=== PATIENT | female | born 1990 | race Caucasian/White ===

== ENCOUNTER 2017-02-06 15:12 | Emergency (ER) | payer OTHER ==
[~2017-02-06] VITALS: Ht 170.2 cm; Wt 88.9 kg
[~2017-02-06 15:12] MED LIST: BENTYL10 MG PO; DOXYCYCLINE HY100 MG PO; NORCO 5-325 TA1 EACH PO; NUVARING VAGIN1 EACH VAGINAL; OMEPRAZOLE20 MG PO; ZENZEDI2.5 MG PO; ZOLOFT100 MG PO
== END 2017-02-06 15:48 | disposition home or self-care (01) ==
LOC: ED 15:12
DX: H92.03 Otalgia, bilateral (principal)

== ENCOUNTER 2017-08-29 15:25 | Emergency (ER) | payer OTHER ==
[~2017-08-29] VITALS: Ht 170.2 cm; Wt 88.9 kg
[2017-08-29] MEDS ORDERED: ZOLOFT100 MG PO (15:41)
[2017-08-29] MEDS ORDERED: TOPROL XL25 MG PO (15:41)
[2017-08-29] MEDS ORDERED: XULANE PATCH1 EACH TD (15:48)
[2017-08-29] MEDS ORDERED: ULTRAM50 MG PO (18:57)
== END 2017-08-29 19:02 | disposition home or self-care (01) ==
LOC: ED 15:25
DX: R10.2 Pelvic and perineal pain (principal); F32.9 Major depressive disorder, single episode, unspecified; F17.200 Nicotine dependence, unspecified, uncomplicated; Z88.1 Allergy status to other antibiotic agents; Z88.8 Allergy status to other drugs, medicaments and biological substances; Z79.899 Other long term (current) drug therapy
CPT/HCPCS: 76830; 76856; 81001; 84703; 85025; 99284

== ENCOUNTER 2019-01-23 19:05 | Emergency (ER) | payer SELFPAY ==
[~2019-01-23] VITALS: Ht 170.2 cm; Wt 79.4 kg
--- OUTSIDE RECORDS SUMMARY | ~2019-01-23 | XMS | Encounter Summary ---
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 Oral Daily sodium chloride (PF) 10 mL Intravenous Q8H Continuous Infusions lactated ringers 125 mL/hr (03/21/14 0705) PRN Medications acetaminophen, calcium carbonate, diphenhydrAMINE (BENADRYL) IVPB, diphenhydrAMINE, lactate d ringers, lactated ringers, magnesium hydroxide, ondansetron, zolpidem OBJECTIVE Vital Signs: BP 141/76 | Pulse 75 | Temp(Src) 98.5 F (36.9 C) (Oral) | Resp 16 | Ht 1.702 m (5' 7") | Wt 82.101 kg (181 lb) | BMI 28.34 kg/m2 Temp: [98.2 F (36.8 C)-98.5 F (36.9 C)] 98.5 F (36.9 C) (03/22 1111) BP: (130-141)/(76-83) 141/76 mmHg (03/22 1111) Heart Rate: [75-83] 75 (03/22 1111) Resp: [16-18] 16 (03/22 1111) Physical Exam Constitutional: She appears well-developed and well-nourished. No distress. Pulmonary/Chest: Effort normal. No respiratory distress. Abdominal: Soft. There is no tenderness. There is no rebound and no guarding. NST reactive with normal baseline, moderate variability and no decelerations. [place]: irregul ar few contractions Musculoskeletal: She exhibits no edema. DATA CBC: Lab Results Component Value Date WBC 12.0* 03/22/2014 RBC 3.57* 03/22/2014 HGB 11.2* 03/22/2014 HCT 32.8* 03/22/2014 MCV 92.0 03/22/2014 MCH 31.3 03/22/2014 MCHC 34.0 03/22/2014 RDW 43.8 03/22/2014 PLT 180 03/22/2014 MPV 9.3 03/22/2014 DIFFTYPE MANUAL 03/22/2014 PROBLEM LIST Principal Problem: premature rupture of membranes in third trimester, Mar 19 ASSESSMENT & PLAN PPROM Day 4. Reassuring status No signs or symptoms of chorioamnionitis, not in labor No indication to deliver at this time Disposition: Inpatient Code Status: Full Code Suha Miranda MD 03/22/2014 Becka Sharif MD - 03/21/2014 11:19 AM PSTFormatting of this note might be different from the origi nal. Progress Notes by Suha Miranda MD at 03/21/14 1119 Author: Suha Miranda MD Service: (none) Author Type: Physician Filed: 03/21/14 1126 Date of Service: 03/21/14 111 Status: Addendum Housekeeper: Suha Miranda MD (Physician) Related Notes: Original Note by Suha Miranda MD (Physician) filed at 03/21/14 1121 [facility] Service: Obstetrics & Gynecology Progress Note Hospital Day: LOS: 2 days SUBJECTIVE Reports good movement. Continues to leak fluid per vagina, but denies vaginal bleedin g. Denies labor contractions but says her left lower abdomen "feels tender". Scheduled Medications azithromycin 1,000 mg Oral Daily clindamycin 300 mg Oral Q6H docusate sodium 100 mg Oral Daily lidocaine buffered 1% 0.5 mL Intradermal Once multivitamin & minerals w iron/FA 1 tablet Oral Daily with breakfast sertraline 100 mg Oral Daily sodium chloride (PF) 10 mL Intravenous Q8H Continuous Infusions lactated ringers 125 mL/hr (03/21/14 0705) PRN Medications acetaminophen, calcium carbonate, diphenhydrAMINE (BENADRYL) IVPB, diphenhydrAMINE, lactate d ringers, lactated ringers, magnesium hydroxide, ondansetron, zolpidem OBJECTIVE Vital Signs: BP 132/78 | Pulse 88 | Temp(Src) 98.2 F (36.8 C) (Oral) | Resp 18 | Ht 1.702 m (5' 7") | Wt 82.101 kg (181 lb) | BMI 28.34 kg/m2 Temp: [98.2 F (36.8 C)-98.4 F (36.9 C)] 98.2 F (36.8 C) (03/21 0840) BP: (117-132)/(61-78) 132/78 mmHg (03/21 839) Heart Rate: [79-90] 88 (03/21 839) Resp: [18] 18 (03/21 839) Physical Exam Constitutional: She appears well-developed and well-nourished. No distress. Pulmonary/Chest: Effort normal. No respiratory distress. Abdominal: Soft. There is no tenderness. There is no rebound and no guarding. No fundal tenderness NST reactive with normal baseline, moderate variability and no decelerations. [place]: irritability Musculoskeletal: She exhibits no edema or tenderness. DATA CBC: Lab Results Component Value Date WBC 14.0* 03/21/2014 RBC 3.55* 03/21/2014 HGB 11.2* 03/21/2014 HCT 32.5* 03/21/2014 MCV 91.5 03/21/2014 MCH 31.5 03/21/2014 MCHC 34.4 03/21/2014 RDW 42.0 03/21/2014 PLT 178 03/21/2014 MPV 9.8 03/21/2014 DIFFTYPE MANUAL 03/21/2014 PROBLEM LIST Principal Problem: premature rupture of membranes in third trimester, Mar 19 ASSESSMENT & PLAN PPROM Day 3. Not in labor, no chorioamnionitis Discontinued Magnesium Clindamycin and Azithromycin to oral. Disposition: Inpatient Code Status: Full Code Suha Miranda MD 03/21/2014 Becka Sharif MD - 03/20/2014 6:55 AM PSTFormatting of this note might be different from the origi nal. Progress Notes by Suha Miranda MD at 03/20/14654 Author: Suha Miranda MD Service: (none) Author Type: Physician Filed: 03/20/14 0658 Date of Service: 03/20/14654 Status: Signed Housekeeper: Suha Miranda MD (Physician) [facility] Service: Obstetrics & Gynecology Progress Note Hospital Day: LOS: 1 day SUBJECTIVE Complains of back pain. Otherwise comfortable. Reports good movement. Denies vaginal bleeding or painful contractions Scheduled Medications azithromycin 500 mg Intravenous Q24H betamethasone acetate-betamethasone sodium phosphate 12 mg Intramuscular Once clindamycin 900 mg Intravenous Q8H docusate sodium 100 mg Oral Daily influenza vaccine quadrivalent-split 0.5 mL Intramuscular Once Immunization lidocaine buffered 1% 0.5 mL Intradermal Once phenazopyridine 100 mg Oral TID WC pneumococcal 23-valent vaccine 0.5 mL Intramuscular Once Immunization multivitamin & minerals w iron/FA 1 tablet Oral Daily with breakfast sertraline 100 mg Oral Daily sodium chloride (PF) 10 mL Intravenous Q8H sodium chloride 0.9 % 10 mL Intravenous Q8H Continuous Infusions lactated ringers 75 mL/hr (03/19/142236) lactated ringers magnesium sulfate in LR 40g/1000mL 2 g/hr (03/19/142110) PRN Medications acetaminophen, calcium carbonate, calcium gluconate, lactated ringers, lactated ringers, la ctated ringers, lactated ringers, magnesium hydroxide, ondansetron, zolpidem OBJECTIVE Vital Signs: BP 120/56 | Pulse 80 | Temp(Src) 97.9 F (36.6 C) (Oral) | Resp 18 | Ht 1.702 m (5' 7") | Wt 82.101 kg (181 lb) | BMI 28.34 kg/m2 Temp: [97.9 F (36.6 C)-98.8 F (37.1 C)] 97.9 F (36.6 C) (03/20 325) BP: (118-136)/(55-82) 120/56 mmHg (03/20 325) Heart Rate: [78-90] 80 (03/20 325) Resp: [18-20] 18 (03/20 325) Height: [170.2 cm (5' 7")] 170.2 cm (5' 7") (03/19 1850) Weight: [82.101 kg (181 lb)] 82.101 kg (181 lb) (03/19 1850) BMI (Calculated): [28.4] 28.4 (03/19 1850) Physical Exam Constitutional: She appears well-developed and well-nourished. No distress. Cardiovascular: Normal rate, regular rhythm and normal heart sounds. Pulmonary/Chest: Breath sounds normal. No respiratory distress. She has no wheezes. She has no rales. Abdominal: Soft. There is no tenderness. There is no rebound and no guarding. NST reactive with normal baseline, moderate variability and no decelerations. [place]: no contractions Musculoskeletal: She exhibits no edema or tenderness. DATA CBC: Lab Results Component Value Date WBC 13.0* 03/20/2014 RBC 3.83 03/20/2014 HGB 12.2 03/20/2014 HCT 34.8 03/20/2014 MCV 90.9 03/20/2014 MCH 31.9 03/20/2014 MCHC 35.0 03/20/2014 RDW 41.1 03/20/2014 PLT 206 03/20/2014 MPV 9.8 03/20/2014 DIFFTYPE MANUAL 03/20/2014 Ultrasound Ob Limited 03/19/2014 1. Single live intrauterine gestation in cephalic orientation. 2. Cervix inco mpletely visualized, appears closed, 3.6 cm in length. 3. Fundal grade 1 placenta. 4. CHARO 12.7 cm. 5. Composite ultrasound age 32 weeks 4 days plus/-2 weeks 2 days, with ultrasound CARL 05/10/14, compared with LMP CARL 05/13/14. Electronically signed by Fermin Harper MD on 8:31 PM PROBLEM LIST Principal Problem: premature rupture of membranes in third trimester, Mar 19 ASSESSMENT & PLAN PPROM at [id number]. Reassuring status No signs or symptoms of chorioamnionitis or labor Continue Magnesium sulfate Continue Clindamycin and Azithromycin Second dose of Betamethasone today. Disposition: Inpatient Code Status: Full Code SUHA MIRANDA MD 03/20/2014 documented in t his encounter Plan of Treatment Not on filedocumented as of this encounter Procedures + +--------+ + + + | Procedure Name | Priori | Date/Time | Associated Diagnosis | Comments | | | ty | | | | + +--------+ + + + | CBC NO DIFFERENTIAL | Routin | 04/02/2014 | | Results for this | | | e | 5:05 AM | | procedure are in the | | | | PST | | results section. | + +--------+ + + + | TISSUE REQUEST FOR | Routin | 04/02/2014 | | Results for this | | PATHOLOGY (NON-ORD) | e | 12:00 AM | | procedure are in the | | | | PST | | results section. | + +--------+ + + + | EXTERNAL LAB: CBC | Routin | 03/31/2014 | | Results for this | | | e | 4:25 AM | | procedure are in the | | | | PST | | results section. | + +--------+ + + + | EXTERNAL LAB: CBC | Routin | 03/30/2014 | | Results for this | | | e | 5:48 PM | | procedure are in the | | | | PST | | results section. | + +--------+ + + + | EXTERNAL LAB: CBC | Routin | 03/30/2014 | | Results for this | | | e | 5:19 AM | | procedure are in the | | | | PST | | results section. | + +--------+ + + + | US BIOPHYSICAL | Routin | 03/29/2014 | | Results for this | | PROFILE WO NON | e | 9:13 PM | | procedure are in the | | STRESS | | PST | | results section. | + +--------+ + + + | EXTERNAL LAB: CBC | Routin | 03/29/2014 | | Results for this | | | e | 8:46 AM | | procedure are in the | | | | PST | | results section. | + +--------+ + + + | EXTERNAL LAB: AIDE | Routin | 03/29/2014 | | Results for this | | | e | 12:49 AM | | procedure are in the | | | | PST | | results section. | + +--------+ + + + | US BIOPHYSICAL | Routin | 03/27/2014 | | Results for this | | PROFILE WO NON | e | 10:12 AM | | procedure are in the | | STRESS | | PST | | results section. | + +--------+ + + + | EXTERNAL LAB: AIDE | Routin | 03/27/2014 | | Results for this | | | e | 8:26 AM | | procedure are in the | | | | PST | | results section. | + +--------+ + + + | US BIOPHYSICAL | Routin | 03/26/2014 | | Results for this | | PROFILE WO NON | e | 7:56 PM | | procedure are in the | | STRESS | | PST | | results section. | + +--------+ + + + | US BIOPHYSICAL | Routin | 03/25/2014 | | Results for this | | PROFILE WO NON | e | 8:49 PM | | procedure are in the | | STRESS | | PST | | results section. | + +--------+ + + + | C-REACTIVE PROTEIN | Routin | 03/25/2014 | | Results for this | | | e | 7:04 PM | | procedure are in the | | | | PST | | results section. | + +--------+ + + + | EXTERNAL LAB: CBC | Routin | 03/25/2014 | | Results for this | | | e | 5:13 AM | | procedure are in the | | | | PST | | results section. | + +--------+ + + + | EXTERNAL LAB: AIDE | Routin | 03/24/2014 | | Results for this | | | e | 4:38 AM | | procedure are in the | | | | PST | | results section. | + +--------+ + + + | US BIOPHYSICAL | Routin | 03/23/2014 | | Results for this | | PROFILE WO NON | e | 9:27 AM | | procedure are in the | | STRESS | | PST | | results section. | + +--------+ + + + | EXTERNAL LAB: AIDE | Routin | 03/23/2014 | | Results for this | | | e | 4:36 AM | | procedure are in the | | | | PST | | results section. | + +--------+ + + + | EXTERNAL LAB: AIDE | Routin | 03/22/2014 | | Results for this | | | e | 4:51 AM | | procedure are in the | | | | PST | | results section. | + +--------+ + + + | EXTERNAL LAB: AIDE | Routin | 03/21/2014 | | Results for this | | | e | 5:17 AM | | procedure are in the | | | | PST | | results section. | + +--------+ + + + | US BIOPHYSICAL | Routin | 03/20/2014 | | Results for this | | PROFILE WO NON | e | 8:51 AM | | procedure are in the | | STRESS | | PST | | results section. | + +--------+ + + + | EXTERNAL LAB: AIDE | Routin | 03/20/2014 | | Results for this | | | e | 4:31 AM | | procedure are in the | | | | PST | | results section. | + +--------+ + + + | COMPREHENSIVE | Routin | 03/20/2014 | | Results for this | | METABOLIC PANEL | e | 4:31 AM | | procedure are in the | | | | PST | | results section. | + +--------+ + + + | STREP B SCREEN | Routin | 03/19/2014 | | Results for this | | | e | 8:41 PM | | procedure are in the | | | | PST | | results section. | + +--------+ + + + | STREP B DNA PROBE, | Routin | 03/19/2014 | | Results for this | | NAAT | e | 8:41 PM | | procedure are in the | | | | PST | | results section. | + +--------+ + + + | US OB LIMITED 1 OR | Routin | 03/19/2014 | | Results for this | | MORE FETUS | e | 7:55 PM | | procedure are in the | | | | PST | | results section. | + +--------+ + + + | HIV 1 AND 2 ANTIBODY | Routin | 09/26/2013 | | Results for this | | DIFFERENTIATION | e | 12:00 AM | | procedure are in the | | | | PDT | | results section. | + +--------+ + + + | OBSTETRICS PANEL | Routin | 09/26/2013 | | Results for this | | | e | 12:00 AM | | procedure are in the | | | | PDT | | results section. | + +--------+ + + + documented in this encounter Results CBC no Differential (04/02/2014 5:05 AM PST) + + + + + + | Component | Value | Ref Range | Performed | Pathologist | | | | | At | Signature | + + + + + + | WBC | 11.8 (H)Comment: Testing | 3.8 - 11.0 K/uL | EXTERNAL | | | | performed at [facility], [address] | | LAB | | | | [address], | | | | | | [place] [address] | | | | + + + + + + | RED CELL | 3.40 (L)Comment: Testing | 3.70 - 5.10 | EXTERNAL | | | COUNT | performed at [facility], [address] | M/uL | LAB | | | | [address], | | | | | | [place] [address] | | | | + + + + + + | Hgb | 10.8 (L)Comment: Testing | 11.3 - 15.5 | EXTERNAL | | | | performed at [facility], [address] | g/dL | LAB | | | | [address], | | | | | | [place] [address] | | | | + + + + + + | Hematocrit, | 31.0 (L)Comment: Testing | 34.0 - 46.0 % | EXTERNAL | | | POC | performed at [facility], [address] | | LAB | | | | [address], | | | | | | [place] [address] | | | | + + + + + + | MCV | 91.3Comment: Testing | 80.0 - 100.0 fl | EXTERNAL | | | | performed at [facility], [address] | | LAB | | | | [address], | | | | | | [place] [address] | | | | + + + + + + | MCH | 31.9Comment: Testing | 27.0 - 34.0 pg | EXTERNAL | | | | performed at [facility], [address] | | LAB | | | | [address], | | | | | | [place] [address] | | | | + + + + + + | MCHC | 34.9Comment: Testing | 32.0 - 35.5 | EXTERNAL | | | | performed at [facility], [address] | g/dL | LAB | | | | [address], | | | | | | [place] [address] | | | | + + + + + + | RDW-CV | 41.6Comment: Testing | 37 - 53 fl | EXTERNAL | | | | performed at [facility], [address] | | LAB | | | | [address], | | | | | | [place] [address] | | | | + + + + + + | Platelet | 165Comment: Testing | 150 - 400 K/uL | EXTERNAL | | | Count | performed at [facility], [address] | | LAB | | | Plasma | [address], | | | | | | [place] [address] | | | | + + + + + + | MPV | 9.4Comment: Testing | fl | EXTERNAL | | | | performed at [facility], [address] | | LAB | | | | [address], | | | | | | [place] [address] | | | | + + + + + + + + | Specimen | + + | | + + + +---------+ + + | Performing | Address | City/State/Zipcode | Phone Number | | Organization | | | | + +---------+ + + | EXTERNAL LAB | | | | + +---------+ + + Tissue Request For Pathology (04/02/2014 12:00 AM PST) + + | Specimen | + + | Soft tissue sample | | (specimen) | + + + + + | Narrative | Performed At | + + + | SPECIMEN(S): A PLACENTA - MICRO 3T SPECIMEN SOURCE: A. PLACENTA | EXTERNAL LAB | | - MICRO 3T CLINICAL HISTORY: 04/01/2014 at 0811 H. Mother's age: | | | 23, OB history: P: 1 A: __ (spont/elect). Gestation age: 34, | | | 's weight: 2037 grams, score: 3/8, Rh: AB+ (Rhogam | | | yes/no), Rubella: imm, RPR: n/r. Specific issues of concern: 34 wk, | | | prolonged premature rupture of membranes | | | | | | 2 1/2 wk ? induced at 34 wks without clinical sign of infection. | | | FINAL PATHOLOGIC DIAGNOSIS: Placenta (349 grams), umbilical cord and | | | membranes. - Placental weight: approximately 36th percentile | | | for gestational age. - Chorionic villi with -Appropriate | | | maturation for gestational age. -No microcalcifications. | | | -No evidence of trophoblastic disease. - Three vessel umbilical | | | cord with no pathologic abnormality. - membranes with | | | -No pathologic abnormality. - No evidence of an infectious or | | | inflammatory process. GROSS DESCRIPTION: One specimen is received in | | | one container, labeled with the patient's name: A. Received | | | designated "Placenta and cord" consists of an 18.5 x 16.0 x 2.4 cm | | | discoid placenta. The 29.5 x 1.3 cm umbilical cord inserts 6.0 cm from | | | the nearest placental margin. Cut sections through the cord reveal | | | three vessels. The cord shows areas of knuckling. In accordance to | | | protocol, approximately 18.0 cm of umbilical cord is retained for | | | possible future studies. The placental membranes are translucent and | | | wrinkled with adherent blood clot. The surfaces are blue-purple | | | and shiny with the usual radiating vasculature. The maternal surface | | | is kaiser-brown and spongy with well-defined cotyledons appearing | | | intact. The trimmed placenta weighs 349 grams. Cut sections reveal a | | | deep maroon placenta parenchyma. Basal plate fibrin is of normal | | | thickness. No areas of infarction are grossly identified. Cassette | | | summary: (A1) umbilical cord and membranes; (A2) placenta parenchyma; | | | (A3) placenta parenchyma. FM MICROSCOPIC EXAMINATION: Histologic | | | sections of all submitted blocks are examined by light microscopy. | | | These findings, together with the gross examination, support the | | | pathologic diagnosis. PERFORMING LABORATORY: Professional | | | interpretation and technical preparation was performed by [facility] | | | [facility], [address], | | | [place] [address] (Charcoal Unloader: Noel Kan M.D.; [facility]#: | | | [id number]). Diagnostician: Jose Guadalupe Thomson MD Pathologist | | | Electronically Signed 04/04/2014 | | + + + + +---------+ + + | Performing | Address | City/State/[facility] | Phone Number | | Organization | | | | + +---------+ + + | EXTERNAL LAB | | | | + +---------+ + + External Lab: CBC (03/31/2014 4:25 AM PST) + + + + + + | Component | Value | Ref Range | Performed | Pathologist | | | | | At | Signature | + + + + + + | WBC | 15.5 (H)Comment: Testing | 3.8 - 11.0 K/uL | EXTERNAL | | | | performed at [facility], [address] | | LAB | | | | [address], | | | | | | [place] [address] | | | | + + + + + + | RED CELL | 3.77Comment: Testing | 3.70 - 5.10 | EXTERNAL | | | COUNT | performed at [facility], [address] | M/uL | LAB | | | | [address], | | | | | | [place] [address] | | | | + + + + + + | Hgb | 11.9Comment: Testing | 11.3 - 15.5 | EXTERNAL | | | | performed at [facility], [address] | g/dL | LAB | | | | [address], | | | | | | [place] [address] | | | | + + + + + + | Hematocrit, | 34.5Comment: Testing | 34.0 - 46.0 % | EXTERNAL | | | POC | performed at [facility], [address] | | LAB | | | | [address], | | | | | | [place] [address] | | | | + + + + + + | MCV | 91.6Comment: Testing | 80.0 - 100.0 fl | EXTERNAL | | | | performed at [facility], [address] | | LAB | | | | [address], | | | | | | [place] [address] | | | | + + + + + + | MCH | 31.7Comment: Testing | 27.0 - 34.0 pg | EXTERNAL | | | | performed at [facility], [address] | | LAB | | | | [address], | | | | | | [place] [address] | | | | + + + + + + | MCHC | 34.6Comment: Testing | 32.0 - 35.5 | EXTERNAL | | | | performed at [facility], [address] | g/dL | LAB | | | | [address], | | | | | | [place] [address] | | | | + + + + + + | RDW-CV | 42.4Comment: Testing | 37 - 53 fl | EXTERNAL | | | | performed at [facility], [address] | | LAB | | | | [address], | | | | | | [place] [address] | | | | + + + + + + | Platelet | 200Comment: Testing | 150 - 400 K/uL | EXTERNAL | | | Count | performed at [facility], [address] | | LAB | | | Plasma | [address], | | | | | | [place] [address] | | | | + + + + + + | MPV | 9.7Comment: Testing | fl | EXTERNAL | | | | performed at [facility], [address] | | LAB | | | | [address], | | | | | | [place] [address] | | | | + + + + + + | Differentia | AUTOMATEDComment: | | EXTERNAL | | | l Type | Testing performed at | | LAB | | | | [facility], [address] | | | | | | [place] | | | | | | [address] | | | | + + + + + + | % Segmented | 72.3Comment: Testing | % | EXTERNAL | | | | performed at [facility], [address] | | LAB | | | Neutrophils | [address], | | | | | | [place] [address] | | | | + + + + + + | % | 19.1Comment: Testing | % | EXTERNAL | | | Lymphocytes | performed at [facility], [address] | | LAB | | | | [address], | | | | | | [place] [address] | | | | + + + + + + | % Monocytes | 7.2Comment: Testing | % | EXTERNAL | | | | performed at [facility], [address] | | LAB | | | | [address], | | | | | | [place] [address] | | | | + + + + + + | % | 1.0Comment: Testing | % | EXTERNAL | | | Eosinophils | performed at [facility], [address] | | LAB | | | | [address], | | | | | | [place] [address] | | | | + + + + + + | % Basophils | 0.4Comment: Testing | % | EXTERNAL | | | | performed at [facility], [address] | | LAB | | | | [address], | | | | | | [place] [address] | | | | + + + + + + | Absolute | 11.2 (H)Comment: Testing | 1.9 - 7.4 K/uL | EXTERNAL | | | Segmented | performed at [facility], [address] | | LAB | | | Neutrophils | [address], | | | | | | [place] [address] | | | | + + + + + + | Absolute | 3.0Comment: Testing | 1.0 - 3.9 K/uL | EXTERNAL | | | Lymphocytes | performed at [facility], [address] | | LAB | | | | [address], | | | | | | [place] [address] | | | | + + + + + + | Absolute | 1.1 (H)Comment: Testing | 0 - 0.8 K/uL | EXTERNAL | | | Monocytes | performed at [facility], [address] | | LAB | | | | [address], | | | | | | [place] [address] | | | | + + + + + + | Absolute | 0.2Comment: Testing | 0 - 0.5 K/uL | EXTERNAL | | | Eosinophils | performed at [facility], [address] | | LAB | | | | [address], | | | | | | [place] [address] | | | | + + + + + + | Absolute | 0.1Comment: Testing | 0 - 0.1 K/uL | EXTERNAL | | | Basophils | performed at [facility], [address] | | LAB | | | | [address], | | | | | | [place] [address] | | | | + + + + + + + + | Specimen | + + | Blood specimen | | (specimen) | + + + +---------+ + + | Performing | Address | City/State/Zipcode | Phone Number | | Organization | | | | + +---------+ + + | EXTERNAL LAB | | | | + +---------+ + + External Lab: CBC (03/30/2014 5:48 PM PST) + + + + + + | Component | Value | Ref Range | Performed | Pathologist | | | | | At | Signature | + + + + + + | WBC | 14.8 (H)Comment: Testing | 3.8 - 11.0 K/uL | EXTERNAL | | | | performed at [facility], [address] | | LAB | | | | [address], | | | | | | [place] [address] | | | | + + + + + + | RED CELL | 3.98Comment: Testing | 3.70 - 5.10 | EXTERNAL | | | COUNT | performed at [facility], [address] | M/uL | LAB | | | | [address], | | | | | | [place] [address] | | | | + + + + + + | Hgb | 12.6Comment: Testing | 11.3 - 15.5 | EXTERNAL | | | | performed at [facility], [address] | g/dL | LAB | | | | [address], | | | | | | [place] [address] | | | | + + + + + + | Hematocrit, | 36.6Comment: Testing | 34.0 - 46.0 % | EXTERNAL | | | POC | performed at [facility], [address] | | LAB | | | | [address], | | | | | | [place] [address] | | | | + + + + + + | MCV | 92.0Comment: Testing | 80.0 - 100.0 fl | EXTERNAL | | | | performed at [facility], [address] | | LAB | | | | [address], | | | | | | [place] [address] | | | | + + + + + + | MCH | 31.6Comment: Testing | 27.0 - 34.0 pg | EXTERNAL | | | | performed at [facility], [address] | | LAB | | | | [address], | | | | | | [place] [address] | | | | + + + + + + | MCHC | 34.4Comment: Testing | 32.0 - 35.5 | EXTERNAL | | | | performed at [facility], [address] | g/dL | LAB | | | | [address], | | | | | | [place] [address] | | | | + + + + + + | RDW-CV | 42.9Comment: Testing | 37 - 53 fl | EXTERNAL | | | | performed at [facility], [address] | | LAB | | | | [address], | | | | | | [place] [address] | | | | + + + + + + | Platelet | 210Comment: Testing | 150 - 400 K/uL | EXTERNAL | | | Count | performed at [facility], [address] | | LAB | | | Plasma | [address], | | | | | | [place] [address] | | | | + + + + + + | MPV | 9.7Comment: Testing | fl | EXTERNAL | | | | performed at [facility], [address] | | LAB | | | | [address], | | | | | | [place] [address] | | | | + + + + + + | Differentia | AUTOMATEDComment: | | EXTERNAL | | | l Type | Testing performed at | | LAB | | | | [facility], [address] | | | | | | [place] | | | | | | [address] | | | | + + + + + + | % Segmented | 78.3Comment: Testing | % | EXTERNAL | | | | performed at [facility], [address] | | LAB | | | Neutrophils | [address] [place], | | | | | | [place] [address] | | | | + + + + + + | % | 14.7Comment: Testing | % | EXTERNAL | | | Lymphocytes | performed at [facility], [address] | | LAB | | | | [address], | | | | | | [place] [address] | | | | + + + + + + | % Monocytes | 6.0Comment: Testing | % | EXTERNAL | | | | performed at [facility], [address] | | LAB | | | | [address], | | | | | | [place] [address] | | | | + + + + + + | % | 0.7Comment: Testing | % | EXTERNAL | | | Eosinophils | performed at [facility], [address] | | LAB | | | | [address], | | | | | | [place] [address] | | | | + + + + + + | % Basophils | 0.3Comment: Testing | % | EXTERNAL | | | | performed at [facility], [address] | | LAB | | | | [address], | | | | | | [place] [address] | | | | + + + + + + | Absolute | 11.6 (H)Comment: Testing | 1.9 - 7.4 K/uL | EXTERNAL | | | Segmented | performed at [facility], [address] | | LAB | | | Neutrophils | [address], | | | | | | [place] [address] | | | | + + + + + + | Absolute | 2.2Comment: Testing | 1.0 - 3.9 K/uL | EXTERNAL | | | Lymphocytes | performed at [facility], [address] | | LAB | | | | [address], | | | | | | [place] [address] | | | | + + + + + + | Absolute | 0.9 (H)Comment: Testing | 0 - 0.8 K/uL | EXTERNAL | | | Monocytes | performed at [facility], [address] | | LAB | | | | [address], | | | | | | [place] [address] | | | | + + + + + + | Absolute | 0.1Comment: Testing | 0 - 0.5 K/uL | EXTERNAL | | | Eosinophils | performed at [facility], [address] | | LAB | | | | [address], | | | | | | [place] [address] | | | | + + + + + + | Absolute | 0.1Comment: Testing | 0 - 0.1 K/uL | EXTERNAL | | | Basophils | performed at [facility], [address] | | LAB | | | | [address], | | | | | | [place] [address] | | | | + + + + + + + + | Specimen | + + | Blood specimen | | (specimen) | + + + +---------+ + + | Performing | Address | City/State/Zipcode | Phone Number | | Organization | | | | + +---------+ + + | EXTERNAL LAB | | | | + +---------+ + + External Lab: AIDE (03/30/2014 5:19 AM PST) + + + + + + | Component | Value | Ref Range | Performed | Pathologist | | | | | At | Signature | + + + + + + | WBC | 15.1 (H)Comment: Testing | 3.8 - 11.0 K/uL | EXTERNAL | | | | performed at [facility], [address] | | LAB | | | | [address], | | | | | | [place] [address] | | | | + + + + + + | RED CELL | 3.74Comment: Testing | 3.70 - 5.10 | EXTERNAL | | | COUNT | performed at [facility], [address] | M/uL | LAB | | | | [address], | | | | | | [place] [address] | | | | + + + + + + | Hgb | 11.8Comment: Testing | 11.3 - 15.5 | EXTERNAL | | | | performed at [facility], [address] | g/dL | LAB | | | | [address], | | | | | | [place] [address] | | | | + + + + + + | Hematocrit, | 34.2Comment: Testing | 34.0 - 46.0 % | EXTERNAL | | | POC | performed at [facility], [address] | | LAB | | | | [address], | | | | | | [place] [address] | | | | + + + + + + | MCV | 91.4Comment: Testing | 80.0 - 100.0 fl | EXTERNAL | | | | performed at [facility], [address] | | LAB | | | | [address], | | | | | | [place] [address] | | | | + + + + + + | MCH | 31.5Comment: Testing | 27.0 - 34.0 pg | EXTERNAL | | | | performed at [facility], [address] | | LAB | | | | [address], | | | | | | [place] [address] | | | | + + + + + + | MCHC | 34.4Comment: Testing | 32.0 - 35.5 | EXTERNAL | | | | performed at [facility], [address] | g/dL | LAB | | | | [address], | | | | | | [place] [address] | | | | + + + + + + | RDW-CV | 41.6Comment: Testing | 37 - 53 fl | EXTERNAL | | | | performed at [facility], [address] | | LAB | | | | [address], | | | | | | [place] [address] | | | | + + + + + + | Platelet | 193Comment: Testing | 150 - 400 K/uL | EXTERNAL | | | Count | performed at [facility], [address] | | LAB | | | Plasma | [address] [place], | | | | | | [place] [address] | | | | + + + + + + | MPV | 9.6Comment: Testing | fl | EXTERNAL | | | | performed at [facility], [address] | | LAB | | | | [address], | | | | | | [place] [address] | | | | + + + + + + | Differentia | AUTOMATEDComment: | | EXTERNAL | | | l Type | Testing performed at | | LAB | | | | [facility], [address] | | | | | | [place] | | | | | | [address] | | | | + + + + + + | % Segmented | 70.4Comment: Testing | % | EXTERNAL | | | | performed at [facility], [address] | | LAB | | | Neutrophils | [address], | | | | | | [place] [address] | | | | + + + + + + | % | 20.6Comment: Testing | % | EXTERNAL | | | Lymphocytes | performed at [facility], [address] | | LAB | | | | [address], | | | | | | [place] [address] | | | | + + + + + + | % Monocytes | 7.9Comment: Testing | % | EXTERNAL | | | | performed at [facility], [address] | | LAB | | | | [address], | | | | | | [place] [address] | | | | + + + + + + | % | 0.8Comment: Testing | % | EXTERNAL | | | Eosinophils | performed at [facility], [address] | | LAB | | | | [address], | | | | | | [place] [address] | | | | + + + + + + | % Basophils | 0.3Comment: Testing | % | EXTERNAL | | | | performed at [facility], [address] | | LAB | | | | [address], | | | | | | [place] [address] | | | | + + + + + + | Absolute | 10.6 (H)Comment: Testing | 1.9 - 7.4 K/uL | EXTERNAL | | | Segmented | performed at [facility], [address] | | LAB | | | Neutrophils | [address], | | | | | | [place] [address] | | | | + + + + + + | Absolute | 3.1Comment: Testing | 1.0 - 3.9 K/uL | EXTERNAL | | | Lymphocytes | performed at [facility], [address] | | LAB | | | | [address], | | | | | | [place] [address] | | | | + + + + + + | Absolute | 1.2 (H)Comment: Testing | 0 - 0.8 K/uL | EXTERNAL | | | Monocytes | performed at [facility], [address] | | LAB | | | [address], | | | | | | [place] [address] | | | | + + + + + + | Absolute | 0.1Comment: Testing | 0 - 0.5 K/uL | EXTERNAL | | | Eosinophils | performed at [facility], [address] | | LAB | | | | [address], | | | | | | [place] [address] | | | | + + + + + + | Absolute | 0.0Comment: Testing | 0 - 0.1 K/uL | EXTERNAL | | | Basophils | performed at [facility], [address] | | LAB | | | | [address], | | | | | | [place] [address] | | | | + + + + + + + + | Specimen | + + | Blood specimen | | (specimen) | + + + +---------+ + + | Performing | Address | City/State/Zipcode | Phone Number | | Organization | | | | + +---------+ + + | EXTERNAL LAB | | | | + +---------+ + + US BPP wo Non Stress (03/29/2014 9:13 PM PST) + + | Specimen | + + | | + + + + + | Impressions | Performed At | + + + | 1. Biophysical Profile Score = 8/8 2. heart rate = 142 | | | beats/min 3. Amniotic fluid index: 13.3 cm. Electronically | | | signed by Oliver Suarez MD on 03/29/2014 9:18 PM | | + + + + + + | Narrative | Performed At | + + + | HISTORY: Premature rupture of membranes TECHNIQUE: Imaging was | | | performed using a curved array transabdominal transducer. | | | Grayscale, color flow and M-mode techniques were utilized. | | | COMPARISON: 03/27/2014 FINDINGS: The position is vertex. | | | Placental position: Left lateral. Placenta previa: No. | | | Amniotic fluid index: 13.3 cm. Previous amniotic fluid index measured | | | 11.1 cm on 03/27/2014. The largest single pocket of amniotic fluid | | | measures 4.5 cm. BIOPHYSICAL PROFILE: Movement = 2 Tone = 2 | | | Breathing = 2 AFV = 2 Biophysical Profile Score = 8/8 | | | heart rate = 142 beats/min | | + + + + + | Procedure Note | + + | Scout Sheets Conversion - 10/07/2018 6:57 AM PDT HISTORY:Premature rupture of membranes | | TECHNIQUE:Imaging was performed using a curved array transabdominal transducer. | | Grayscale, color flow and M-mode techniques were utilized. COMPARISON:03/27/2014 | | FINDINGS:The position is vertex. Placental position: Left lateral.Placenta | | previa: No. Amniotic fluid index: 13.3 cm.Previous amniotic fluid index measured 11.1 cm | | on 03/27/2014.The largest single pocket of amniotic fluid measures 4.5 cm. BIOPHYSICAL | | PROFILE:Movement = 2Tone = 2Breathing = 2AFV = 2Biophysical Profile Score = 8/8 | | heart rate = 142 beats/min IMPRESSION: 1. Biophysical Profile Score = 8/82. | | heart rate = 142 beats/min3. Amniotic fluid index: 13.3 cm. | |The position is vertex. | | | |Placental position: Left lateral. | |Placenta previa: No. | | | |Amniotic fluid index: 13.3 cm. | |Previous amniotic fluid index measured 11.1 cm on 03/27/2014. | |The largest single pocket of amniotic fluid measures 4.5 cm. | | | | | |BIOPHYSICAL PROFILE: | |Movement = 2 | |Tone = 2 | |Breathing = 2 | |AFV = 2 | |Biophysical Profile Score = 8/8 | | | | heart rate = 142 beats/min | | | |IMPRESSION: | |1. Biophysical Profile Score = 8/8 | |2. heart rate = 142 beats/min | |3. Amniotic fluid index: 13.3 cm. | | | | | + + External Lab: CBC (03/29/2014 8:46 AM PST) + + + + + + | Component | Value | Ref Range | Performed | Pathologist | | | | | At | Signature | + + + + + + | WBC | 13.2 (H)Comment: Testing | 3.8 - 11.0 K/uL | EXTERNAL | | | | performed at [facility] | | LAB | | | | [address];[place] | | | | | | [address] | | | | + + + + + + | RED CELL | 3.93Comment: Testing | 3.70 - 5.10 | EXTERNAL | | | COUNT | performed at [facility];[address] | M/uL | LAB | | | | [address];[place] | | | | | | [address] | | | | + + + + + + | Hgb | 12.2Comment: Testing | 11.3 - 15.5 | EXTERNAL | | | | performed at [facility];[address] | g/dL | LAB | | | | [address];[place] | | | | | | [address] | | | | + + + + + + | Hematocrit, | 35.4Comment: Testing | 34.0 - 46.0 % | EXTERNAL | | | POC | performed at [facility];[address] | | LAB | | | | [address];[place] | | | | | | [address] | | | | + + + + + + | MCV | 90.0Comment: Testing | 80.0 - 100.0 fl | EXTERNAL | | | | performed at [facility];[address] | | LAB | | | | [address];[place] | | | | | | [address] | | | | + + + + + + | MCH | 31.0Comment: Testing | 27.0 - 34.0 pg | EXTERNAL | | | | performed at [facility];[address] | | LAB | | | | [address];[place] | | | | | | [address] | | | | + + + + + + | MCHC | 34.5Comment: Testing | 32.0 - 35.5 | EXTERNAL | | | | performed at [facility];[address] | g/dL | LAB | | | | [address];[place] | | | | | | [address] | | | | + + + + + + | RDW-CV | 42.9Comment: Testing | 37 - 53 fl | EXTERNAL | | | | performed at [facility];[address] | | LAB | | | | [address];[place] | | | | | | [address] | | | | + + + + + + | Platelet | 213Comment: Testing | 150 - 400 K/uL | EXTERNAL | | | Count | performed at [facility];[address] | | LAB | | | Plasma | [address];[place] | | | | | | [address] | | | | + + + + + + | MPV | 8.9Comment: Testing | fl | EXTERNAL | | | | performed at [facility];[address] | | LAB | | | | [address];[place] | | | | | | [address] | | | | + + + + + + | Differentia | AUTOMATEDComment: | | EXTERNAL | | | l Type | Testing performed at | | LAB | | | | [facility];[address] | [address];[place] [address] | | | | + + + + + + | % Segmented | 70.7Comment: Testing | % | EXTERNAL | | | | performed at [facility];[address] | | LAB | | | Neutrophils | [address];[place] | | | | | | [address] | | | | + + + + + + | % | 21.5Comment: Testing | % | EXTERNAL | | | Lymphocytes | performed at [facility];[address] | | LAB | | | | [address];[place] | | | | | | [address] | | | | + + + + + + | % Monocytes | 6.2Comment: Testing | % | EXTERNAL | | | | performed at [facility];[address] | | LAB | | | | [address];[place] | | | | | | [address] | | | | + + + + + + | % | 1.3Comment: Testing | % | EXTERNAL | | | Eosinophils | performed at [facility];[address] | | LAB | | | | [address];[place] | | | | | | [address] | | | | + + + + + + | % Basophils | 0.3Comment: Testing | % | EXTERNAL | | | | performed at [facility];[address] | | LAB | | | | [address];[place] | | | | | | [address] | | | | + + + + + + | Absolute | 9.3 (H)Comment: Testing | 1.9 - 7.4 K/uL | EXTERNAL | | | Segmented | performed at [facility];[address] | | LAB | | | Neutrophils | [address];[place] | | | | | | [address] | | | | + + + + + + | Absolute | 2.8Comment: Testing | 1.0 - 3.9 K/uL | EXTERNAL | | | Lymphocytes | performed at [facility];[address] | | LAB | | | | [address];[place] | | | | | | [address] | | | | + + + + + + | Absolute | 0.8Comment: Testing | 0 - 0.8 K/uL | EXTERNAL | | | Monocytes | performed at [facility];[address] | | LAB | | | | [address];[place] | | | | | | [address] | | | | + + + + + + | Absolute | 0.2Comment: Testing | 0 - 0.5 K/uL | EXTERNAL | | | Eosinophils | performed at [facility];[address] | | LAB | | | | [address];[place] | | | | | | [address] | | | | + + + + + + | Absolute | 0.0Comment: Testing | 0 - 0.1 K/uL | EXTERNAL | | | Basophils | performed at [facility];[address] | | LAB | | | | [address];[place] | | | | | | [address] | | | | + + + + + + + + | Specimen | + + | Blood specimen | | (specimen) | + + + +---------+ + + | Performing | Address | City/State/Zipcode | Phone Number | | Organization | | | | + +---------+ + + | EXTERNAL LAB | | | | + +---------+ + + External Lab: CBC (03/29/2014 12:49 AM PST) + + + + + + | Component | Value | Ref Range | Performed | Pathologist | | | | | At | Signature | + + + + + + | WBC | 15.2 (H)Comment: Testing | 3.8 - 11.0 K/uL | EXTERNAL | | | | performed at [facility];[address] | | LAB | | | | [address];[place] | | | | | | [address] | | | | + + + + + + | RED CELL | 4.01Comment: Testing | 3.70 - 5.10 | EXTERNAL | | | COUNT | performed at [facility];[address] | M/uL | LAB | | | | [address];[place] | | | | | | [address] | | | | + + + + + + | Hgb | 12.4Comment: Testing | 11.3 - 15.5 | EXTERNAL | | | | performed at [facility];[address] | g/dL | LAB | | | | [address];[place] | | | | | | [address] | | | | + + + + + + | Hematocrit, | 36.1Comment: Testing | 34.0 - 46.0 % | EXTERNAL | | | POC | performed at [facility];[address] | | LAB | | | | [address];[place] | | | | | | [address] | | | | + + + + + + | MCV | 89.9Comment: Testing | 80.0 - 100.0 fl | EXTERNAL | | | | performed at [facility];[address] | | LAB | | | | [address];[place] | | | | | | [address] | | | | + + + + + + | MCH | 31.0Comment: Testing | 27.0 - 34.0 pg | EXTERNAL | | | | performed at [facility];[address] | | LAB | | | | [address];[place] | | | | | | [address] | | | | + + + + + + | MCHC | 34.5Comment: Testing | 32.0 - 35.5 | EXTERNAL | | | | performed at [facility];[address] | g/dL | LAB | | | | [address];[place] | | | | | | [address] | | | | + + + + + + | RDW-CV | 42.0Comment: Testing | 37 - 53 fl | EXTERNAL | | | | performed at [facility];[address] | | LAB | | | | [address];[place] | | | | | | [address] | | | | + + + + + + | Platelet | 235Comment: Testing | 150 - 400 K/uL | EXTERNAL | | | Count | performed at [facility];[address] | | LAB | | | Plasma | [address];[place] | | | | | | [address] | | | | + + + + + + | MPV | 9.0Comment: Testing | fl | EXTERNAL | | | | performed at [facility];[address] | | LAB | | | | [address];[place] | | | | | | [address] | | | | + + + + + + | Differentia | AUTOMATEDComment: | | EXTERNAL | | | l Type | Testing performed at | | LAB | | | | [facility];[address];[place] [address] | | | | + + + + + + | % Segmented | 74.5Comment: Testing | % | EXTERNAL | | | | performed at [facility];[address] | | LAB | | | Neutrophils | [address];[place] | | | | | | [address] | | | | + + + + + + | % | 16.8Comment: Testing | % | EXTERNAL | | | Lymphocytes | performed at [facility];[address] | | LAB | | | | [address];[place] | | | | | | [address] | | | | + + + + + + | % Monocytes | 7.5Comment: Testing | % | EXTERNAL | | | | performed at [facility];[address] | | LAB | | | | [address];[place] | | | | | | [address] | | | | + + + + + + | % | 1.1Comment: Testing | % | EXTERNAL | | | Eosinophils | performed at [facility];[address] | | LAB | | | | [address];[place] | | | | | | [address] | | | | + + + + + + | % Basophils | 0.1Comment: Testing | % | EXTERNAL | | | | performed at [facility];[address] | | LAB | | | | [address];[place] | | | | | | [address] | | | | + + + + + + | Absolute | 11.3 (H)Comment: Testing | 1.9 - 7.4 K/uL | EXTERNAL | | | Segmented | performed at [facility];[address] | | LAB | | | Neutrophils | [address];[place] | | | | | | [address] | | | | + + + + + + | Absolute | 2.6Comment: Testing | 1.0 - 3.9 K/uL | EXTERNAL | | | Lymphocytes | performed at [facility];[address] | | LAB | | | | [address];[place] | | | | | | [address] | | | | + + + + + + | Absolute | 1.1 (H)Comment: Testing | 0 - 0.8 K/uL | EXTERNAL | | | Monocytes | performed at [facility];[address] | | LAB | | | | [address];[place] | | | | | | [address] | | | | + + + + + + | Absolute | 0.2Comment: Testing | 0 - 0.5 K/uL | EXTERNAL | | | Eosinophils | performed at [facility];[address] | | LAB | | | | [address];[place] | | | | | | [address] | | | | + + + + + + | Absolute | 0.0Comment: Testing | 0 - 0.1 K/uL | EXTERNAL | | | Basophils | performed at [facility];[address] | | LAB | | | | [address];[place], [place] | | | | | | [address] | | | | + + + + + + + + | Specimen | + + | Blood specimen | | (specimen) | + + + +---------+ + + | Performing | Address | City/State/Zipcode | Phone Number | | Organization | | | | + +---------+ + + | EXTERNAL LAB | | | | + +---------+ + + US BPP wo Non Stress (03/27/2014 10:12 AM PST) + + | Specimen | + + | | + + + + + | Impressions | Performed At | + + + | 1. Biophysical profile score 09/29. 2. CHARO 11.1 cm, compared with | | | 13.1 cm previous day. 3. Cephalic orientation with left lateral | | | grade 1 placenta, not low. | | + + + + + + | Narrative | Performed At | + + + | HISTORY: Premature rupture membranes. . COMPARISON: | | | 03/26/14. TECHNIQUE: 4 MHz curvilinear sonographic grayscale, | | | color-flow, M-mode evaluation of the pelvis. FINDINGS: | | | Single live intrauterine gestation in cephalic orientation, spine to | | | the maternal right. Placenta left lateral, grade 1, not low. | | | heart rate 149 beats per minute. Biophysical profile: Normal | | | body movements. Normal tone. Normal breathing | | | movements. CHARO 11.1 cm, compared with 13.1 cm previous day. | | + + + + + | Procedure Note | + + | Sudeep, Rad Conversion - 10/07/2018 6:57 AM PDT HISTORY:Premature rupture membranes. | | . COMPARISON:03/26/14. TECHNIQUE:4 MHz curvilinear sonographic grayscale, | | color-flow, M-mode evaluation of the pelvis. FINDINGS:Single live intrauterine | | gestation in cephalic orientation, spine to the maternal right. Placenta left lateral, | | grade 1, not low. heart rate 149 beats per minute. Biophysical profile:Normal | | body movements.Normal tone.Normal breathing movements.CHARO 11.1 cm, | | compared with 13.1 cm previous day. IMPRESSION: 1. Biophysical profile score 09/29.2. | | CHARO 11.1 cm, compared with 13.1 cm previous day.3. Cephalic orientation with left | | lateral grade 1 placenta, not low. Electronically signed by Fermin Harper MD on | | 03/27/2014 10:16 AM | |Single live intrauterine gestation in cephalic orientation, spine to the maternal right. Pl acenta left lateral, grade 1, not low. heart rate 149 beats per minute. | | | |Biophysical profile: | |Normal body movements. | |Normal tone. | |Normal breathing movements. | |CHARO 11.1 cm, compared with 13.1 cm previous day. | | | |IMPRESSION: | |1. Biophysical profile score 8. | |2. CHARO 11.1 cm, compared with 13.1 cm previous day. | |3. Cephalic orientation with left lateral grade 1 placenta, not low. | | | | | + + External Lab: AIDE (03/27/2014 8:26 AM PST) + + + + + + | Component | Value | Ref Range | Performed | Pathologist | | | | | At | Signature | + + + + + + | WBC | 13.4 (H)Comment: Testing | 3.8 - 11.0 K/uL | EXTERNAL | | | | performed at [facility];[address] | | LAB | | | | [address];[place] | | | | | | [address] | | | | + + + + + + | RED CELL | 4.00Comment: Testing | 3.70 - 5.10 | EXTERNAL | | | COUNT | performed at [facility];[address] | M/uL | LAB | | | | [address];[place] | | | | | | [address] | | | | + + + + + + | Hgb | 12.3Comment: Testing | 11.3 - 15.5 | EXTERNAL | | | | performed at [facility];[address] | g/dL | LAB | | | | [address];[place] | | | | | | [address] | | | | + + + + + + | Hematocrit, | 35.8Comment: Testing | 34.0 - 46.0 % | EXTERNAL | | | POC | performed at [facility];888 | | LAB | | | | [address];[place] | | | | | | [address] | | | | + + + + + + | MCV | 89.7Comment: Testing | 80.0 - 100.0 fl | EXTERNAL | | | | performed at [facility];888 | | LAB | | | | [address];[place] | | | | | | [address] | | | | + + + + + + | MCH | 30.9Comment: Testing | 27.0 - 34.0 pg | EXTERNAL | | | | performed at [facility];888 | | LAB | | | | [address];[place] | | | | | | [address] | | | | + + + + + + | MCHC | 34.4Comment: Testing | 32.0 - 35.5 | EXTERNAL | | | | performed at [facility];888 | g/dL | LAB | | | | [address];[place] | | | | | | [address] | | | | + + + + + + | RDW-CV | 42.4Comment: Testing | 37 - 53 fl | EXTERNAL | | | | performed at [facility];888 | | LAB | | | | [address];[place] | | | | | | [address] | | | | + + + + + + | Platelet | 212Comment: Testing | 150 - 400 K/uL | EXTERNAL | | | Count | performed at [facility];888 | | LAB | | | Plasma | [address];[place] | | | | | | [address] | | | | + + + + + + | MPV | 8.7Comment: Testing | fl | EXTERNAL | | | | performed at [facility];[address] | | LAB | | | | [address];[place] | | | | | | [address] | | | | + + + + + + | Differentia | AUTOMATEDComment: | | EXTERNAL | | | l Type | Testing performed at | | LAB | | | | [facility];[address];[place] [address] | | | | + + + + + + | % Segmented | 68.0Comment: Testing | % | EXTERNAL | | | | performed at [facility];888 | | LAB | | | Neutrophils | [address];[place] | | | | | | [address] | | | | + + + + + + | % | 23.0Comment: Testing | % | EXTERNAL | | | Lymphocytes | performed at [facility];[address] | | LAB | | | | [address];[place] | | | | | | [address] | | | | + + + + + + | % Monocytes | 6.9Comment: Testing | % | EXTERNAL | | | | performed at [facility];[address] | | LAB | | | | [address];[place] | | | | | | [address] | | | | + + + + + + | % | 1.7Comment: Testing | % | EXTERNAL | | | Eosinophils | performed at [facility];[address] | | LAB | | | | [address];[place] | | | | | | [address] | | | | + + + + + + | % Basophils | 0.4Comment: Testing | % | EXTERNAL | | | | performed at [facility];[address] | | LAB | | | | [address];[place] | | | | | | [address] | | | | + + + + + + | Absolute | 9.1 (H)Comment: Testing | 1.9 - 7.4 K/uL | EXTERNAL | | | Segmented | performed at [facility];[address] | | LAB | | | Neutrophils | [address];[place] | | | | | | [address] | | | | + + + + + + | Absolute | 3.1Comment: Testing | 1.0 - 3.9 K/uL | EXTERNAL | | | Lymphocytes | performed at [facility];[address] | | LAB | | | | [address];[place] | | | | | | [address] | | | | + + + + + + | Absolute | 0.9 (H)Comment: Testing | 0 - 0.8 K/uL | EXTERNAL | | | Monocytes | performed at [facility];[address] | | LAB | | | | [address];[place] | | | | | | [address] | | | | + + + + + + | Absolute | 0.2Comment: Testing | 0 - 0.5 K/uL | EXTERNAL | | | Eosinophils | performed at [facility];[address] | | LAB | | | | [address];[place] | | | | | | [address] | | | | + + + + + + | Absolute | 0.1Comment: Testing | 0 - 0.1 K/uL | EXTERNAL | | | Basophils | performed at [facility];[address] | | LAB | | | | [address];[place] | | | | | | [address] | | | | + + + + + + + + | Specimen | + + | Blood specimen | | (specimen) | + + + +---------+ + + | Performing | Address | City/State/Zipcode | Phone Number | | Organization | | | | + +---------+ + + | EXTERNAL LAB | | | | + +---------+ + + US BPP wo Non Stress (03/26/2014 7:56 PM PST) + + | Specimen | + + | | + + + + + | Impressions | Performed At | + + + | 1. Biophysical Profile Score = 8/8 2. heart rate = 146 | | | beats/min 3. Amniotic fluid index: 13.1 cm. Electronically | | | signed by Oliver Suarez MD on 03/26/2014 7:51 PM | | + + + + + + | Narrative | Performed At | + + + | HISTORY: Premature rupture of membranes TECHNIQUE: Imaging was | | | performed using a curved array transabdominal transducer. | | | Grayscale, color flow and M-mode techniques were utilized. | | | COMPARISON: 03/25/2014 FINDINGS: The position is vertex. | | | Placental position: Anterior . Placenta previa: No. Amniotic | | | fluid index: 13.1 cm. Previous amniotic fluid index measured 16.4 cm | | | on 03/25/2014. The largest single pocket of amniotic fluid measures 6.6 | | | cm. BIOPHYSICAL PROFILE: Movement = 2 Tone = 2 Breathing = | | | 2 AFV = 2 Biophysical Profile Score = 8/8 heart rate = 146 | | | beats/min | | + + + + + | Procedure Note | + + | Sudeep Rad Conversion - 10/07/2018 6:57 AM PDT HISTORY:Premature rupture of membranes | | TECHNIQUE:Imaging was performed using a curved array transabdominal transducer. | | Grayscale, color flow and M-mode techniques were utilized. COMPARISON:03/25/2014 | | FINDINGS:The position is vertex. Placental position: Anterior .Placenta previa: | | No. Amniotic fluid index: 13.1 cm.Previous amniotic fluid index measured 16.4 cm on | | 03/25/2014.The largest single pocket of amniotic fluid measures 6.6 cm. BIOPHYSICAL | | PROFILE:Movement = 2Tone = 2Breathing = 2AFV = 2Biophysical Profile Score = 8/8 | | heart rate = 146 beats/min IMPRESSION: 1. Biophysical Profile Score = 8. | | heart rate = 146 beats/min3. Amniotic fluid index: 13.1 cm. | |The position is vertex. | | | |Placental position: Anterior . | |Placenta previa: No. | | | |Amniotic fluid index: 13.1 cm. | |Previous amniotic fluid index measured 16.4 cm on 03/25/2014. | |The largest single pocket of amniotic fluid measures 6.6 cm. | | | | | |BIOPHYSICAL PROFILE: | |Movement = 2 | |Tone = 2 | |Breathing = 2 | |AFV = 2 | |Biophysical Profile Score = 8/8 | | | | heart rate = 146 beats/min | | | |IMPRESSION: | |1. Biophysical Profile Score = 8/8 | |2. heart rate = 146 beats/min | |3. Amniotic fluid index: 13.1 cm. | | | | | + + US BPP wo Non Stress (03/25/2014 8:49 PM PST) + + | Specimen | + + | | + + + + + | Impressions | Performed At | + + + | 1. Biophysical Profile Score = 8/8 | | + + + + + + | Narrative | Performed At | + + + | NICOLE MCCRACKEN 1990 BIOPHYSICAL PROFILE WO NON STRESS | | | TESTING 03/25/2014 8:49 PM HISTORY: Premature rupture of membranes | | | COMPARISON: 03/23/14 TECHNIQUE: Imaging was performed using a | | | curved array transabdominal transducer. Grayscale, color flow and | | | M-mode techniques were utilized. FINDINGS: The position: | | | Cephalic. Placental position: Fundal. Amniotic fluid index: 16.4 | | | cm. The largest single pocket of amniotic fluid measures 7.0 cm. | | | BIOPHYSICAL PROFILE: Movement = 2 Tone = 2 Breathing = 2 AFV = 2 | | | Biophysical Profile Score = 8/8 heart rate = 139 beats/min | | | | | + + + + + | Procedure Note | + + | Scout Sheets Conversion - 10/07/2018 6:57 AM ANA LILIA MCCRACKEN1992US | | BIOPHYSICAL PROFILE WO NON STRESS TESTING03/25/2014 8:49 PM HISTORY: Premature rupture of | | membranes COMPARISON: 03/23/14 TECHNIQUE: Imaging was performed using a curved array | | transabdominal transducer. Grayscale, color flow and M-mode techniques were utilized. | | FINDINGS:The position: Cephalic.Placental position: Fundal. Amniotic fluid index: | | 16.4 cm.The largest single pocket of amniotic fluid measures 7.0 cm. BIOPHYSICAL | | PROFILE:Movement = 2Tone = 2Breathing = 2AFV = 2Biophysical Profile Score = 8/8 | | heart rate = 139 beats/min IMPRESSION: 1. Biophysical Profile Score = 8/8 | | | |TECHNIQUE: Imaging was performed using a curved array transabdominal transducer. Grayscale , color flow and M-mode techniques were utilized. | | | |FINDINGS: | |The position: Cephalic. | |Placental position: Fundal. | | | |Amniotic fluid index: 16.4 cm. | |The largest single pocket of amniotic fluid measures 7.0 cm. | | | |BIOPHYSICAL PROFILE: | |Movement = 2 | |Tone = 2 | |Breathing = 2 | |AFV = 2 | |Biophysical Profile Score = 8/8 | | | | heart rate = 139 beats/min | | | |IMPRESSION: | |1. Biophysical Profile Score = 8/8 | | | | | + + C-Reactive Protein (03/25/2014 7:04 PM PST) + + + + + + | Component | Value | Ref Range | Performed | Pathologist | | | | | At | Signature | + + + + + + | CRP | 0.9 (H)Comment: Testing | mg/dL | EXTERNAL | | | | performed at [facility];[address] | | LAB | | | | [address];[place] | | | | | | [address] | | | | + + + + + + + + | Specimen | + + | Blood specimen | | (specimen) | + + + +---------+ + + | Performing | Address | City/State/Zipcode | Phone Number | | Organization | | | | + +---------+ + + | EXTERNAL LAB | | | | + +---------+ + + External Lab: AIDE (03/25/2014 5:13 AM PST) + + + + + + | Component | Value | Ref Range | Performed | Pathologist | | | | | At | Signature | + + + + + + | WBC | 14.2 (H)Comment: Testing | 3.8 - 11.0 K/uL | EXTERNAL | | | | performed at [facility], [address] | | LAB | | | | [address], | | | | | | [place] [address] | | | | + + + + + + | RED CELL | 4.04Comment: Testing | 3.70 - 5.10 | EXTERNAL | | | COUNT | performed at [facility], [address] | M/uL | LAB | | | | [address], | | | | | | [place] [address] | | | | + + + + + + | Hgb | 12.8Comment: Testing | 11.3 - 15.5 | EXTERNAL | | | | performed at [facility], [address] | g/dL | LAB | | | | [address], | | | | | | [place] [address] | | | | + + + + + + | Hematocrit, | 37.0Comment: Testing | 34.0 - 46.0 % | EXTERNAL | | | POC | performed at [facility], [address] | | LAB | | | | [address], | | | | | | [place] [address] | | | | + + + + + + | MCV | 91.7Comment: Testing | 80.0 - 100.0 fl | EXTERNAL | | | | performed at [facility], [address] | | LAB | | | | [address], | | | | | | [place] [address] | | | | + + + + + + | MCH | 31.8Comment: Testing | 27.0 - 34.0 pg | EXTERNAL | | | | performed at [facility], [address] | | LAB | | | | [address], | | | | | | [place] [address] | | | | + + + + + + | MCHC | 34.6Comment: Testing | 32.0 - 35.5 | EXTERNAL | | | | performed at [facility], [address] | g/dL | LAB | | | | [address], | | | | | | [place] [address] | | | | + + + + + + | RDW-CV | 42.4Comment: Testing | 37 - 53 fl | EXTERNAL | | | | performed at [facility], [address] | | LAB | | | | [address], | | | | | | [place] [address] | | | | + + + + + + | Platelet | 243Comment: Testing | 150 - 400 K/uL | EXTERNAL | | | Count | performed at [facility], [address] | | LAB | | | Plasma | [address], | | | | | | [place] [address] | | | | + + + + + + | MPV | 9.2Comment: Testing | fl | EXTERNAL | | | | performed at [facility], [address] | | LAB | | | | [address], | | | | | | [place] [address] | | | | + + + + + + | Differentia | AUTOMATEDComment: | | EXTERNAL | | | l Type | Testing performed at | | LAB | | | | [facility], [address] | | | | | | [place] | | | | | | [address] | | | | + + + + + + | % Segmented | 69.4Comment: Testing | % | EXTERNAL | | | | performed at [facility], [address] | | LAB | | | Neutrophils | [address], | | | | | | [place] [address] | | | | + + + + + + | % | 22.2Comment: Testing | % | EXTERNAL | | | Lymphocytes | performed at [facility], [address] | | LAB | | | | [address], | | | | | | [place] [address] | | | | + + + + + + | % Monocytes | 6.7Comment: Testing | % | EXTERNAL | | | | performed at [facility], [address] | | LAB | | | | [address], | | | | | | [place] [address] | | | | + + + + + + | % | 1.4Comment: Testing | % | EXTERNAL | | | Eosinophils | performed at [facility], [address] | | LAB | | | | [address], | | | | | | [place] [address] | | | | + + + + + + | % Basophils | 0.3Comment: Testing | % | EXTERNAL | | | | performed at [facility], [address] | | LAB | | | | [address], | | | | | | [place] [address] | | | | + + + + + + | Absolute | 9.9 (H)Comment: Testing | 1.9 - 7.4 K/uL | EXTERNAL | | | Segmented | performed at [facility], [address] | | LAB | | | Neutrophils | [address], | | | | | | [place] [address] | | | | + + + + + + | Absolute | 3.2Comment: Testing | 1.0 - 3.9 K/uL | EXTERNAL | | | Lymphocytes | performed at [facility], [address] | | LAB | | | | [address], | | | | | | [place] [address] | | | | + + + + + + | Absolute | 0.9 (H)Comment: Testing | 0 - 0.8 K/uL | EXTERNAL | | | Monocytes | performed at [facility], [address] | | LAB | | | | [address], | | | | | | [place] [address] | | | | + + + + + + | Absolute | 0.2Comment: Testing | 0 - 0.5 K/uL | EXTERNAL | | | Eosinophils | performed at [facility], [address] | | LAB | | | | [address], | | | | | | [place] [address] | | | | + + + + + + | Absolute | 0.0Comment: Testing | 0 - 0.1 K/uL | EXTERNAL | | | Basophils | performed at [facility], [address] | | LAB | | | | [address], | | | | | | [place] [address] | | | | + + + + + + + + | Specimen | + + | Blood specimen | | (specimen) | + + + +---------+ + + | Performing | Address | City/State/Zipcode | Phone Number | | Organization | | | | + +---------+ + + | EXTERNAL LAB | | | | + +---------+ + + External Lab: CBC (03/24/2014 4:38 AM PST) + + + + + + | Component | Value | Ref Range | Performed | Pathologist | | | | | At | Signature | + + + + + + | WBC | 15.1 (H)Comment: Testing | 3.8 - 11.0 K/uL | EXTERNAL | | | | performed at [facility], [facility] | | LAB | | | | [address], | | | | | | [place] [address] | | | | + + + + + + | RED CELL | 3.99Comment: Testing | 3.70 - 5.10 | EXTERNAL | | | COUNT | performed at [facility], [address] | M/uL | LAB | | | | [address], | | | | | | [place] [address] | | | | + + + + + + | Hgb | 12.6Comment: Testing | 11.3 - 15.5 | EXTERNAL | | | | performed at [facility], [address] | g/dL | LAB | | | | [address], | | | | | | [place] [address] | | | | + + + + + + | Hematocrit, | 36.8Comment: Testing | 34.0 - 46.0 % | EXTERNAL | | | POC | performed at [facility], [address] | | LAB | | | | [address], | | | | | | [place] [address] | | | | + + + + + + | MCV | 92.3Comment: Testing | 80.0 - 100.0 fl | EXTERNAL | | | | performed at [facility], [address] | | LAB | | | | [address], | | | | | | [place] [address] | | | | + + + + + + | MCH | 31.6Comment: Testing | 27.0 - 34.0 pg | EXTERNAL | | | | performed at [facility], [address] | | LAB | | | | [address], | | | | | | [place] [address] | | | | + + + + + + | MCHC | 34.2Comment: Testing | 32.0 - 35.5 | EXTERNAL | | | | performed at [facility], [address] | g/dL | LAB | | | | [address], | | | | | | [place] [address] | | | | + + + + + + | RDW-CV | 42.4Comment: Testing | 37 - 53 fl | EXTERNAL | | | | performed at [facility], [address] | | LAB | | | | [address], | | | | | | [place] [address] | | | | + + + + + + | Platelet | 243Comment: Testing | 150 - 400 K/uL | EXTERNAL | | | Count | performed at [facility], [address] | | LAB | | | Plasma | [address], | | | | | | [place] [address] | | | | + + + + + + | MPV | 9.4Comment: Testing | fl | EXTERNAL | | | | performed at [facility], [address] | | LAB | | | | [address], | | | | | | [place] [address] | | | | + + + + + + | Differentia | AUTOMATEDComment: | | EXTERNAL | | | l Type | Testing performed at | | LAB | | | | [facility], [address] | | | | | | [place] | | | | | | [address] | | | | + + + + + + | % Segmented | 71.3Comment: Testing | % | EXTERNAL | | | | performed at [facility], [address] | | LAB | | | Neutrophils | [address], | | | | | | [place] [address] | | | | + + + + + + | % | 21.0Comment: Testing | % | EXTERNAL | | | Lymphocytes | performed at [facility], [address] | | LAB | | | | [address], | | | | | | [place] [address] | | | | + + + + + + | % Monocytes | 6.2Comment: Testing | % | EXTERNAL | | | | performed at [facility], [address] | | LAB | | | | [address], | | | | | | [place] [address] | | | | + + + + + + | % | 1.4Comment: Testing | % | EXTERNAL | | | Eosinophils | performed at [facility], [address] | | LAB | | | | [address], | | | | | | [place] [address] | | | | + + + + + + | % Basophils | 0.1Comment: Testing | % | EXTERNAL | | | | performed at [facility], [address] | | LAB | | | | [address], | | | | | | [place] [address] | | | | + + + + + + | Absolute | 10.7 (H)Comment: Testing | 1.9 - 7.4 K/uL | EXTERNAL | | | Segmented | performed at [facility], [address] | | LAB | | | Neutrophils | [address], | | | | | | [place] [address] | | | | + + + + + + | Absolute | 3.2Comment: Testing | 1.0 - 3.9 K/uL | EXTERNAL | | | Lymphocytes | performed at [facility], [address] | | LAB | | | | [address], | | | | | | [place] [address] | | | | + + + + + + | Absolute | 0.9 (H)Comment: Testing | 0 - 0.8 K/uL | EXTERNAL | | | Monocytes | performed at [facility], [address] | | LAB | | | | [address], | | | | | | [place] [address] | | | | + + + + + + | Absolute | 0.2Comment: Testing | 0 - 0.5 K/uL | EXTERNAL | | | Eosinophils | performed at [facility], [address] | | LAB | | | | [address], | | | | | | [place] [address] | | | | + + + + + + | Absolute | 0.0Comment: Testing | 0 - 0.1 K/uL | EXTERNAL | | | Basophils | performed at [facility], [address] | | LAB | | | | [address], | | | | | | [place] [address] | | | | + + + + + + + + | Specimen | + + | Blood specimen | | (specimen) | + + + +---------+ + + | Performing | Address | City/State/Zipcode | Phone Number | | Organization | | | | + +---------+ + + | EXTERNAL LAB | | | | + +---------+ + + US BPP wo Non Stress (03/23/2014 9:27 AM PST) + + | Specimen | + + | | + + + + + | Impressions | Performed At | + + + | The biophysical profile score is 8/8. Electronically | | | signed by Paras Villela MD on 03/23/2014 9:36 AM | | + + + + + + | Narrative | Performed At | + + + | NICOLE CONNER BIOPHYSICAL PROFILE WO NON STRESS TESTING | | | 03/23/2014 9:27 AM History: 23 years. Female. Premature | | | rupture of membranes. Third trimester . Technique: A | | | pulse Doppler duplex transducer with color mapping was utilized, with | | | kaiser scale and doppler each recording in multiple anatomic planes. | | | Transabdominal ultrasound only was performed. Comparison | | | examination: 03/20/14: Score of 8/8. Findings: A single live | | | fetus is visualized in cephalic position with a heart rate of | | | 141 bpm. The placenta is fundal, without low-lying parts. Gross | | | body movement is visualized. The extremities show flexion, | | | indicating muscular tone. diaphragmatic motion is visualized, | | | consistent with breathing. The amniotic fluid index is 10.6 cm, within | | | normal limits, previously measuring 8.2 cm on 03/20/14. The | | | biophysical profile score is 8/8. | | + + + + + | Procedure Note | + + | Sudeep, Rad Conversion - 10/07/2018 6:57 AM PDT NICOLE SANTILLAN BIOPHYSICAL | | PROFILE WO NON STRESS TESTING03/23/2014 9:27 AM History: 23 years. Female. Premature | | rupture of membranes. Third trimester . Technique: A pulse Doppler duplex | | transducer with color mapping was utilized, with kaiser scale and doppler each recording | | in multiple anatomic planes. Transabdominal ultrasound only was performed. Comparison | | examination: 03/20/14: Score of 8/8. Findings: A single live fetus is visualized in | | cephalic position with a heart rate of 141 bpm. The placenta is fundal, without | | low-lying parts. Gross body movement is visualized. The extremities show | | flexion, indicating muscular tone. diaphragmatic motion is visualized, consistent | | with breathing. The amniotic fluid index is 10.6 cm, within normal limits, previously | | measuring 8.2 cm on 03/20/14. The biophysical profile score is 8/8. IMPRESSION: | | The biophysical profile score is 8/8. | |8.2 cm on 03/20/14. The biophysical profile score is 8/8. | | | |IMPRESSION: | |The biophysical profile score is 8/8. | | | | | + + External Lab: CBC (03/23/2014 4:36 AM PST) + + + + + + | Component | Value | Ref Range | Performed | Pathologist | | | | | At | Signature | + + + + + + | WBC | 12.4 (H)Comment: Testing | 3.8 - 11.0 K/uL | EXTERNAL | | | | performed at [facility];[address] | | LAB | | | | [address];[place] | | | | | | [address] | | | | + + + + + + | RED CELL | 3.82Comment: Testing | 3.70 - 5.10 | EXTERNAL | | | COUNT | performed at [facility];[address] | M/uL | LAB | | | | [address];[place] | | | | | | [address] | | | | + + + + + + | Hgb | 12.0Comment: Testing | 11.3 - 15.5 | EXTERNAL | | | | performed at [facility];[address] | g/dL | LAB | | | | [address];[place] | | | | | | [address] | | | | + + + + + + | Hematocrit, | 34.3Comment: Testing | 34.0 - 46.0 % | EXTERNAL | | | POC | performed at [facility];[address] | | LAB | | | | [address];[place] | | | | | | [address] | | | | + + + + + + | MCV | 89.8Comment: Testing | 80.0 - 100.0 fl | EXTERNAL | | | | performed at [facility];[address] | | LAB | | | | [address];[place] | | | | | | [address] | | | | + + + + + + | MCH | 31.5Comment: Testing | 27.0 - 34.0 pg | EXTERNAL | | | | performed at [facility];[address] | | LAB | | | | [address];[place] | | | | | | [address] | | | | + + + + + + | MCHC | 35.1Comment: Testing | 32.0 - 35.5 | EXTERNAL | | | | performed at [facility];[address] | g/dL | LAB | | | | [address];[place] | | | | | | [address] | | | | + + + + + + | RDW-CV | 42.0Comment: Testing | 37 - 53 fl | EXTERNAL | | | | performed at [facility];[address] | | LAB | | | | [address];[place] | | | | | | [address] | | | | + + + + + + | Platelet | 190Comment: Testing | 150 - 400 K/uL | EXTERNAL | | | Count | performed at [facility];[address] | | LAB | | | Plasma | [address];[place] | | | | | | [address] | | | | + + + + + + | MPV | 8.7Comment: Testing | fl | EXTERNAL | | | | performed at [facility];[address] | | LAB | | | | [address];[place] | | | | | | [address] | | | | + + + + + + | Differentia | AUTOMATEDComment: | | EXTERNAL | | | l Type | Testing performed at | | LAB | | | | [facility];[address];[place] [address] | | | | + + + + + + | % Segmented | 67.2Comment: Testing | % | EXTERNAL | | | | performed at [facility];[address] | | LAB | | | Neutrophils | [address];[place] | | | | | | [address] | | | | + + + + + + | % | 23.6Comment: Testing | % | EXTERNAL | | | Lymphocytes | performed at [facility];[address] | | LAB | | | | [address];[place] | | | | | | [address] | | | | + + + + + + | % Monocytes | 7.8Comment: Testing | % | EXTERNAL | | | | performed at [facility];[address] | | LAB | | | | [address];[place] | | | | | | [address] | | | | + + + + + + | % | 1.1Comment: Testing | % | EXTERNAL | | | Eosinophils | performed at [facility];[address] | | LAB | | | | [address];[place] | | | | | | [address] | | | | + + + + + + | % Basophils | 0.3Comment: Testing | % | EXTERNAL | | | | performed at [facility];[address] | | LAB | | | | [address];[place] | | | | | | [address] | | | | + + + + + + | Absolute | 8.3 (H)Comment: Testing | 1.9 - 7.4 K/uL | EXTERNAL | | | Segmented | performed at [facility];[address] | | LAB | | | Neutrophils | [address];[place] | | | | | | [address] | | | | + + + + + + | Absolute | 2.9Comment: Testing | 1.0 - 3.9 K/uL | EXTERNAL | | | Lymphocytes | performed at [facility];[address] | | LAB | | | | [address];[place] | | | | | | [address] | | | | + + + + + + | Absolute | 1.0 (H)Comment: Testing | 0 - 0.8 K/uL | EXTERNAL | | | Monocytes | performed at [facility];[address] | | LAB | | | | [address];[place] | | | | | | [address] | | | | + + + + + + | Absolute | 0.1Comment: Testing | 0 - 0.5 K/uL | EXTERNAL | | | Eosinophils | performed at [facility];[address] | | LAB | | | | [address];[place] | | | | | | [address] | | | | + + + + + + | Absolute | 0.0Comment: Testing | 0 - 0.1 K/uL | EXTERNAL | | | Basophils | performed at [facility];[address] | | LAB | | | [address];[place], [place] | | | | | | [address] | | | | + + + + + + + + | Specimen | + + | Blood specimen | | (specimen) | + + + +---------+ + + | Performing | Address | City/State/Zipcode | Phone Number | | Organization | | | | + +---------+ + + | EXTERNAL LAB | | | | + +---------+ + + External Lab: AIDE (03/22/2014 4:51 AM PST) + + + + + + | Component | Value | Ref Range | Performed | Pathologist | | | | | At | Signature | + + + + + + | WBC | 12.0 (H)Comment: Testing | 3.8 - 11.0 K/uL | EXTERNAL | | | | performed at [facility], [address] | | LAB | | | | [address], | | | | | | [place] [address] | | | | + + + + + + | RED CELL | 3.57 (L)Comment: Testing | 3.70 - 5.10 | EXTERNAL | | | COUNT | performed at [facility], [address] | M/uL | LAB | | | | [address], | | | | | | [place] [address] | | | | + + + + + + | Hgb | 11.2 (L)Comment: Testing | 11.3 - 15.5 | EXTERNAL | | | | performed at [facility], [address] | g/dL | LAB | | | | [address], | | | | | | [place] [address] | | | | + + + + + + | Hematocrit, | 32.8 (L)Comment: Testing | 34.0 - 46.0 % | EXTERNAL | | | POC | performed at [facility], [address] | | LAB | | | | [address], | | | | | | [place] [address] | | | | + + + + + + | MCV | 92.0Comment: Testing | 80.0 - 100.0 fl | EXTERNAL | | | | performed at [facility], [address] | | LAB | | | | [address], | | | | | | [place] [address] | | | | + + + + + + | MCH | 31.3Comment: Testing | 27.0 - 34.0 pg | EXTERNAL | | | | performed at [facility], [address] | | LAB | | | | [address], | | | | | | [place] [address] | | | | + + + + + + | MCHC | 34.0Comment: Testing | 32.0 - 35.5 | EXTERNAL | | | | performed at [facility], [address] | g/dL | LAB | | | | [address], | | | | | | [place] [address] | | | | + + + + + + | RDW-CV | 43.8Comment: Testing | 37 - 53 fl | EXTERNAL | | | | performed at [facility], [address] | | LAB | | | | [address], | | | | | | [place] [address] | | | | + + + + + + | Platelet | 180Comment: Testing | 150 - 400 K/uL | EXTERNAL | | | Count | performed at [facility], [address] | | LAB | | | Plasma | [address], | | | | | | [place], [place] [address] | | | | + + + + + + | MPV | 9.3Comment: Testing | fl | EXTERNAL | | | | performed at [facility], [address] | | LAB | | | | [address], | | | | | | [place] [address] | | | | + + + + + + | Differentia | MANUALComment: Testing | | EXTERNAL | | | l Type | performed at [facility], [address] | | LAB | | | | [address], | | | | | | [place] [address] | | | | + + + + + + | Segmented | 63Comment: Testing | % | EXTERNAL | | | Neutrophils | performed at [facility], [address] | | LAB | | | Manual | [address], | | | | | | [place] [address] | | | | + + + + + + | % Bands | 8Comment: Testing | % | EXTERNAL | | | | performed at [facility], [address] | | LAB | | | | [address], | | | | | | [place] [address] | | | | + + + + + + | Lymphocytes | 21Comment: Testing | % | EXTERNAL | | | Manual | performed at [facility], [address] | | LAB | | | | [address], | | | | | | [place] [address] | | | | + + + + + + | Monocytes | 8Comment: Testing | % | EXTERNAL | | | Manual | performed at [facility], [address] | | LAB | | | | [address], | | | | | | [place] [address] | | | | + + + + + + | Absolute | 7.5 (H)Comment: Testing | 1.9 - 7.4 K/uL | EXTERNAL | | | Neutrophils | performed at [facility], [address] | | LAB | | | | [address], | | | | | | [place] [address] | | | | + + + + + + | Bands | 1.0 (H)Comment: Testing | 0 - 0.2 K/uL | EXTERNAL | | | Manual | performed at [facility], [address] | | LAB | | | | [address], | | | | | | [place] [address] | | | | + + + + + + | Absolute | 2.5Comment: Testing | 1.0 - 3.9 K/uL | EXTERNAL | | | Lymphocytes | performed at [facility], [address] | | LAB | | | | [address], | | | | | | [place] [address] | | | | + + + + + + | Absolute | 1.0 (H)Comment: Testing | 0 - 0.8 K/uL | EXTERNAL | | | Monocytes | performed at [facility], [address] | | LAB | | | | [facility], | | | | | | [place] [address] | | | | + + + + + + | RBC | NORMAL PLT MORPHComment: | | EXTERNAL | | | Morphology | NORMAL RBC MORPHTesting | | LAB | | | | performed at [facility], [address] | | | | | [address] [facility], | | | | | | [place] [address] | | | | + + + + + + + + | Specimen | + + | Blood specimen | | (specimen) | + + + +---------+ + + | Performing | Address | City/State/Zipcode | Phone Number | | Organization | | | | + +---------+ + + | EXTERNAL LAB | | | | + +---------+ + + External Lab: CBC (03/21/2014 5:17 AM PST) + + + + + + | Component | Value | Ref Range | Performed | Pathologist | | | | | At | Signature | + + + + + + | WBC | 14.0 (H)Comment: Testing | 3.8 - 11.0 K/uL | EXTERNAL | | | | performed at [facility], [address] | | LAB | | | | [address], | | | | | | [place] [address] | | | | + + + + + + | RED CELL | 3.55 (L)Comment: Testing | 3.70 - 5.10 | EXTERNAL | | | COUNT | performed at [facility], [address] | M/uL | LAB | | | | [address], | | | | | | [place] [address] | | | | + + + + + + | Hgb | 11.2 (L)Comment: Testing | 11.3 - 15.5 | EXTERNAL | | | | performed at [facility], [address] | g/dL | LAB | | | | [address], | | | | | | [place] [address] | | | | + + + + + + | Hematocrit, | 32.5 (L)Comment: Testing | 34.0 - 46.0 % | EXTERNAL | | | POC | performed at [facility], [address] | | LAB | | | | [address], | | | | | | [place] [address] | | | | + + + + + + | MCV | 91.5Comment: Testing | 80.0 - 100.0 fl | EXTERNAL | | | | performed at [facility], [address] | | LAB | | | | [address], | | | | | | [place] [address] | | | | + + + + + + | MCH | 31.5Comment: Testing | 27.0 - 34.0 pg | EXTERNAL | | | | performed at [facility], [address] | | LAB | | | | [address], | | | | | | [place] [address] | | | | + + + + + + | MCHC | 34.4Comment: Testing | 32.0 - 35.5 | EXTERNAL | | | | performed at [facility], [address] | g/dL | LAB | | | | [address], | | | | | | [place] [address] | | | | + + + + + + | RDW-CV | 42.0Comment: Testing | 37 - 53 fl | EXTERNAL | | | | performed at [facility], [address] | | LAB | | | | [address], | | | | | | [place] [address] | | | | + + + + + + | Platelet | 178Comment: Testing | 150 - 400 K/uL | EXTERNAL | | | Count | performed at [facility], [address] | | LAB | | | Plasma | [address], | | | | | | [place] [address] | | | | + + + + + + | MPV | 9.8Comment: Testing | fl | EXTERNAL | | | | performed at [facility], [address] | | LAB | | | | [address], | | | | | | [place] [address] | | | | + + + + + + | Differentia | MANUALComment: Testing | | EXTERNAL | | | l Type | performed at [facility], [address] | | LAB | | | | [address], | | | | | | [place] [address] | | | | + + + + + + | Segmented | 88Comment: Testing | % | EXTERNAL | | | Neutrophils | performed at [facility], [address] | | LAB | | | Manual | [address], | | | | | | [place] [address] | | | | + + + + + + | % Bands | 2Comment: Testing | % | EXTERNAL | | | | performed at [facility], [address] | | LAB | | | | [address], | | | | | | [place] [address] | | | | + + + + + + | Lymphocytes | 6Comment: Testing | % | EXTERNAL | | | Manual | performed at [facility], [address] | | LAB | | | | [address], | | | | | | [place] [address] | | | | + + + + + + | Monocytes | 4Comment: Testing | % | EXTERNAL | | | Manual | performed at [facility], [address] | | LAB | | | | [address], | | | | | | [place] [address] | | | | + + + + + + | Absolute | 12.3 (H)Comment: Testing | 1.9 - 7.4 K/uL | EXTERNAL | | | Neutrophils | performed at [facility], [address] | | LAB | | | | [address], | | | | | | [place] [address] | | | | + + + + + + | Bands | 0.3 (H)Comment: Testing | 0 - 0.2 K/uL | EXTERNAL | | | Manual | performed at [facility], [address] | | LAB | | | | [address], | | | | | | [place] [address] | | | | + + + + + + | Absolute | 0.8 (L)Comment: Testing | 1.0 - 3.9 K/uL | EXTERNAL | | | Lymphocytes | performed at [facility], [address] | | LAB | | | | [address], | | | | | | [place] [address] | | | | + + + + + + | Absolute | 0.6Comment: Testing | 0 - 0.8 K/uL | EXTERNAL | | | Monocytes | performed at [facility], [address] | | LAB | | | | [address], | | | | | | [place] [address] | | | | + + + + + + | RBC | NORMAL RBC MORPHComment: | | EXTERNAL | | | Morphology | NORMAL PLT MORPHTesting | | LAB | | | | performed at [facility], [address] | | | | | [address], | | | | | | [place] [address] | | | | + + + + + + + + | Specimen | + + | Blood specimen | | (specimen) | + + + +---------+ + + | Performing | Address | City/State/Zipcode | Phone Number | | Organization | | | | + +---------+ + + | EXTERNAL LAB | | | | + +---------+ + + US BPP wo Non Stress (03/20/2014 8:51 AM PST) + + | Specimen | + + | | + + + + + | Impressions | Performed At | + + + | The biophysical profile score is 8/8. Decreasing amniotic | | | fluid volume as compared with 03/19/13. | | + + + + + + | Narrative | Performed At | + + + | NICOLE MCCRACKEN US BIOPHYSICAL PROFILE WO NON STRESS TESTING | | | 03/20/2014 7:56 AM History: 23 years. Female. Premature | | | rupture of membranes. Technique: A pulse Doppler duplex transducer | | | with color mapping was utilized, with kaiser scale and doppler each | | | recording in multiple anatomic planes. Transabdominal ultrasound only | | | was performed. Findings: A single live fetus is visualized in | | | cephalic position. The heart rate is 127 bpm. The placenta is | | | fundal. The cervix is not clearly identified. Gross body | | | movement is visualized. The extremities show flexion, indicating | | | muscular tone. diaphragmatic motion is visualized, consistent | | | with breathing. The amniotic fluid index is 8.2 cm, within normal | | | limits. The biophysical profile score is 8/8. Amniotic | | | fluid index on 03/19/14 was 12.7 cm. | | + + + + + | Procedure Note | + + | Sudeep, Rad Conversion - 10/07/2018 6:57 AM PDT NICOLE SANTILLAN BIOPHYSICAL | | PROFILE WO NON STRESS TESTING03/20/2014 7:56 AM History: 23 years. Female. Premature | | rupture of membranes. Technique: A pulse Doppler duplex transducer with color mapping | | was utilized, with kaiser scale and doppler each recording in multiple anatomic planes. | | Transabdominal ultrasound only was performed. Findings: A single live fetus is | | visualized in cephalic position. The heart rate is 127 bpm. The placenta is | | fundal. The cervix is not clearly identified. Gross body movement is visualized. | | The extremities show flexion, indicating muscular tone. diaphragmatic motion | | is visualized, consistent with breathing. The amniotic fluid index is 8.2 cm, within | | normal limits. The biophysical profile score is 8/8. Amniotic fluid index on | | 03/19/14 was 12.7 cm. IMPRESSION: The biophysical profile score is 8/8.Decreasing | | amniotic fluid volume as compared with 03/19/13. | |Amniotic fluid index on 03/19/14 was 12.7 cm. | | | |IMPRESSION: | |The biophysical profile score is 8/8. | |Decreasing amniotic fluid volume as compared with 03/19/13. | | | | | + + External Lab: AIDE (03/20/2014 4:31 AM PST) + + + + + + | Component | Value | Ref Range | Performed | Pathologist | | | | | At | Signature | + + + + + + | WBC | 13.0 (H)Comment: Testing | 3.8 - 11.0 K/uL | EXTERNAL | | | | performed at [facility], [facility] | | LAB | | | | [address], | | | | | | [place] [address] | | | | + + + + + + | RED CELL | 3.83Comment: Testing | 3.70 - 5.10 | EXTERNAL | | | COUNT | performed at [facility], [address] | M/uL | LAB | | | | [address], | | | | | | [place], [place] [address] | | | | + + + + + + | Hgb | 12.2Comment: Testing | 11.3 - 15.5 | EXTERNAL | | | | performed at [facility], [address] | g/dL | LAB | | | | [address], | | | | | | [place] [address] | | | | + + + + + + | Hematocrit, | 34.8Comment: Testing | 34.0 - 46.0 % | EXTERNAL | | | POC | performed at [facility], [address] | | LAB | | | | [address], | | | | | | [place] [address] | | | | + + + + + + | MCV | 90.9Comment: Testing | 80.0 - 100.0 fl | EXTERNAL | | | | performed at [facility], [address] | | LAB | | | | [address], | | | | | | [place] [address] | | | | + + + + + + | MCH | 31.9Comment: Testing | 27.0 - 34.0 pg | EXTERNAL | | | | performed at [facility], [address] | | LAB | | | | [address], | | | | | | [place] [address] | | | | + + + + + + | MCHC | 35.0Comment: Testing | 32.0 - 35.5 | EXTERNAL | | | | performed at [facility], [address] | g/dL | LAB | | | | [address], | | | | | | [place] [address] | | | | + + + + + + | RDW-CV | 41.1Comment: Testing | 37 - 53 fl | EXTERNAL | | | | performed at [facility], [address] | | LAB | | | | [address], | | | | | | [place] [address] | | | | + + + + + + | Platelet | 206Comment: Testing | 150 - 400 K/uL | EXTERNAL | | | Count | performed at [facility], [address] | | LAB | | | Plasma | [address], | | | | | | [place] [address] | | | | + + + + + + | MPV | 9.8Comment: Testing | fl | EXTERNAL | | | | performed at [facility], [address] | | LAB | | | | [address], | | | | | | [place] [address] | | | | + + + + + + | Differentia | MANUALComment: Testing | | EXTERNAL | | | l Type | performed at [facility], [address] | | LAB | | | | [address], | | | | | | [place] [address] | | | | + + + + + + | Segmented | 85Comment: Testing | % | EXTERNAL | | | Neutrophils | performed at [facility], [address] | | LAB | | | Manual | [address], | | | | | | [place], [place] [address] | | | | + + + + + + | % Bands | 4Comment: Testing | % | EXTERNAL | | | | performed at [facility], [address] | | LAB | | | | [address], | | | | | | [place] [address] | | | | + + + + + + | Lymphocytes | 7Comment: Testing | % | EXTERNAL | | | Manual | performed at [facility], [address] | | LAB | | | | [address], | | | | | | [place] [address] | | | | + + + + + + | Monocytes | 4Comment: Testing | % | EXTERNAL | | | Manual | performed at [facility], [address] | | LAB | | | | [address], | | | | | | [place] [address] | | | | + + + + + + | Absolute | 11.1 (H)Comment: Testing | 1.9 - 7.4 K/uL | EXTERNAL | | | Neutrophils | performed at [facility], [address] | | LAB | | | | [address], | | | | | | [place] [address] | | | | + + + + + + | Bands | 0.5 (H)Comment: Testing | 0 - 0.2 K/uL | EXTERNAL | | | Manual | performed at [facility], [address] | | LAB | | | | [address], | | | | | | [place] [address] | | | | + + + + + + | Absolute | 0.9 (L)Comment: Testing | 1.0 - 3.9 K/uL | EXTERNAL | | | Lymphocytes | performed at [facility], [address] | | LAB | | | [address], | | | | | | [place] [address] | | | | + + + + + + | Absolute | 0.5Comment: Testing | 0 - 0.8 K/uL | EXTERNAL | | | Monocytes | performed at [facility], [address] | | LAB | | | | [address], | | | | | | [place] [address] | | | | + + + + + + | RBC | RBC AND PLT MORPHOLOGY | | EXTERNAL | | | Morphology | APPEAR NORMALComment: | | LAB | | | | Testing performed at | | | | | | [facility], [address] | | | | | | [address], [place] | | | | | | [address] | | | | + + + + + + + + | Specimen | + + | Blood specimen | | (specimen) | + + + +---------+ + + | Performing | Address | City/State/Zipcode | Phone Number | | Organization | | | | + +---------+ + + | EXTERNAL LAB | | | | + +---------+ + + Comprehensive Metabolic Panel (03/20/2014 4:31 AM PST) + + + + + + | Component | Value | Ref Range | Performed | Pathologist | | | | | At | Signature | + + + + + + | Na | 131 (L)Comment: Testing | 135 - 143 | EXTERNAL | | | | performed at [facility], [address] | mmol/L | LAB | | | | [address], | | | | | | [place] [address] | | | | + + + + + + | K | 3.9Comment: Testing | 3.5 - 4.9 | EXTERNAL | | | | performed at [facility], [address] | mmol/L | LAB | | | | [address], | | | | | | [place] [address] | | | | + + + + + + | Cl | 105Comment: Testing | 99 - 109 mmol/L | EXTERNAL | | | | performed at [facility], [address] | | LAB | | | | [address], | | | | | | [place] [address] | | | | + + + + + + | CO2 | 22 (L)Comment: Testing | 23 - 32 mmol/L | EXTERNAL | | | | performed at [facility], [address] | | LAB | | | | [address], | | | | | | [place] [address] | | | | + + + + + + | Anion Gap | 8Comment: Testing | 5 - 20 mmol/L | EXTERNAL | | | | performed at [facility], [address] | | LAB | | | | [address], | | | | | | [place] [address] | | | | + + + + + + | Glucose, | 151 (H)Comment: Testing | 65 - 99 mg/dL | EXTERNAL | | | Fasting | performed at [facility], [address] | | LAB | | | | [address], | | | | | | [place] [address] | | | | + + + + + + | BUN | 7 (L)Comment: Testing | 8 - 25 mg/dL | EXTERNAL | | | | performed at [facility], [address] | | LAB | | | | [address], | | | | | | [place] [address] | | | | + + + + + + | Creatinine | 0.43 (L)Comment: Testing | 0.50 - 1.00 | EXTERNAL | | | | performed at [facility], [address] | mg/dL | LAB | | | | [address], | | | | | | [place] [address] | | | | + + + + + + | BUN/Creatin | 16Comment: Testing | | EXTERNAL | | | ine Ratio | performed at [facility], [address] | | LAB | | | | [address], | | | | | | [place] [address] | | | | + + + + + + | Calcium | 7.5 (L)Comment: NOTE NEW | 8.5 - 10.5 | EXTERNAL | | | | REFERENCE RANGETesting | mg/dL | LAB | | | | performed at [facility], [address] | | | | | | [address], | | | | | | [place] [address] | | | | + + + + + + | Protein, | 5.8 (L)Comment: Testing | 6.3 - 8.2 g/dL | EXTERNAL | | | Total | performed at [facility], [address] | | LAB | | | | [address], | | | | | | [place] [address] | | | | + + + + + + | Albumin | 2.9 (L)Comment: Testing | 3.6 - 5.0 g/dL | EXTERNAL | | | | performed at [facility], [address] | | LAB | | | | [address], | | | | | | [place] [address] | | | | + + + + + + | Globulin | 2.9Comment: Testing | 1.3 - 4.9 g/dL | EXTERNAL | | | | performed at [facility], [address] | | LAB | | | | [address], | | | | | | [place] [address] | | | | + + + + + + | A/G Ratio | 1.0Comment: Testing | 1.0 - 2.4 | EXTERNAL | | | | performed at [facility], [address] | | LAB | | | | [address], | | | | | | [place] [address] | | | | + + + + + + | Bilirubin | 0.3Comment: Testing | 0.1 - 1.5 mg/dL | EXTERNAL | | | Total | performed at [facility], [address] | | LAB | | | | [address], | | | | | | [place] [address] | | | | + + + + + + | ALP, | 93Comment: Testing | 35 - 115 U/L | EXTERNAL | | | External | performed at [facility], [address] | | LAB | | | | [address], | | | | | | [place] [address] | | | | + + + + + + | AST | 18Comment: Testing | 10 - 45 U/L | EXTERNAL | | | | performed at [facility], [address] | | LAB | | | | [address], | | | | | | [place] [address] | | | | + + + + + + | ALT | 10Comment: Testing | 10 - 65 U/L | EXTERNAL | | | | performed at [facility], [address] | | LAB | | | | [address], | | | | | | [place] [address] | | | | + + + + + + | Estimated | >60Comment: GFR <60: | mL/min/1.73m2 | EXTERNAL | | | GFR | CHRONIC KIDNEY DISEASE, | | LAB | | | | IF FOUND OVER A 3 MONTH | | | | | | PERIOD.GFR <15: KIDNEY | | | | | | FAILURE.FOR | | | | | | AMERICANS, MULTIPLY THE | | | | | | CALCULATED GFR BY | | | | | | 1.210.Testing performed | | | | | | at [facility], [address] | | | | | | [address] [facility], | | | | | | [place] [address] | | | | + + + + + + + + | Specimen | + + | Blood specimen | | (specimen) | + + + +---------+ + + | Performing | Address | City/State/Zipcode | Phone Number | | Organization | | | | + +---------+ + + | EXTERNAL LAB | | | | + +---------+ + + Strep B DNA probe, NAAT (03/19/2014 8:41 PM PST) + + + + + + | Component | Value | Ref Range | Performed | Pathologist | | | | | At | Signature | + + + + + + | Group B | NEGATIVE for GBS | | EXTERNAL | | | Strep | colonization by | | LAB | | | | PCRComment: Testing | | | | | | performed at [facility];[id number] | | | | | | [address];[place] | | | | | | [address] | | | | + + + + + + + + | Specimen | + + | Soft tissue sample | | (specimen) | + + + +---------+ + + | Performing | Address | City/State/Zipcode | Phone Number | | Organization | | | | + +---------+ + + | EXTERNAL LAB | | | | + +---------+ + + Strep B screen (03/19/2014 8:41 PM PST) + + | Specimen | + + | | + + + + + | Narrative | Performed At | + + + | Specimen Description VAGINAL/RECTAL SWAB | EXTERNAL LAB | | CULTURE NO GROUP B STREP | | | ISOLATED Testing | | | performed at [facility], [address] [facility] [place] [address] | | + + + + +---------+ + + | Performing | Address | City/State/Zipcode | Phone Number | | Organization | | | | + +---------+ + + | EXTERNAL LAB | | | | + +---------+ + + US OB Limited 1 or More Fetus (03/19/2014 7:55 PM PST) + + | Specimen | + + | | + + + + + | Impressions | Performed At | + + + | 1. Single live intrauterine gestation in cephalic orientation. 2. | | | Cervix incompletely visualized, appears closed, 3.6 cm in length. | | | 3. Fundal grade 1 placenta. 4. CHARO 12.7 cm. 5. Composite | | | ultrasound age 32 weeks 4 days plus/-2 weeks 2 days, with ultrasound | | | CARL 05/10/14, compared with LMP CARL 05/13/14. | | + + + + + + | Narrative | Performed At | + + + | HISTORY: Premature rupture membranes. COMPARISON: None. | | | TECHNIQUE: 4 MHz curvilinear sonographic grayscale, M-mode, color | | | flow evaluation of the pelvis. FINDINGS: Single live intrauterine | | | gestation in cephalic orientation. Cervix incompletely visualized, | | | approximately 3.6 cm. Placenta is fundal, grade 1. Unable to obtain | | | tip to os image. Tip of the placenta is not low. CHARO 12.7 cm. | | | biometry: BPD 8.59 cm, 34 weeks 4 days. HC 29.47 cm, 32 weeks | | | 4 days. AC 27.08 cm, 31 weeks 1 day. FL 6.12 cm, 31 weeks 5 days. | | | EFW 1832 g plus/-274.9 g (4 lbs. 1 oz. Plus/-10 ounces). EFW 40.4%. | | | CI 85.7 (70.00-86.00). FL/BPD 71.21 (71.0-87.0). HC/AC 1.09 | | | (0.96-1.12). FL/AC 22.58 (20.00-24.00). FL/HC 20.75 (19.56-21.41 | | + + + + + | Procedure Note | + + | Scout Sheets Conversion - 10/07/2018 6:57 AM PDT HISTORY:Premature rupture membranes. | | COMPARISON:None. TECHNIQUE:4 MHz curvilinear sonographic grayscale, M-mode, color flow | | evaluation of the pelvis. FINDINGS:Single live intrauterine gestation in cephalic | | orientation. Cervix incompletely visualized, approximately 3.6 cm. Placenta is fundal, | | grade 1. Unable to obtain tip to os image. Tip of the placenta is not low. CHARO 12.7 cm. | | biometry:BPD 8.59 cm, 34 weeks 4 days.HC 29.47 cm, 32 weeks 4 days.AC 27.08 cm, 31 | | weeks 1 day.FL 6.12 cm, 31 weeks 5 days. EFW 1832 g plus/-274.9 g (4 lbs. 1 oz. | | Plus/-10 ounces).EFW 40.4%. CI 85.7 (70.00-86.00).FL/BPD 71.21 (71.0-87.0).HC/AC 1.09 | | (0.96-1.12).FL/AC 22.58 (20.00-24.00).FL/HC 20.75 (19.56-21.41 IMPRESSION: 1. Single | | live intrauterine gestation in cephalic orientation.2. Cervix incompletely visualized, | | appears closed, 3.6 cm in length.3. Fundal grade 1 placenta.4. CHARO 12.7 cm.5. | | Composite ultrasound age 32 weeks 4 days plus/-2 weeks 2 days, with ultrasound CARL | | 05/10/14, compared with LMP CARL 05/13/14. Electronically signed by Fermin Harper MD on | | 03/19/2014 8:31 PM | |HC 29.47 cm, 32 weeks 4 days. | |AC 27.08 cm, 31 weeks 1 day. | |FL 6.12 cm, 31 weeks 5 days. | | | |EFW 1832 g plus/-274.9 g (4 lbs. 1 oz. Plus/-10 ounces). | |EFW 40.4%. | | | |CI 85.7 (70.00-86.00). | |FL/BPD 71.21 (71.0-87.0). | |HC/AC 1.09 (0.96-1.12). | |FL/AC 22.58 (20.00-24.00). | |FL/HC 20.75 (19.56-21.41 | | | |IMPRESSION: | |1. Single live intrauterine gestation in cephalic orientation. | |2. Cervix incompletely visualized, appears closed, 3.6 cm in length. | |3. Fundal grade 1 placenta. | |4. CHARO 12.7 cm. | |5. Composite ultrasound age 32 weeks 4 days plus/-2 weeks 2 days, with ultrasound CARL 05/10, compared with LMP CARL 05/13/14. | | | | | + + Obstetrics Panel (09/26/2013 12:00 AM PDT) + + + + + + | Component | Value | Ref Range | Performed | Pathologist | | | | | At | Signature | + + + + + + | HEP B | Negative | | EXTERNAL | | | SURFACE | | | LAB | | | ANTIBODY | | | | | + + + + + + | RUBEOLA IGG | Immune | | EXTERNAL | | | (REF) | | | LAB | | + + + + + + | Treponema | Non-Reactive | | EXTERNAL | | | Pallidum Ab | | | LAB | | | Total | | | | | + + + + + + + + | Specimen | + + | Blood specimen | | (specimen) | + + + +---------+ + + | Performing | Address | City/State/Zipcode | Phone Number | | Organization | | | | + +---------+ + + | EXTERNAL LAB | | | | + +---------+ + + HIV 1 and 2 Antibody Differentiation (09/26/2013 12:00 AM PDT) + + + + + + | Component | Value | Ref Range | Performed | Pathologist | | | | | At | Signature | + + + + + + | HIV 1 and 2 | Non-Reactive | | EXTERNAL | | | Ab | | | LAB | | + + + + + + + + | Specimen | + + | Blood specimen | | (specimen) | + + + +---------+ + + | Performing | Address | City/State/Zipcode | Phone Number | | Organization | | | | + +---------+ + + | EXTERNAL LAB | | | | + +---------+ + + documented in this encounter Visit Diagnoses + + | Diagnosis | + + | premature rupture of membranes in third trimester Premature rupture of | | membranes in , antepartum | + + documented in this encounter
--- OUTSIDE RECORDS SUMMARY | ~2019-01-23 | XMS | Encounter Summary ---
Demographics + + + | Address | [address] | | | [place] [address] | + + + | Home Phone | | + + + | Preferred Language | Unknown | + + + | Marital Status | Single | + + + | Mormon Affiliation | Unknown | + + + | Race | Unknown | + + + | Ethnic Group | Not or | + + + Author + + + | Author | [facility] | + + + | Organization | [facility] | + + + | Address | Unknown | + + + | Phone | Unavailable | + + + Support + + +---------+ + | Name | Relationship | Address | Phone | + + +---------+ + | Carlita Nawaf | ECON | Unknown | | + + +---------+ + Care Team Providers + +------+ + | Care Exercise Physiologist Name | Role | Phone | + +------+ + | Sally Morales DO | PCP | | + +------+ + Reason for Visit + + + | Reason | Comments | + + + | Hearing loss | | + + + Audiology Services (Routine) +--------+--------+ + + + + | Status | Reason | Specialty | Diagnoses / | Referred By | Referred To | | | | | Procedures | Contact | Contact | +--------+--------+ + + + + | Closed | | Residential Care Officer | | Junie | Kiko | | | | | | Marina Pastrana | Audiology [facility] | | | | | | MD [address] | [address] | | | | | | [address] | [address] | | | | | | [address] | [address] | | | | | | Rd | Mailcode: | | | | | | [place], [place] | [address] | | | | | | [address] | Physician's | | | | | | Phone: | [facility] | | | | | | [phone] | [place], [place] | | | | | | Fax: | [address] | | | | | | [phone] | Phone: | | | | | | | [phone] | | | | | | | Fax: | | | | | | | [phone] | +--------+--------+ + + + + Encounter Details +--------+---------+ + + + | Date | Type | Department | Care Team | Description | +--------+---------+ + + + | 07/10/ | Office | Otolaryngology | Wesley Phelps, | Conductive Hearing | | 2007 | Visit | Audiology Services | [address] | Loss, Unilateral | | | | at [facility] [address] | [address] | (Primary Dx) | | | | [address] | Rd [place], [place] | | | | | Mailcode: [address] | [address] | | | | | Physician's [place] | | | | | | [place], [place] | | | | | | [address] | | | | | | [phone] | | | +--------+---------+ + + + Social History + +-------+ [...] + + documented as of this encounter Progress Notes Rosalba Sampson CCC-A - 07/11/2007 2:41 PM Simon Mccracken is a 16 y.o. female who w as seen today for an audiologic evaluation in conjunction with otology clinic, please see Dr Fortino Gray's note and attached audiogram for complete patient results. docuarlen in t his encounter Plan of Treatment + + +--------+ + + | Name | Type | Priori | Associated Diagnoses | Order Schedule | | | | ty | | | + + +--------+ + + | AR COMPREHENSIVE | Procedures | Routin | Conductive Hearing | Ordered: 07/11/2007 | | HEARING TEST | | e | Loss, Unilateral | | + + +--------+ + + | AR TYMPANOMETRY | Procedures | Routin | Conductive Hearing | Ordered: 07/11/2007 | | | | e | Loss, Unilateral | | + + +--------+ + + documented as of this encounter Visit Diagnoses + + | Diagnosis | + + | Conductive hearing loss, unilateral - Primary | + + documented in this encounter"
--- OUTSIDE RECORDS SUMMARY | ~2019-01-23 | XMS | Encounter Summary ---
Demographics + + + | Address | [address] | | | [place] [address] | + + + | Home Phone | | + + + | Preferred Language | Unknown | + + + | Marital Status | Single | + + + | Anglican Affiliation | Unknown | + + + | Race | Unknown | + + + | Ethnic Group | Not or | + + + Author + + + | Author | [facility] | + + + | Organization | [facility] | + + + | Address | Unknown | + + + | Phone | Unavailable | + + + Support + + +---------+ + | Name | Relationship | Address | Phone | + + +---------+ + | Carlita Nawaf | ECON | Unknown | | + + +---------+ + Care Team Providers + +------+ + | Care Fuel House Attendant Name | Role | Phone | + +------+ + | Sally Morales DO | PCP | | + +------+ + Reason for Visit + + + | Reason | Comments | + + + | Lab findings, | | | teaching, guidance, | | | and counseling | | + + + Encounter Details +--------+ + + + + | Date | Type | Department | Care Team | Description | +--------+ + + + + | 06/09/ | Documentati | Pediatric | Carey Lucia, | Lab findings, | | 2008 | on | Endocrinology at | MD [address] [facility] | teaching, guidance, | | | | [address] | [address] | and counseling | | | | [facility] | [place], [place] | | | | | [address] | [address] | | | | | [address] Mailcode: | [phone] | | | | | [facility] | | | | | | [place], [place] | | | | | | [address] | | | | | | [phone] | | | +--------+ + + + [...] + + documented as of this encounter Plan of Treatment Not on filedocumented as of this encounter Visit Diagnoses Not on filedocumented in this encounter"
--- OUTSIDE RECORDS SUMMARY | ~2019-01-23 | XMS | Clinical Summary ---
Demographics + + + | Address | [address] | | | [place] [address] | + + + | Home Phone | | + + + | Preferred Language | Unknown | + + + | Marital Status | Single | + + + | Protestant Affiliation | 1077 | + + + | Race | Unknown | + + + | Ethnic Group | Unknown | + + + Author + + + | Author | [facility] | | | and [place] | + + + | Organization | [facility] | | | and [...] Team Providers + +------+ + | Care Senior User Experience Architect Name | Role | Phone | + +------+ + | Pascale Alan | PCP | | + +------+ + Allergies Not on File Medications Not on file Active Problems Not on file Immunizations + + + + | Name | Administration Dates | Next Due | + + + + | TDAP, (ADOL/ADULT) | 03/22/2014 | | + + + + Social History + +-------+ +--------+------+ | Tobacco Use | Types | Packs/Day | Years | Date | | | | | Used | | + +-------+ +--------+------+ | Former Smoker | | | | | + +-------+ [...] recent travel history available. | + + Last Filed Vital Signs Not on file Plan of Treatment + + + + + | Health Maintenance | Due Date | Last Done | Comments | + + + + + | Vaccine: HPV (1 - | | | | | Female 3-dose | 8 | | | | series) | | | | + + + + + | Cervical Cancer | | 05/18/2014 | | | Screening (Pap) | 8 | | | + + + + + | Vaccine: Influenza | | | | | (#1) | 9 | | | + + + + + | Vaccine: | | 03/22/2014 | | | Dtap/Tdap/Td (2 - | 5 | | | | Td) | | | | + + + + + Results Not on filefrom Last 3 Months"
--- OUTSIDE RECORDS SUMMARY | ~2019-01-23 | XMS | Encounter Summary ---
Demographics + + + | Address | [address] | | | [place] [address] | + + + | Home Phone | | + + + | Preferred Language | Unknown | + + + | Marital Status | Single | + + + | Quaker Affiliation | Unknown | + + + | Race | Unknown | + + + | Ethnic Group | Not or | + + + Author + + + | Author | [facility] | + + + | Organization | [facility] | + + + | Address | Unknown | + + + | Phone | Unavailable | + + + Support + + +---------+ + | Name | Relationship | Address | Phone | + + +---------+ + | Carlita Nawaf | ECON | Unknown | | + + +---------+ + Care Team Providers + +------+ + | Care Automatic Lathe Setter Name | Role | Phone | + +------+ + | Sally Morales DO | PCP | | + +------+ + Reason for Referral Consultation (Routine) +--------+--------+ + + + + | Status | Reason | Specialty | Diagnoses / | Referred By | Referred To | | | | | Procedures | Contact | Contact | +--------+--------+ + + + + | Closed | | Otolaryngolog | Diagnoses | Farnstrom, | Zaman | | | | y | Vertigo | Annel L, | Marina Pastrana T, | | | | | Procedures | PNP | MD [address] | | | | | CONSULT TO | Children[facility] | [address] | | | | | ENT OTOLOGY | Clinic | [address] | | | | | | [address] | [place], [place] | | | | | | [address] | [address] | | | | | | [address] | Phone: | | | | | | [place], [place] | [phone] | | | | | | [address] | Fax: | | | | | | Phone: | [phone] | | | | | | [phone] | | | | | | | Fax: | | | | | | | [phone] | | +--------+--------+ + + + + Reason for Visit + + + | Reason | Comments | + + + | New patient | | | consultation | | + + + Consultation (Routine) +--------+--------+ + + + + | Status | Reason | Specialty | Diagnoses / | Referred By | Referred To | | | | | Procedures | Contact | Contact | +--------+--------+ + + + + | Closed | | Otolaryngolog | Diagnoses | [facility] | Ent | | | | y | Ear | Epic Dept | Pediatrics | | | | | concerns | | [facility] [address] | | | | | | | [address] | | | | | | | [address] | | | | | | | Mailcode: | | | | | | | [address] | | | | | | | [place] | | | | | | | [place], [place] | | | | | | | [address] | | | | | | | Phone: | | | | | | | [phone] | | | | | | | Fax: | | | | | | | [phone] | +--------+--------+ + + + + Encounter Details +--------+---------+ + + + | Date | Type | Department | Care Team | Description | +--------+---------+ + + + | 06/02/ | Office | Otolaryngology | Annel Bernabe | Headache (Primary | | 2007 | Visit | General Services | L, PNP Childrens | Dx); Vertigo | | | | [address] [facility] | [facility] [address] | | | | | [address] Mailcode: | [address] | | | | | [address] | [address] [place], [place] | | | | | [place], [place] | [id number] | | | | | [address] | | | | | | [phone] | | | +--------+---------+ + + + [...] + + documented as of this encounter Last Filed Vital Signs + + + + + | Vital Sign | Reading | Time Taken | Comments | + + + + + | Blood Pressure | - | - | | + + + + + | Pulse | - | - | | + + + + + | Temperature | - | - | | + + + + + | Respiratory Rate | - | - | | + + + + + | Oxygen Saturation | - | - | | + + + + + | Inhaled Oxygen | - | - | | | Concentration | | | | + + + + + | Weight | 84.1 kg (185 lb 6.5 | 06/03/2007 11:39 AM | | | | oz) | PDT | | + + + + + | Height | - | - | | + + + + + | Body Mass Index | 28.93 | 06/03/2007 9:06 AM | | | | | PDT | | + + + + + documented in this encounter Progress Notes Srinivasa Luo, Annel Walters - 06/03/2007 2:23 PM PDTFormatting of this note might be different f rom the original. Clinic Date: 06/03/2007 Clinic: Pediatric Otolaryngology Clinic Primary Care Provider: Sally Banks DO History of Present Illness: Nadira is a 16 y[address] Lucia today for concerns of headaches, dizziness, and inner ear problems. She was initially evaluated in Endocrinolog y today for abnormal thyroid tests. Nadira reports daily headaches for the past 3 months t hat start within 1-2 hours upon waking in the morning and generally last all day with worsen ing pain, nausea, vomiting at times, and dizziness (with and without headaches). No vision c hanges. Lights and sound make the headaches worse. The pain starts at the top of her head an d moves toward the back. She complains of pressure in her head with extension to behind her eyes at times. Pain on average is a 7-8 out of 10 that drops to a 2 with Tylenol with Codein e. She usually takes medication when pain reaches a 4 but states she tries to take it when s he feels pain coming. She has taken 800mg of Ibuprofen three times in one day without relief . Imitrex has not been helpful. She has not tried other medications. No recent medication ch anges other than stopping Minocycline for acne. She denies hearing difficulty. She does state a few episodes of balance problems with heada ches, but does not lose control or fall. She complains of occasional ringing in her ears wit h and without headaches. No popping usually. She has had 1-2 sinus infections in the past fe w years that improved with antibiotics. No history of chronic nasal congestion. No history o f chronic otitis but had an ear infection 1 year ago that required antibiotics to clear. No otorrhea. No allergy history. She does have mild asthma. She reports feeling stress at schoo l and not sleeping well, which makes her headaches worse. There is a strong family history of migraine and headaches, both her mother and brother. Ryan baltazar also has a history of brain tumors: astrocytoma. Nadira started her menses last year and is still irregular. Unsure of LMP. No medications . Headaches are not effected by menses. Medications: Current outpatient medications Medication acetaminophen-codeine 300-30 mg Oral Tablet Allergies Allergen Reactions Amoxicillin Rash No past medical history on file. No past surgical history on file. Additional past medical history, family history, social history, and review of systems are documented in pediatric otolaryngology intake form and were reviewed. Other documented findings do not contribute to the history of present illness. Physical Examination: General: Nadira is a well-developed, well-nourished, cooperative 16 y.o. in no acute distress. Vital Signs: Wt 84.1 kg (185 lbs 6.5 oz) HEENT: Head: Normocephalic and atraumatic. Ears: External ears are normal. The external auditory canals are clear. The tympanic membra rosanna are clear and intact. Eyes: Sclerae and conjunctivae are clear. Nose: No external deformity, septum is midline. Mucosa is pink, moist. No discharge is see n. Oral cavity/Oropharynx: Teeth are in good health. No labial, gingival, or other mucosal lesions. The palate appears intact without evidence of clefting. Tonsils are 1+. Neck: No masses or cervical lymphadenopathy. Neurologic: Cranial Nerves: She moves her face and tongue symmetrically. Lungs: Clear to auscultation. Heart: Regular rate and rhythm. Diagnostic Data: Brain MRI completed recently. Images not available. Report indicates deyanira walters evaluation. Assessment: Frequent headaches - suggestive of migraine. Vertigo. Plan: I have recommended that Nadira be evaluated by a neurologist (Dr. Silvino Porter) for migraines. I am happy to help facilitate this if she would like to return to [facility]. I have al so recommended vestibular testing with Dr. Gonzalez in Otology and have placed a consult should s he wish to proceed. I would like Nadira to talk with Dr. Banks about stress management exercises and keep a journal of her headaches. [facility] Pediatric Otolaryngology documented in this encounter Plan of Treatment Not on filedocumented as of this encounter Visit Diagnoses + + | Diagnosis | + + | Headache(784.0) - Primary Headache | + + | Vertigo Dizziness and giddiness | + + documented in this encounter"
--- OUTSIDE RECORDS SUMMARY | ~2019-01-23 | XMS | Encounter Summary ---
Demographics + + + | Address | [address] | | | [place] [address] | + + + | Home Phone | | + + + | Preferred Language | Unknown | + + + | Marital Status | Single | + + + | Rastafarian Affiliation | Unknown | + + + | Race | Unknown | + + + | Ethnic Group | Not or | + + + Author + + + | Author | [facility] | + + + | Organization | [facility] | + + + | Address | Unknown | + + + | Phone | Unavailable | + + + Support + + +---------+ + | Name | Relationship | Address | Phone | + + +---------+ + | Carlita Nawaf | ECON | Unknown | | + + +---------+ + Care Team Providers + +------+ + | Care Precision Optics Technician Name | Role | Phone | + +------+ + | Sally Morales DO | PCP | | + +------+ + Encounter Details +--------+ + + + + | Date | Type | Department | Care Team | Description | +--------+ + + + + | 06/19/ | Abstract | Pediatric | Carey Lucia, | | | 2007 | | Endocrinology at | [address] | | | | | [address] | [address] | | | | | [facility] | [place], [place] | | | | | [address] | [address] | | | | | [address] Mailcode: | [phone] | | | | | [address] | | | | | | [place], [place] | | | | | | [address] | | | | | | [phone] | | | +--------+ + + + [...] | + +--------+ + + + | FREE T4 | Routin | 06/14/2007 | | Results for this | | | e | 7:55 AM | | procedure are in the | | | | PDT | | results section. | + +--------+ + + + documented in this encounter Results FREE T4, SERUM (06/14/2007 7:55 AM PDT) + + + + + + | Component | Value | Ref Range | Performed | Pathologist | | | | | At | Signature | + + + + + + | FREE T4, | 1.8Comment: Free T4 by | ng/dL | NON [facility] | | | SERUM | [facility] | | LAB | | + + + + + + + + | Specimen | + + | | + + + +---------+ + + | Performing | Address | City/State/Zipcode | Phone Number | | Organization | | | | + +---------+ + + | [facility] | | | | + +---------+ + + documented in this encounter Visit Diagnoses Not on filedocumented in this encounter"
--- OUTSIDE RECORDS SUMMARY | ~2019-01-23 | XMS | Encounter Summary ---
Demographics + + + | Address | [address] | | | [place] [address] | + + + | Home Phone | | + + + | Preferred Language | Unknown | + + + | Marital Status | Single | + + + | Yarsani Affiliation | Unknown | + + + | Race | Unknown | + + + | Ethnic Group | Not or | + + + Author + + + | Author | [facility] | + + + | Organization | [facility] | + + + | Address | Unknown | + + + | Phone | Unavailable | + + + Support + + +---------+ + | Name | Relationship | Address | Phone | + + +---------+ + | Carlita Nawaf | ECON | Unknown | | + + +---------+ + Care Team Providers + +------+ + | Care Manifest Clerk Name | Role | Phone | + [...] + + + | Closed | | Business Objects Report Developer | | Junie | Kiko | | [...] Mailcode: | | | | | | [place], [place] | [address] | | | | | | [address] | Physician's | | | | | | Phone: | [facility] | | | | | | [phone] | [place], [place] | | | | | | Fax: | [address] | | | | | | [phone] | Phone: | | | | | | | [phone] | | | | | | | Fax: | | | | | | | [phone] | +--------+--------+ + + + + Encounter [...] | | [address] | Rd [place], [place] | | | | | Mailcode: [address] | [address] | | | | | Physician's [address] | | | | | | [place], [place] | | | | | | [address] | | | | | | [phone] | | | +--------+---------+ + + + [...] | + + +--------+ + + | ND COMPREHENSIVE | Procedures | Routin | Conductive Hearing | Ordered: 07/11/2007 | | HEARING TEST | | e | Loss, Unilateral | | + + +--------+ + + | ND TYMPANOMETRY | Procedures | Routin | Conductive Hearing | Ordered: 07/11/2007 | | | | e | Loss, Unilateral | | + + +--------+ + + documented as of this encounter Visit Diagnoses + + | Diagnosis | + + | Conductive hearing loss, unilateral - Primary | + + documented in this encounter"
--- OUTSIDE RECORDS SUMMARY | ~2019-01-23 | XMS | Clinical Summary ---
Demographics + + + | Address | [address] | | | [place] [address] | + + + | Home Phone | | + + + | Preferred Language | Unknown | + + + | Marital Status | Single | + + + | Sabianist Affiliation | Unknown | + + + | Race | Unknown | + + + | Ethnic Group | Not or | + + + Author + + + | Author | [facility] | + + + | Organization | [facility] | + + + | Address | Unknown | + + + | Phone | Unavailable | + + + Support + + +---------+ + | Name | Relationship | Address | Phone | + + +---------+ + | Carlita Mccracken | ECON | Unknown | | + + +---------+ + Care Team Providers + +------+ + | Care Drone Software Development Engineer Name | Role | Phone | + +------+ + | Sally Morales DO | PCP | | + +------+ + Source Comments [facility] is fully live on both [facility] and [facility] Allergies + + + + + + | Active Allergy | Reactions | Severity | Noted | Comments | | | | | Date | | + + + + + + | Amoxicillin | Rash | Medium | 06/03/19 | | | | | | 08 | | + + + + + + Medications + + + +---------+------+------+-------+ | Medication | Sig | Dispensed | Refills | Star | End | Statu | | | | | | t | Date | s | | | | | | Date | | | + + + +---------+------+------+-------+ | | 1 to 2 tablets PO | 18 | 0 | 04/ | | Activ | | acetaminophen-codein | q4-6 hours PRN | | | 03/13 | | e | | e 300-30 mg Oral | headaches | | | 08 | | | | Tablet | | | | | | | + + + +---------+------+------+-------+ | TOPAMAX OR | None Entered | | 0 | | | Activ | | | | | | | | e | + + + +---------+------+------+-------+ Active Problems + + + | Problem | Noted Date | + + + | Dizziness and giddiness | 07/11/2007 | + + + | Headache | 06/03/2007 | + + + + + | Overview: ICD10 | + + + + + | Abnormal laboratory test | 06/03/2007 | + + + Social History + +-------+ [...] | + + Last Filed Vital Signs + + + + + | Vital Sign | Reading | Time Taken | Comments | + + + + + | Blood Pressure | 140/80 | 07/11/2007 10:32 AM | | | | | PDT | | + + + + + | Pulse | 85 | 06/03/2007 9:06 AM | | | [...] + + + + | Height | 170.5 cm (5' 7.13") | 06/03/2007 9:06 AM | | | | | PDT | | + + + + + | Body Mass Index | 28.93 | 06/03/2007 9:06 AM | | | | | PDT | | + + + + + Plan of Treatment + + + + + | Health Maintenance | Due Date | Last Done | Comments | + + + + + | Influenza (Flu) | | | | | vaccination (#1) | 9 | | | + + + + + | Pneumococcal | Aged Out | | No longer eligible | | vaccination | | | based on patient's | | | | | age to complete this | | | | | topic | + + + + + Results Not on filefrom Last 3 Months Insurance + +--------+ +--------+ + +------+ | Payer | Benefi | Subscriber | Effect | Phone | Address | Type | | | t Plan | ID | babar | | | | | | / | | Dates | | | | | | Group | | | | | | + +--------+ +--------+ + +------+ | BLUE CROSS BLUE | BCBS | [phone] | Effect | [phone] | [address] | PPO | | SHIELD | OUT OF | x | babar | 8 | [address] | | | | [place] | | for | | [place], | | | | | | all | | [place] | | | | | | dates | | [address] | | + +--------+ +--------+ + +------+ | BLUE CROSS BLUE | REGENC | [phone] | 05/27/19 | [phone] | [address] | PPO | | SHIELD | E BCBS | xxx | 18-Pre | 8 | [address] | | | | | | sent | | [place], | | | | | | | | [place] | | | | | | | | [address] | | + +--------+ +--------+ + +------+ + +--------+ +--------+ + + | Guarantor Name | Accoun | Relation to | Date | Phone | Billing Address | | | t Type | Patient | of | | | | | | | | | | + +--------+ +--------+ + + | CARLITA MCCRACKEN | Person | Parent | [birth year] | [address] | | | al/Fam | | 1955 | [phone] | [place] [address] | | | matias | | | 4 (Home) | | + +--------+ +--------+ + + Advance Directives + + + + + | Type | Date Recorded | Patient | Explanation | | | | Traffic Supervisor | | + + + + + | Advance | | | | | Directives and | | | | | Living Will | | | | + + + + + | Power of | | | | | [place] | | | | + + + + +
--- OUTSIDE RECORDS SUMMARY | ~2019-01-23 | XMS | Encounter Summary ---
Demographics + + + | Address | [address] | | | [place] [address] | + + + | Home Phone | | + + + | Preferred Language | Unknown | + + + | Marital Status | Single | + + + | Christianity Affiliation | Unknown | + + + | Race | Unknown | + + + | Ethnic Group | Not or | + + + Author + + + | Author | [facility] | + + + | Organization | [facility] | + + + | Address | Unknown | + + + | Phone | Unavailable | + + + Support + + +---------+ + | Name | Relationship | Address | Phone | + + +---------+ + | Carlita Nawaf | ECON | Unknown | | + + +---------+ + Care Team Providers + +------+ + | Care Welt Stitcher Name | Role | Phone | + +------+ + | Sally Morales DO | PCP | | + +------+ + Encounter Details +--------+ + + + + | Date | Type | Department | Care Team | Description | +--------+ + + + + | 06/02/ | Orders Only | Pediatric | Carey Lucia, | Abnormal Laboratory | | 2007 | | Endocrinology at | MD [address] | Test (Primary Dx) | | | | Rick | [address] | | | | | [facility] | [place], [place] | | | | | [address] | [address] | | | | | Lesa Castillo Mailcode: | [phone] | | | | | [address] | | | | | | [place], [place] | | | | | | [address] | | | | | | [phone] | | | +--------+ + + + [...] as of this encounter Plan of Treatment + + +--------+ + + | Name | Type | Priori | Associated Diagnoses | Order Schedule | | | | ty | | | + + +--------+ + + | [facility] | Procedures | Routin | Abnormal | Ordered: 06/03/2007 | | VENIPUNCTURE, | | e | Laboratory Test | | | ROUTINE | | | | | + + +--------+ + + documented as of this encounter Procedures + +--------+ + + + | Procedure Name | Priori | Date/Time | Associated Diagnosis | Comments | | | ty | | | | + +--------+ + + + | THYROXINE BINDING | Routin | 06/03/2007 | Abnormal | Results for this | | GLOBULIN, SERUM | e | 10:27 AM | Laboratory Test | procedure are in the | | | | PDT | | results section. | + +--------+ + + + | FREE T4 | Routin | 06/03/2007 | Abnormal | Results for this | | | e | 10:27 AM | Laboratory Test | procedure are in the | | | | PDT | | results section. | + +--------+ + + + | TSH | Routin | 06/03/2007 | Abnormal | Results for this | | | e | 10:27 AM | Laboratory Test | procedure are in the | | | | PDT | | results section. | + +--------+ + + + documented in this encounter Results THYROXINE BINDING GLOBULIN, SERUM (06/03/2007 10:27 AM PDT) + + + + + + | Component | Value | Ref Range | Performed | Pathologist | | | | | At | Signature | + + + + + + | THYROXINE | 20.1 (H)Comment: | 1.8 - 4.2 mg/dL | | | | BIND GLOB | Test performed by | | | | | | [facility]. | | | | + + + + + + + + | Specimen | + + | | + + + + + + + | Performing | Address | City/State/Zipcode | Phone Number | | Organization | | | | + + + + + | [facility] | [address] [facility] [facility] | [place], [place] | | | | | [address] | | + + + + + THYROID STIM HORMONE, SERUM (06/03/2007 10:27 AM PDT) + +-------+ + + + | Component | Value | Ref Range | Performed | Pathologist | | | | | At | Signature | + +-------+ + + + | TSH | 1.50 | 0.34 - 5.60 | | | | | | uIU/ml | | | + +-------+ + + + + + | Specimen | + + | | + + + + + | Narrative | Performed At | + + + | Reference range change effective 12/13/06 | | | [facility] | | | [place] [address] | | | [place] [address] | | + + + + + + + + | Performing | Address | City/State/Zipcode | Phone Number | | Organization | | | | + + + + + | [facility] | [address] | [place] [address] | | | LABORATORY | | | | + + + + + FREE T4, SERUM (06/03/2007 10:27 AM PDT) + +-------+ + + + | Component | Value | Ref Range | Performed | Pathologist | | | | | At | Signature | + +-------+ + + + | FREE T4, | 0.6 | 0.6 - 1.6 ng/dL | | | | SERUM | | | | | + +-------+ + + + + + | Specimen | + + | | + + + + + | Narrative | Performed At | + + + | Reference Range change effective | | | 12/13/06 [facility] | | | [facility] [address] | | | [place] [address] | | + + + + + + + + | Performing | Address | City/State/Zipcode | Phone Number | | Organization | | | | + + + + + | [facility] | [address] | [place] [address] | | | LABORATORY | | | | + + + + + documented in this encounter Visit Diagnoses + + | Diagnosis | + + | Abnormal laboratory test - Primary Other abnormal clinical finding | + + documented in this encounter"
--- OUTSIDE RECORDS SUMMARY | ~2019-01-23 | XMS | Encounter Summary ---
Demographics + + + | Address | [address] | | | [place] [address] | + + + | Home Phone | | + + + | Preferred Language | Unknown | + + + | Marital Status | Single | + + + | Taoist Affiliation | Unknown | + + + | Race | Unknown | + + + | Ethnic Group | Not or | + + + Author + + + | Author | [facility] | + + + | Organization | [facility] | + + + | Address | Unknown | + + + | Phone | Unavailable | + + + Support + + +---------+ + | Name | Relationship | Address | Phone | + + +---------+ + | Carlita Nawaf | ECON | Unknown | | + + +---------+ + Care Team Providers + +------+ + | Care Lime Mixer Tender Name | Role | Phone | + +------+ + | aSlly Morales DO | PCP | | + [...] on | Endocrinology at | MD [address] [facility] | teaching, guidance, | | | | [place] | [address] | and counseling | | | | [facility] | [place], [place] | | | | | [address] | [address] | | | | | Lesa Castillo Mailcode: | [phone] | | | | | [address] [facility] [facility] | | | | | | [place], [place] | | | | | | [address] | | | | | | [phone] | | | +--------+ + + + [...]
--- OUTSIDE RECORDS SUMMARY | ~2019-01-23 | XMS | Encounter Summary ---
Demographics + + + | Address | [address] | | | [place] [address] | + + + | Home Phone | | + + + | Preferred Language | Unknown | + + + | Marital Status | Single | + + + | Hinduism Affiliation | Unknown | + + + | Race | Unknown | + + + | Ethnic Group | Not or | + + + Author + + + | Author | [facility] | + + + | Organization | [facility] | + + + | Address | Unknown | + + + | Phone | Unavailable | + + + Support + + +---------+ + | Name | Relationship | Address | Phone | + + +---------+ + | Carlita Nawaf | ECON | Unknown | | + + +---------+ + Care Team Providers + +------+ + | Care Derrick Engineer Name | Role | Phone | + +------+ + | Sally Mroales DO | PCP | | + +------+ [...] | | | | [address] | [place], [place] | | | | | | [address] | [address] | | | | | | [address] | Phone: | | | | | | [place], [place] | [phone] | | | | | | [address] | Fax: | | | | | | Phone: | [phone] | | | | | | [phone] | | | | | | | Fax: | | | | | | | [phone] | | +--------+--------+ + + + + [...] | | | | concerns | | [facility] [address] | | | | | | | [address] | | | | | | | [address] | | | | | | | Mailcode: | | | | | | | [address] | | | | | | | [address] | | | | | | | [place], [place] | | | | | | | [address] | | | | | | | Phone: | | | | | | | [phone] | | | | | | | Fax: | | | | | | | [phone] | +--------+--------+ + + + + Encounter Details +--------+---------+ + + + | Date | Type | Department | Care Team | Description | +--------+---------+ + + + | 06/02/ | Office | Otolaryngology | Annel Bernabe | Headache (Primary | | 2007 | Visit | General Services | L, PNP Childrens | Dx); Vertigo | | | | [address] [facility] | [facility] [address] | | | | | [address] Mailcode: | [address] | | | | | [address] | [address] [place], [place] | | | | | [place], [place] | [id number] | | | | | [address] | | | | | | [phone] | | | +--------+---------+ + + + [...] if she would like to return to [facility]. I have al so recommended vestibular testing [...]
--- OUTSIDE RECORDS SUMMARY | ~2019-01-23 | XMS | Encounter Summary ---
Demographics + + + | Address | [address] | | | [place] [address] | + + + | Home Phone | | + + + | Preferred Language | Unknown | + + + | Marital Status | Single | + + + | Adventist Affiliation | Unknown | + + + | Race | Unknown | + + + | Ethnic Group | Not or | + + + Author + + + | Author | [facility] | + + + | Organization | [facility] | + + + | Address | Unknown | + + + | Phone | Unavailable | + + + Support + + +---------+ + | Name | Relationship | Address | Phone | + + +---------+ + | Carlita Nawaf | ECON | Unknown | | + + +---------+ + Care Team Providers + +------+ + | Care Programmer Engineering And Scientific Name | Role | Phone | + +------+ + | Sally Morales DO | PCP | | + +------+ + Reason for Visit + + + | Reason | Comments | + + + | Hypothyroidism | | + + + Office Visit - E/M Services (Routine) +--------+ + + + + + | Status | Reason | Specialty | Diagnoses / | Referred By | Referred To | | | | | Procedures | Contact | Contact | +--------+ + + + + + | Closed | Specialty | Pediatric | Diagnoses | Sally Morales | Ped | | | Services | Endocrinology | | E, DO GOOD | Endocrinology | | | Required | | hypothyroidi | [place] [facility] | [facility] | | | | | sm | GROUP | [address] | | | | | | PEDIATRICS | [address] | | | | | | [address] | Mailcode: | | | | | | [facility] | [address] | | | | | | [address] | | | | | | [place], | [place], [place] | | | | | | [place] [address] | [address] | | | | | | Phone: | Phone: | | | | | | [phone] | [phone] | | | | | | Fax: | Fax: | | | | | | [phone] | [phone] | +--------+ + + + + + Encounter Details +--------+---------+ + + + | Date | Type | Department | Care Team | Description | +--------+---------+ + + + | 06/02/ | Office | Pediatric | Carey Lucia, | Abnormal Laboratory | | 2007 | Visit | Endocrinology at | MD [address] | Test (Primary Dx) | | | | [address] | [address] | | | | | [facility] | [place], [place] | | | | | [address] | [address] | | | | | [address] Mailcode: | [phone] | | | | | [address] | | | | | | [place], [place] | | | | | | [address] | | | | | | [phone] | | | +--------+---------+ + + + [...] + + + | Blood Pressure | 139/72 | 06/03/2007 9:06 AM | | | [...] + + + + | Weight | 84.3 kg (185 lb 13.6 | 06/03/2007 9:06 AM | | | | oz) | PDT | | + + + + + | Height | 170.5 cm (5' 7.13") | 06/03/2007 9:06 AM | | | | | PDT | | + + + + + | Body Mass Index | 29 | 06/03/2007 9:06 AM | | | | | PDT | | + + + + + documented in this encounter Patient Instructions Patient Instructions Carey Lucia - 06/03/2007 10:27 AM PDT1. We will check a free T4, TSH, and thyroid binding globulin today to check Ruthanna's thyroid hormone levels. 2. I will call you with results and recommendations at that time. documented in this encounter Progress Notes KhariCarey Jairo - 06/07/2007 4:37 PM PDTHPI: Nadira Mccracken is a 16 year-old female who comes to our clinic referred from her PCP in [place] for abnormal thyroid studies. These were taken by her PCP in March as part of a work up for headaches. She complains of MARTIN, nausea, dizziness, dry skin, ringing in left ear, insomnia, lethargy, mildly depressed mood, and weight loss. Thyroid symptoms: Lethargy, depression, dry skin, weight loss as below. States eating wel l. Denies c/d. Cold hands and feet. MARTIN: Since February and worsening with time. Equal bilaterally starting in the superior fro ntal part of her head and spreading to ~bregma, down to ears, and behind eyes. Spares the b ack of her head. Starts 1-2 hours after waking up in the morning and lasts until she goes t o sleep. No visual/auditory preceding symptoms. Loud noises make slightly worse once she i s already having headache but do not elicit headache. Refractory to ibuprofen, acetaminophe n, and imitrex. Patient takes 2-3 Tylenol #3 QDay which alleviates her pain (from a 7 to a 2). Nausea: Often associated with headaches. Since February and worsening with time. Misses 2 -3 days of school per week. Remote history of vomiting but pt reports mostly dry heaves. Feels like her stomach is churning. Often wakes up in the middle of the night wi th this symptom. Dizzyness: Often associated with headaches/nausea. States that she feels like the room is spinning mostly when she stands but also when she is stable. Reports that when she stops i n a car or stops in an elevator she occasionally has the sensation that she is still moving. Dry skin: Pt lives in dry climate ([place]) and has had dry skin X 2-3 years. Worst in winter and spring. Worse now than previously. Particularly on hands. Ringing in left ear: Often associated with headaches. Approximately 2 X/ week for 1 hour. Lethargy: Patient states that she often takes 3-4 hour naps and does not feel rested follo wing nights of sleeping 7-8 hours. She denies snoring except occasionally and denies interr upted breathing at night. Depression: Patient admits to mildly depressed mood with symptoms of waking up early in th e morning and ruminating so that she cannot fall back asleep once per week. Denies anhedoni a. Weight loss: States 13 pound weight loss in last 2-3 weeks. On exercise program at school for last 2 months. She is eating three meals per day. Medications: Tylenol # 3 of unknown dose. 2-3 tabs QD PRN headaches. PMH: Asthma. Menarche 1 year ago. Fam Hx: Mother dx ed at age 21 with first brain tumor. Has had astrocytoma X 2 and meningioma. Mother also had cluster headaches. Father took thyroid medicine to induce weight gain. PGM took thyroid medicine First cousin once removed with pineal tumor. Brother with schizoid personality disorder, aspergers. Soc Hx: Lives in [place] with Mother and older brother with psych issues. Mother appears anxious about diagnosis and denies the possibility of migraines. States that she enjoys th e 9th grade. ROS: Denies blood in the stool/urine. No headaches first thing in the morning. No change in vision. No numbness/loss of function of extremities. Otherwise, a full ROS is negative . O: BP 139/72, Pulse 85, Ht 170.5 cm (5' 7") (92 %ile), Wt 84.300 kg (185 lbs 13.6 oz)( > 9 7 %ile), Weight for age(%) 97.92%, BMI for age(%) 96.29%, Length for age(%) 91.86%. Gen: Pleasant female in NAD accompanied by mother. Cooperative. Tall but obese. BP 139/72, Pulse 85, Ht 170.5 cm (5' 7") (92 %ile), Wt 84.300 kg (185 lbs 13.6 oz)( > 97 %i le), Weight for age(%) 97.92%, BMI for age(%) 96.23%, Length for age(%) 91.86%. HEENT: MMM. PERRL. 14 teeth top and bottom. TM s intact with bony landmarks visualized and non-displaced light reflex. Nasal mucosa pink without blood or congestion. Neck: No thyroid masses palpable. No lymphadenopathy. Card: RRR w/o MRG Pulm: CTABL w/o WRRR Abd: Obese. Mild tenderness which resolved when patient distracted. ND. No organomegally /rebound/guarding. +BS Ext/Skin: Dry skin over dorsal surfaces of hands with fine scale. No tenting. Hands warm with cap refill = 2 seconds. Feet cold to touch with cap refill = 4 seconds. Neuro: CN 2-12 intact BL. No tremor with hands outstretched. Biceps, triceps, bracheoradi kyle, patellar, and achilles reflexes 2+ BL. Labs: Total T4= 5.4(L), TSH= 0.32(L) (from outside lab). Normal ranges not included. Imaging: MRI (from outside clinic) did not demonstrate any masses/increased intracranial p ressure. The sinuses were not visualized. A/P: Thyroid: A total, but not free T4 was measured, and TSH is low-normal. The patien t is having some symptoms of hypothyroidism (lethargy, dry skin, obesity, depression) but sh e has also experienced recent weight loss which is inconsistent with a dx of hypothyroidism. The differential diagnosis is TSH deficiency or normal thyroid with possible TBG deficienc y leading to a spuriously low free T4. My suspicion is that thyroid function is likely norm al, and low thyroid is unlikely to explain the primary symptom of chronic headache. We will measure free T4, TBG and repeat TSH in clinic today and call Mom with the results o f the tests when they become available to recommend further endocrine management if necessar y. Mom has a high degree of concern about the headaches and was disappointed that I felt the t hyroid was not likely to explain them. She was very interested in getting an ENT opinion in view of the associated tinnitus and vertigo and was concerned about the possibility of an i nner ear process. I was able to get her seen by ENT the same day (see separate note of that visit). documented in th is encounter Plan of Treatment Not on filedocumented as of this encounter Results THYROXINE BINDING GLOBULIN, SERUM [...] + + + | [facility] | [address] [facility] | [place], [place] | | | | | [address] | | + + + + + [...] | | | [facility] [place] | | | [place] [address] | | | [place] [address] | | + + + + + + + + | Performing | Address | City/State/Zipcode | Phone Number | | Organization | | | | + + + + + | [facility] | [address] | [place] [address] | | | LABORATORY | | | [...] Range change effective | | | 12/13/06 [facility] ([facility]) | | | [facility] [place] [address] [facility] | | | [place] [address] | | + + + + + + + + | Performing | Address | City/State/Zipcode | Phone Number | | Organization | | | | + + + + + | [facility] | [address] [facility] [address] | [place] [address] | | | LABORATORY | | | | + + + + + documented in this encounter Visit Diagnoses + + | Diagnosis | + + | Abnormal laboratory test - Primary Other abnormal clinical finding | + + documented in this encounter
--- OUTSIDE RECORDS SUMMARY | ~2019-01-23 | XMS | Encounter Summary ---
Demographics + + + | Address | [address] | | | [place] [address] | + + + | Home Phone | | + + + | Preferred Language | Unknown | + + + | Marital Status | Single | + + + | Mandaen Affiliation | Unknown | + + + | Race | Unknown | + + + | Ethnic Group | Not or | + + + Author + + + | Author | [facility] | + + + | Organization | [facility] | + + + | Address | Unknown | + + + | Phone | Unavailable | + + + Support + + +---------+ + | Name | Relationship | Address | Phone | + + +---------+ + | Carlita Nawaf | ECON | Unknown | | + + +---------+ + Care Team Providers + +------+ + | Care Vice President Industrial Relations Name | Role | Phone | + [...] + + + | Closed | | Pediatric | Diagnoses | Zaman | [place] | | | | Neurology | | Marina Pastrana | MD Silvino | | | | | Headache(784 | [address] | | | | | .0) | [address] | [address] | | | | | Dizziness | [address] | [address] [place], | | | | | and | Rd | [place] | | | | | giddiness | [place], [place] | [address] | | | | | Procedures | [address] | | | | | | CONSULT TO | Phone: | | | | | | NEUROLOGY | [phone] | | | | | | | Fax: | | | | | | | [phone] | | +--------+--------+ + + + + Reason for Visit +---------+ + | Reason | Comments | +---------+ + | Vertigo | new pt here for vertigo and tinnitus eval, audio done today | +---------+ + Encounter Details +--------+---------+ + + + | Date | Type | Department | Care Team | Description | +--------+---------+ + + + | 07/10/ | Office | Otolaryngology | Marina Schulte | Headache; Dizziness | | 2007 | Visit | Otology Services at | MD Ata [address] | and [place]idd[place] | | | | [facility] [address] | [address] | | | | | [address] | [place], [place] | | | | | Mailcode: PV01 | [address] | | | | | [facility] | [phone] | | | | | [place], [place] | | | | | | [address] | | | | | | [phone] | | | +--------+---------+ + + + [...] this encounter Last Filed Vital Signs + +---------+ + + | Vital Sign | Reading | Time Taken | Comments | + +---------+ + + | Blood Pressure | 140/80 | 07/11/2007 10:32 AM | | | | | PDT | | + +---------+ + + | Pulse | - | - | | + +---------+ + + | Temperature | - | - | | + +---------+ + + | Respiratory Rate | - | - | | + +---------+ + + | Oxygen Saturation | - | - | | + +---------+ + + | Inhaled Oxygen | - | - | | | Concentration | | | | + +---------+ + + | Weight | - | - | | + +---------+ + + | Height | - | - | | + +---------+ + + | Body Mass Index | - | - | | + +---------+ + + documented in this encounter Progress Notes Marina Schulte T - 07/11/2007 11:19 AM PDTFormatting of this note might be different fro m the original. Referred by: Annel Bernabe Nadira Mccracken is a 16 y.o. female who complains of dizziness. She describes her symptom as cloudy thinking, lightheadedness, nausea, occasional spinning, occasional vomiting, and alw ays with a headache. She describes her headache as "someone squeezing my head and sometimes stabbing my head" from vertex to midfrontal area. Bright lights bother her, but regular ligh ts do not. Onset: 5 months ago at a youth conference in [place], not otherwise ill. She has headache before but not this bad and not with dizziness. Frequency: headache is daily, for most of the day, slightly better with topamax. Other meds such as ibuprofen, tylenol #3, and immitrex did not help. Triggers: None. Associated symptoms: cloudy thinking, decreased charmaine ry in school. She has some high-pitched tinnitus for the last two months. She denies hear ing loss, vision change (she wears contacts), diplopia, dysphasia, or unilateral disturbance of motor or sensory function. She has an older sister and and a grandfather with migraine. Mother has history of astrocytoma and meningioma. She has a brother with Asberger's syndrome . No past medical history on file. No past surgical history on file. No family history on file. Social history:History Substance Use Topics Tobacco Use: Not on file Alcohol Use: Not on file Allergies Allergen Reactions Amoxicillin Rash Current outpatient medications Medication Sig Dispense Refill acetaminophen-codeine 300-30 mg Oral Tablet 1 to 2 tablets PO q4-6 hours PRN headaches 18 0 TOPAMAX OR None Entered ROS: A comprehensive review of systems is performed, and the salient points are summarized in the above HPI. VS: Blood pressure 140/80. GENERAL: Well developed, well nourished, no apparent distress. Normal ability to communicat e. HEAD/FACE: Atraumatic, nonsyndromatic. No lesion, mass or tenderness. No facial weakness. EYES: Equal, round, reactive to light. Extraocular motions intact. No nystagmus. EARS: External ears and auditory canals without lesion. AD: star-like scar on posterior inf erior quadrant, otherwise normal. : Tympanic membranes intact with normal landmarks and mo bility. Martino midline. Air conduction greater than bone conduction bilaterally at 512 Hz but bone conduction greater than air conduction bilaterally at 256 Hz. NOSE: Normal external appearance, mucosa, septum and turbinates. THROAT: Normal lips, teeth and gum. No mucosal or mass lesion. NECK: Trachea midline. No adenopathy or thyromegaly. RESPIRATORY: Breathing comfortably. Chest symmetrical with bilateral expansion. CARDIOVASCULAR: Regular rate and rhythm. No pedal edema. NEUROLOGICAL: Alert and oriented times 3. Normal mood and affect. Cranial nerves III-XII no rmal. No spontaneous or post head shake nystagmus with Frenzel lenses. Normal head thrust. N ormal pnqokf-ti-hjin, outj-jm-ubfh, and rapid alternating motion. Negative Hallpike. Negativ e Romberg. Normal gait and tandem walk. She is able to hop on one foot with eyes closed. Audiogram: 10 to 20dB CHL AD @ 500, 1000, and 2000Hz: SRT 20 WRS 100. Normal pure tone thr esholds : SRT 15 WRS 100. Tympanograms normal, type A, AU. VNG: Not ordered. CT: Not ordered. MRI: Hand carried by patient and reviewed today. No evidence of pathology in the CPA or bra in. ASSESSMENT & PLAN: Dizziness. Migraine. Nadira Mccracken is a 16yo F with dizziness and migraine headache. She does not demonstrate s ymptoms or physical examination findings consistent with a peripheral vestibular pathology. There is no evidence of CPA tumor. Her dizziness is most likely related to migraine. Finding s were discussed with the patient and her mother today. She will seek consultation with a ne urologist for her suspected migraine with vertigo. They will call to arrange an appointment with Dr. Silvino Porter in neurology here at [facility].Electronically signed by Marina cobos 07/21/2007 10:37 AM PDTdocumented in this encounter Plan of Treatment Not on filedocumented as of this encounter Procedures + +--------+ + + + | Procedure Name | Priori | Date/Time | Associated Diagnosis | Comments | | | ty | | | | + +--------+ + + + | LAB REPORTS | | 06/03/2007 | | Results for this | | | | 12:00 AM | | procedure are in the | | | | PDT | | results section. | + +--------+ + + + documented in this encounter Results LAB REPORTS (06/03/2007 12:00 AM PDT) + + + | Narrative | Performed At | + + + | | | + + + + + | Procedure Note | + + | Freda Murillo - 06/03/2007 12:00 AM PDT | | | + + documented in this encounter Visit Diagnoses + + | Diagnosis | + + | Headache(784.0) Headache | + + | Dizziness and giddiness | + + documented in this encounter
--- OUTSIDE RECORDS SUMMARY | ~2019-01-23 | XMS | Encounter Summary ---
Demographics + + + | Address | [address] | | | [place] [address] | + + + | Home Phone | | + + + | Preferred Language | Unknown | + + + | Marital Status | Single | + + + | Christian Affiliation | Unknown | + + + | Race | Unknown | + + + | Ethnic Group | Not or | + + + Author + + + | Author | [facility] | + + + | Organization | [facility] | + + + | Address | Unknown | + + + | Phone | Unavailable | + + + Support + + +---------+ + | Name | Relationship | Address | Phone | + + +---------+ + | Carlita Nawaf | ECON | Unknown | | + + +---------+ + Care Team Providers + +------+ + | Care Supervisor Cook Room Name | Role | Phone | + [...] | +--------+ + + + + | 06/08/ | Telephone | Pediatric | Carey Lucia, | Lab findings, | | 2007 | | Endocrinology at | MD [address] | teaching, guidance, | | | | [facility] | [address] | and counseling | | | | [facility] | [place], [place] | | | | | [address] | [address] | | | | | [address] Mailcode: | [phone] | | | | | [address] [facility] | | | | | | [place], [place] | | | | | | [address] | | | | | | [phone] | | | +--------+ + + + [...]
--- OUTSIDE RECORDS SUMMARY | ~2019-01-23 | XMS | Encounter Summary ---
Demographics + + + | Address | [address] | | | [place] [address] | + + + | Home Phone | | + + + | Preferred Language | Unknown | + + + | Marital Status | Single | + + + | Anabaptist Affiliation | Unknown | + + + | Race | Unknown | + + + | Ethnic Group | Not or | + + + Author + + + | Author | [facility] | + + + | Organization | [facility] | + + + | Address | Unknown | + + + | Phone | Unavailable | + + + Support + + +---------+ + | Name | Relationship | Address | Phone | + + +---------+ + | Carlita Nawaf | ECON | Unknown | | + + +---------+ + Care Team Providers + +------+ + | Care Rv Mechanic Name | Role | Phone | + +------+ + | Sally Morales DO | PCP | | + +------+ + Encounter Details +--------+ + + + + | Date | Type | Department | Care Team | Description | +--------+ + + + + | 05/16/ | Ancillary | Registration [id number] | | | | 2007 | [address] | [address] | | | | | [address] | [address] Mailcode: [id number] | | | | | | [place], [place] | | | | | | [address] | | | | | | [phone] | | | +--------+ + + + [...]
--- OUTSIDE RECORDS SUMMARY | ~2019-01-23 | XMS | Encounter Summary ---
Demographics + + + | Address | [address] | | | [place] [address] | + + + | Home Phone | | + + + | Preferred Language | Unknown | + + + | Marital Status | Single | + + + | Episcopal Affiliation | Unknown | + + + | Race | Unknown | + + + | Ethnic Group | Not or | + + + Author + + + | Author | [facility] | + + + | Organization | [facility] | + + + | Address | Unknown | + + + | Phone | Unavailable | + + + Support + + +---------+ + | Name | Relationship | Address | Phone | + + +---------+ + | Carlita Nawaf | ECON | Unknown | | + + +---------+ + Care Team Providers + +------+ + | Care Electrical Helper Name | Role | Phone | + [...] | | | | | PEDIATRICS | [address] | | | | | | [address] | Mailcode: | | | | | | [facility] | [address] | | | | | | [address] | | | | | | [place], | [place], [place] | | | | | | [place] [address] | [address] | | | | | | Phone: | Phone: | | | | | | [phone] | [phone] | | | | | | Fax: | Fax: | | | | | | [phone] | [phone] | +--------+ + + + + + [...] | | | | [facility] | [place], [place] | | | | | [address] | [address] | | | | | [address] Mailcode: | [phone] | | | | | [address] | | | | | | [place], [place] | | | | | | [address] | | | | | | [phone] | | | +--------+---------+ + + + [...] our clinic referred from her PCP in [place] for abnormal thyroid studies. These were taken [...] Dry skin: [place] climate ([place]) and has had dry skin X 2-3 [...] personality disorder, aspergers. Soc Hx: Lives in [place] with Mother and older brother with psych [...] + + + | [facility] | [address] | [place], [place] | | | | | [address] | | + + + + + [...] | | | [facility] | | | [place] [address] | | | [place] [address] | | + + + + + + + + | Performing | Address | City/State/Zipcode | Phone Number | | Organization | | | | + + + + + | [facility] | [address] | [place] [address] | | | LABORATORY | | | [...] change effective | | | 12/13/06 [facility]) | | | [facility] [place] [address] [facility] | | | [place] [address] | | + + + + + + + + | Performing | Address | City/State/Zipcode | Phone Number | | Organization | | | | + + + + + | [facility] | [address] | [place] [address] | | | LABORATORY | | | | + + + + + documented in this encounter Visit Diagnoses + + | Diagnosis | + + | Abnormal laboratory test - Primary Other abnormal clinical finding | + + documented in this encounter
--- OUTSIDE RECORDS SUMMARY | ~2019-01-23 | XMS | Clinical Summary ---
Demographics + + + | Address | [address] | | | [place] [address] | + + + | Home Phone [...] Team Providers + +------+ + | Care Storm Window Installer Name | Role | Phone | + +------+ + | Sally Morales DO | PCP | | + +------+ + Source Comments [facility] is fully live on both [facility] and [facility] In[facility] Allergies + + + + + + [...] | x | babar | 8 | [address] | | | | [place] | | for | | [place], | | | | | | all | | [place] | | | | | | dates | | [address] | | + +--------+ +--------+ + +------+ | [employer] | REGENC | [phone] | 05/27/19 | [phone] | [address] | PPO | | SHIELD | E [employer] | xxx | 18-Pre | 8 | [address] | | | | | | sent | | [place], | | | | | | | | [place] | | | | | | | | [address] | | + +--------+ +--------+ + +------+ [...] | 1955 | [phone] | [place] [address] | | | matias | | | 4 (Home) | | + +--------+ +--------+ + + Advance Directives + + + + + | Type | Date Recorded | Patient | Explanation | | | | Staff Submarine Warfare Officer | | + + + + + | Advance | | | | | Directives and | | | | | Living Will | | | | + + + + + | Power of | | | | | Back Shoe Operator | | | | + + + + +
--- OUTSIDE RECORDS SUMMARY | ~2019-01-23 | XMS | Encounter Summary ---
Demographics + + + | Address | [address] | | | [place] [address] | + + + | Home Phone | | + + + | Preferred Language | Unknown | + + + | Marital Status | Single | + + + | Hindu Affiliation | Unknown | + + + | Race | Unknown | + + + | Ethnic Group | Not or | + + + Author + + + | Author | [facility] | + + + | Organization | [facility] | + + + | Address | Unknown | + + + | Phone | Unavailable | + + + Support + + +---------+ + | Name | Relationship | Address | Phone | + + +---------+ + | Carlita Nawaf | ECON | Unknown | | + + +---------+ + Care Team Providers + +------+ + | Care Seafood Packer Name | Role | Phone | + [...] Rd | | | | | [facility] | [place], [place] | | | | | [address] | [address] | | | | | [address] Mailcode: | [phone] | | | | | [address] | | | | | | [place], [place] | | | | | | [address] | | | | | | [phone] | | | +--------+ + + + [...]
--- OUTSIDE RECORDS SUMMARY | ~2019-01-23 | XMS | Encounter Summary ---
Demographics + + + | Address | [address] | | | [place] [address] | + + + | Home Phone | | + + + | Preferred Language | Unknown | + + + | Marital Status | Single | + + + | Jew Affiliation | 1077 | + + + | Race | Unknown | + + + | Ethnic Group | Unknown | + + + Author + + + | Author | [facility] | | | and [place] | + + + | Organization | [facility] | | | and [...] Team Providers + +------+ + | Care Bank Analyst Name | Role | Phone | + +------+ + PCP | Unavailable | + +------+ + Encounter Details +--------+ + + + + | Date | Type | Department | Care Team | Description | +--------+ + + + + | 03/19/ | Hospital | [facility] | Ruth, Suha | premature | | 2015 - | Encounter | [facility] | Balbir RUSSELL MD [address] | rupture of membranes | | | | AND DELIVERY [address] | [address] | in third trimester | | 04/03/ | | [address] | [place] [address] | | | 2014 | | [place], [place] | [phone] | | | | | [address] | | | | | | [phone] | | | +--------+ + + + [...] Service: Obstetrics/Gynecology Author Type: Physician Filed: 04/03/14 5356 Date of Service: 04/03/141312 Status: Signed General Warehouse Associate: Ivan Arriaga MD (Physician) [facility] Service: Obstetrics & Gynecology Discharge Summary Date [...] no previa, closed cervix. Her exam at [facility] was 1 cm at the outer os but closed inner os. Received first do se of betamethasone. Also received Clindamycin and Erythromycin, MAgnesium sulfate. HOSPITAL COURSE: [facility] Service: Obstetrics & Gynecology Delivery Summary MATERNAL [...] prior to admission Medication Sig Dispense Refill Dcjevfbo-Php-Vx-FA ( #2 PO) Take by mouth. sertraline [...] on file. Follow up: VIN Gutiérrez [address] [address] [facility] [address] [place] [address], [address] [facility] [address] In 6 weeks follow up Medication List START taking these medications Breast Pump (lpn or medical assistant) QTY: 1 each Refills: 0 Doctor's comments: [...] are the prescriptions that you need to olive picker. You may get the following medications from any pharmacy - Breast Pump (lpn or medical assistant) - docusate sodium 100 MG capsule - [...] Author: RADHA Bentley Service: (none) Author Type: Marketing Operations Consultant Filed: 04/03/141806 Date of Service: 04/03/141756 Status: Signed General Warehouse Associate: RADHA Bentley (Marketing Operations Consultant) ETHEL met with Nicole WHITING and her mother. MOB had questions regarding paternity. CM provi ded a [facility] handout that talked about establishing paternity, child [...] support for MOB. JOHANNE lives at [address] [facility] in [place], [place]. Her number is [phone]. 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 Per MOB's RN, her work was going [...] 04/03/141915 Date of Service: 04/03/141699 Status: Signed General Warehouse Associate: Clarisa Chen RN (Registered Nurse) This note [...] Service: Obstetrics/Gynecology Author Type: Physician Filed: 04/03/14 6297 Date of Service: 04/02/142257 Status: Signed General Warehouse Associate: Ivan Arriaga MD (Physician) [facility] Service: Obstetrics & Gynecology Progress Note Day: [...] 50 mg Oral Daily PRN Medications acetaminophen, whwnfrlhin-wkuvcto-cnrd vera, dibucaine, diphenhydrAMINE, [] ibuprofe n FOLLOWED [...] AB POSITIVE Final 03/29/2014 Testing performed at [facility];[address] [place] [address] Final , ANTIBODY SCREEN Date Value Ref Range Status 03/29/2014 NEGATIVE Final 03/29/2014 Testing performed at [facility];[address] [place] [address];[place] [address] Final , HCT Date Value Ref Range Status 04/02/2014 31.0* 34.0 - 46.0 % Final Testing performed at [facility], [address] [place] [address] , HGB Date Value Ref Range Status 04/02/2014 10.8* 11.3 - 15.5 g/dL Final Testing performed at [facility], [address] [place] [address] , HEP B SURFACE AG Date Value [...] (none) Author Type: Registered Nurse Filed: 04/02/14 9391 Date of Service: 04/02/141429 Status: Signed General Warehouse Associate: Clarisa Chen RN (Registered Nurse) JOHANNE with [...] 04/01/14240 Date of Service: 04/01/14238 Status: Signed General Warehouse Associate: Ivan Arriaga MD (Physician) Patient is now [...] bedside ultrasound to confirm that , a 27986 ultrasound was performed by me at the [...] mostly academic purposes as well as to [facility] information for the pediatric department onversion Transactio n, Provider Unknown - 04/01/2014 12:00 AM PST Progress Notes by Anjali Martines RN at 04/01/14 0000 Author: Anjali Martines RN Service: (none) Author Type: Registered Nurse Filed: 04/01/14 0522 Date of Service: 04/01/14 0000 Status: Signed General Warehouse Associate: Anjali Martines RN (Registered Nurse) Report received. [...] 03/31/1450 Date of Service: 03/31/14843 Status: Signed General Warehouse Associate: Kamran Jean MD (Physician) [facility] Service: Obstetrics & Gynecology Antepartum Progress Note [...] 03/31/1446 Date of Service: 03/31/1445 Status: Signed General Warehouse Associate: Belem Turner RN (Registered Nurse) Patient asleep. Had been instructed earlier to call when awake during the night for vital signs. ustod Suha solomon MD - 03/30/2014 9:07 AM PST Progress Notes by Suha Miranda MD at 03/30/14906 Author: Suha Miranda MD Service: (none) Author Type: Physician Filed: 03/30/1409 Date of Service: 03/30/14906 Status: Signed General Warehouse Associate: Suha Miranda MD (Physician) [facility] Service: Obstetrics & Gynecology Progress Note Hospital [...] third trimester, Mar 19 ASSESSMENT & PLAN [id number] PPROM Day 12. Slightly elevated WBC but no clinical signs of chorioamnionitis. Will recheck WBC tonight Dr Jean, combination window installer, is aware of the plan for delivery [...] 0216 Date of Service: 03/29/140 Status: Signed General Warehouse Associate: Belem Turner RN (Registered Nurse) Patient put combination window installer light and requested to be put on EFM again. Thinks she "is jenaro " EFM on. onver stevie Transaction, Provider Unknown - 03/29/2014 12:08 PM PST Progress Notes by Zoila Durbin RD at 03/29/14 1208 Author: Zoila Durbin RD Service: (none) Author Type: Registered Dietitian Filed: 03/29/14 1221 Date of Service: 03/29/141207 Status: Signed General Warehouse Associate: Zoila Durbin RD (Registered Dietitian) Nutrition Assessment [...] prenat al MV daily. Estimated needs: Kcal: 8715-7885 (25-30 kcal/kg prepreg wt +452 kcal/) Protein: [...] Date of Service: 03/29/14 1038 Status: Signed General Warehouse Associate: Suha Miranda MD (Physician) [facility] Service: Obstetrics & Gynecology Progress Note Hospital [...] normal baseline, moderate variability and no decelerations. Vernon: irritab ility Musculoskeletal: She exhibits no edema [...] third trimester, Mar 19 ASSESSMENT & PLAN [id number] PPROM day 11 Reassuring status. Afebrile, no [...] Author: RADHA Bentley Service: (none) Author Type: Marketing Operations Consultant Filed: 03/28/14 527 Date of Service: 03/28/141741 Status: Signed General Warehouse Associate: RADHA Bentley (Marketing Operations Consultant) CM met with pt and discussed rooming [...] also an option. Pt has WIC in [place]. Cm provided [place] [facility] number and [place] [facility] number to pt. Pt's mother was on her way to visit with pt. CM provided CM's number so pt could contact CM if any other questions arose. Martha Webb er, AIRCRAFT ENGINE MECHANIC onver stevie Transaction, Provider Unknown - 03/28/2014 2:32 PM PST Progress Notes by Dilia Do RN at 03/28/14 1432 Author: Dilia Do RN Service: Obstetrics/Gynecology Author Type: Registered Nurse Filed: 03/28/14 1444 Date of Service: 03/28/14 143 Status: Signed General Warehouse Associate: Dilia Do RN (Registered Nurse) Discussed plan of care with Dr. Miranda. requested RN to schedule induction @34wks for Wednesday. Also custodial manager was notified to discuss with patient her options for staying in th e NICU/Parent rooms when she is discharged next week following the and lastly, [facility] was contacted regarding GBS results. Briantree stated "No GBS was collected" usSuha peterson MD - 03/28/2014 12:43 PM PST Progress Notes by Suha Miranda MD at 03/28/14 2841 Author: Suha Miranda MD Service: (none) Author Type: Physician Filed: 03/28/14 1247 Date of Service: 03/28/14 124 Status: Signed General Warehouse Associate: Suha Miranda MD (Physician) [facility] Service: Obstetrics & Gynecology Progress Note Reviewed records. Dating criteria: CARL May 13 based on US in Oct 17 measuring [id number]. labs dated 09/26/2013: Blood type AB POS, [...] Service: (none) Author Type: Physician Filed: 03/28/14 1232 Date of Service: 03/28/14 1231 Status: Signed General Warehouse Associate: Suha Miranda MD (Physician) [facility] Service: Obstetrics & Gynecology Progress Note Hospital [...] normal baseline, moderate variability and no decelerations. Vernon: irregular contractions Musculoskeletal: She exhibits no edema [...] third trimester, Mar 19 ASSESSMENT & PLAN [id number]. PPROM Day 10 Reassuring status. Afebrile, no [...] 03/28/141213 Date of Service: 03/28/141213 Status: Signed General Warehouse Associate: VINAY Rosenthal (Massage Therapist) 03/28/14 1100 Massage Therapy Interventions Locations Back Massage Therapy Technique Effleurage;Petrissage;[place]dean massage Response to treatment Decreased muscle tension onver stevie Transaction, Provider Unknown - 03/28/2014 4:31 AM PST Nurse Progress Note by Tiny Pulido RN at 03/28/14430 Author: Tiny Pulido RN Service: (none) Author Type: Registered Nurse Filed: 03/28/14430 Date of Service: 03/28/14430 Status: Signed General Warehouse Associate: Tiny Pulido RN (Registered Nurse) Pt sleeping, left undisturbed to promote rest. onver stevie Transaction, Provider Unknown - 03/27/2014 8:48 PM PST Nurse Progress Note by Tiny Pulido RN at 03/27/142047 Author: Tiny Pulido RN Service: (none) Author Type: Registered Nurse Filed: 03/27/142049 Date of Service: 03/27/142047 Status: Signed General Warehouse Associate: Tiny Pulido RN (Registered Nurse) EFM/TOCO removed, instructed pt to call RN if irritability becomes stronger contractions. P t up to void at this time and will PO hydrate after, she states she has not drank as much wa ter today as she usually does. onver stevie Transaction, Provider Unknown - 03/27/2014 2:52 PM PST Case Management by RADHA Bentley at 03/27/14 975 Author: RADHA Bentley Service: (none) Author Type: Marketing Operations Consultant Filed: 03/27/14 2686 Date of Service: 03/27/141451 Status: Signed General Warehouse Associate: RADHA Bentley (Marketing Operations Consultant) CM attempted to meet with pt regarding CM referral. Sign on door stating pt was sleeping. CM looked for RN and RN was not available. CM will attempt to meet with pt tomorrow, 03/28. RADHA Bentley uha Anderson MD - 03/27/2014 12:43 PM PST Progress Notes by Suha Miranda MD at 03/27/14 1249 Author: Suha Miranda MD Service: (none) Author Type: Physician Filed: 03/27/14 1249 Date of Service: 03/27/141242 Status: Signed General Warehouse Associate: Suha Miranda MD (Physician) [facility] Service: Obstetrics & Gynecology Progress Note Hospital [...] normal baseline, moderate variability and no decelerations. Vernon: no cont ractions Musculoskeletal: She exhibits no [...] trimester, Mar 19 ASSESSMENT & PLAN at [id number], PPROM Day 9. Reassuring status. WBC mildly [...] 03/26/141455 Date of Service: 03/26/141451 Status: Signed General Warehouse Associate: Jed Caraballo MD (Physician) [facility] Service: Obstetrics & Gynecology Antepartum Progress Note [...] 03/25/142099 Date of Service: 03/25/141856 Status: Signed General Warehouse Associate: Lamont Hummel MD (Physician) Related Notes: Original [...] Date of Service: 03/24/14 1100 Status: Signed General Warehouse Associate: Jed Caraballo MD (Physician) [facility] Service: Obstetrics & Gynecology Antepartum Progress Note [...] 03/23/142057 Date of Service: 03/23/142055 Status: Signed General Warehouse Associate: Esthela Tate RN (Registered Nurse) Small petechial [...] Date of Service: 03/23/14 124 Status: Signed General Warehouse Associate: Suha Miranda MD (Physician) [facility] Service: Obstetrics & Gynecology Progress Note Hospital [...] normal baseline, moderate variability and no decelerations. Vernon: irritability Musculoskeletal: She exhibits no edema or [...] Mar 19 ASSESSMENT & PLAN Primigravida at 50w1hIFE PPROM Day 5 Reassuring status No signs [...] 03/23/148 Date of Service: 03/23/1424 Status: Signed General Warehouse Associate: Ivan Arriaga MD (Physician) Status update. About [...] was performed by me at the bedside, [address]. I did not t jacob any images, however did demonstrate the real-time views to the patient and explained the m. They have are very appreciative for this evaluation Esthela Ralph CNM - 03/22/2014 11:22 PM PST Progress Notes by Esthela aTte RN at 03/22/142321 Author: Esthela Tate RN Service: Obstetrics/Gynecology Author Type: Registered Nurse Filed: 03/23/14 0015 Date of Service: 03/22/142321 Status: Signed General Warehouse Associate: Esthela Tate RN (Registered Nurse) RN called to room, pt c/o, "sharp cramping." TWAN almazan MD notified. Esthela Tate RNC Suha Sharif MD - 03/22/2014 12:45 PM PST Progress Notes by Suha Miranda MD at 03/22/14 1245 Author: Suha Miranda MD Service: (none) Author Type: Physician Filed: 03/22/14 5566 Date of Service: 03/22/14 124 Status: Signed General Warehouse Associate: Suha Miranda MD (Physician) [facility] Service: Obstetrics & Gynecology Progress Note Hospital [...] normal baseline, moderate variability and no decelerations. Vernon: irregul ar few contractions Musculoskeletal: She exhibits [...] Date of Service: 03/21/14 111 Status: Addendum General Warehouse Associate: Suha Miranda MD (Physician) Related Notes: Original Note by Suha Miranda MD (Physician) filed at 03/21/14 1121 [facility] Service: Obstetrics & Gynecology Progress Note Hospital [...] normal baseline, moderate variability and no decelerations. Vernon: irritability Musculoskeletal: She exhibits no edema or [...] 0658 Date of Service: 03/20/14654 Status: Signed General Warehouse Associate: Suha Miranda MD (Physician) [facility] Service: Obstetrics & Gynecology Progress Note Hospital [...] normal baseline, moderate variability and no decelerations. Vernon: no contractions Musculoskeletal: She exhibits no edema [...] Mar 19 ASSESSMENT & PLAN PPROM at [id number]. Reassuring status No signs or symptoms of [...] | | | | | [place] [address] | | | | + + + + + + | RED CELL | 3.40 (L)Comment: Testing | 3.70 - 5.10 | EXTERNAL | | | COUNT | performed at [facility], [address] | M/uL | LAB | | | | [address], | | | | | | [place] [address] | | | | + + + + + + | Hgb | 10.8 (L)Comment: Testing | 11.3 - 15.5 | EXTERNAL | | | | performed at [facility], [address] | g/dL | LAB | | | | [address], | | | | | | [place] [address] | | | | + + + + + + | Hematocrit, | 31.0 (L)Comment: Testing | 34.0 - 46.0 % | EXTERNAL | | | POC | performed at [facility], [address] | | LAB | | | | [address], | | | | | | [place] [address] | | | | + + + + + + | MCV | 91.3Comment: Testing | 80.0 - 100.0 fl | EXTERNAL | | | | performed at [facility], [address] | | LAB | | | | [address], | | | | | | [place] [address] | | | | + + + + + + | MCH | 31.9Comment: Testing | 27.0 - 34.0 pg | EXTERNAL | | | | performed at [facility], [address] | | LAB | | | | [address], | | | | | | [place] [address] | | | | + + + + + + | MCHC | 34.9Comment: Testing | 32.0 - 35.5 | EXTERNAL | | | | performed at [facility], [address] | g/dL | LAB | | | | [address], | | | | | | [place] [address] | | | | + + + + + + | RDW-CV | 41.6Comment: Testing | 37 - 53 fl | EXTERNAL | | | | performed at [facility], [address] | | LAB | | | | [address], | | | | | | [place] [address] | | | | + + + + + + | Platelet | 165Comment: Testing | 150 - 400 K/uL | EXTERNAL | | | Count | performed at [facility], [address] | | LAB | | | Plasma | [address], | | | | | | [place] [address] | | | | + + + + + + | MPV | 9.4Comment: Testing | fl | EXTERNAL | | | | performed at [facility], [address] | | LAB | | | | [address], | | | | | | [place] [address] | | | | + + + [...] interpretation and technical preparation was performed by [facility] | | | [facility], [address], | | | [place] [address] (Mask Layout Designer: Noel Kan M.D.; [facility]#: | | | [id number]). Diagnostician: Jose Guadalupe Thomson MD Pathologist | | | Electronically Signed 04/04/2014 | | + + + + +---------+ + + | Performing | Address | City/State/[facility] | Phone Number | | Organization | [...] EXTERNAL | | | | performed at [facility], [address] | | LAB | | | | [address], | | | | | | [place] [address] | | | | + + + + + + | RED CELL | 3.77Comment: Testing | 3.70 - 5.10 | EXTERNAL | | | COUNT | performed at [facility], [address] | M/uL | LAB | | | | [address], | | | | | | [place] [address] | | | | + + + + + + | Hgb | 11.9Comment: Testing | 11.3 - 15.5 | EXTERNAL | | | | performed at [facility], [address] | g/dL | LAB | | | | [address], | | | | | | [place] [address] | | | | + + + + + + | Hematocrit, | 34.5Comment: Testing | 34.0 - 46.0 % | EXTERNAL | | | POC | performed at [facility], [address] | | LAB | | | | [address], | | | | | | [place] [address] | | | | + + + + + + | MCV | 91.6Comment: Testing | 80.0 - 100.0 fl | EXTERNAL | | | | performed at [facility], [address] | | LAB | | | | [address], | | | | | | [place] [address] | | | | + + + + + + | MCH | 31.7Comment: Testing | 27.0 - 34.0 pg | EXTERNAL | | | | performed at [facility], [address] | | LAB | | | | [address], | | | | | | [place] [address] | | | | + + + + + + | MCHC | 34.6Comment: Testing | 32.0 - 35.5 | EXTERNAL | | | | performed at [facility], [address] | g/dL | LAB | | | | [address], | | | | | | [place] [address] | | | | + + + + + + | RDW-CV | 42.4Comment: Testing | 37 - 53 fl | EXTERNAL | | | | performed at [facility], [address] | | LAB | | | | [address], | | | | | | [place] [address] | | | | + + + + + + | Platelet | 200Comment: Testing | 150 - 400 K/uL | EXTERNAL | | | Count | performed at [facility], [address] | | LAB | | | Plasma | [address], | | | | | | [place] [address] | | | | + + + + + + | MPV | 9.7Comment: Testing | fl | EXTERNAL | | | | performed at [facility], [address] | | LAB | | | | [address], | | | | | | [place] [address] | | | | + + + + + + | Differentia | AUTOMATEDComment: | | EXTERNAL | | | l Type | Testing performed at | | LAB | | | | [facility], [address] | | | | | | [place] | | | | | | [address] | | | | + + + + + + | % Segmented | 72.3Comment: Testing | % | EXTERNAL | | | | performed at [facility], [address] | | LAB | | | Neutrophils | [address], | | | | | | [place] [address] | | | | + + + + + + | % | 19.1Comment: Testing | % | EXTERNAL | | | Lymphocytes | performed at [facility], [address] | | LAB | | | | [address], | | | | | | [place] [address] | | | | + + + + + + | % Monocytes | 7.2Comment: Testing | % | EXTERNAL | | | | performed at [facility], [address] | | LAB | | | | [address], | | | | | | [place] [address] | | | | + + + + + + | % | 1.0Comment: Testing | % | EXTERNAL | | | Eosinophils | performed at [facility], [address] | | LAB | | | | [address], | | | | | | [place] [address] | | | | + + + + + + | % Basophils | 0.4Comment: Testing | % | EXTERNAL | | | | performed at [facility], [address] | | LAB | | | | [address], | | | | | | [place] [address] | | | | + + + + + + | Absolute | 11.2 (H)Comment: Testing | 1.9 - 7.4 K/uL | EXTERNAL | | | Segmented | performed at [facility], [address] | | LAB | | | Neutrophils | [address], | | | | | | [place] [address] | | | | + + + + + + | Absolute | 3.0Comment: Testing | 1.0 - 3.9 K/uL | EXTERNAL | | | Lymphocytes | performed at [facility], [address] | | LAB | | | | [address], | | | | | | [place] [address] | | | | + + + + + + | Absolute | 1.1 (H)Comment: Testing | 0 - 0.8 K/uL | EXTERNAL | | | Monocytes | performed at [facility], [address] | | LAB | | | | [address], | | | | | | [place] [address] | | | | + + + + + + | Absolute | 0.2Comment: Testing | 0 - 0.5 K/uL | EXTERNAL | | | Eosinophils | performed at [facility], [address] | | LAB | | | | [address], | | | | | | [place] [address] | | | | + + + + + + | Absolute | 0.1Comment: Testing | 0 - 0.1 K/uL | EXTERNAL | | | Basophils | performed at [facility], [address] | | LAB | | | | [address], | | | | | | [place] [address] | | | | + + + [...] EXTERNAL | | | | performed at [facility], [address] | | LAB | | | | [address], | | | | | | [place] [address] | | | | + + + + + + | RED CELL | 3.98Comment: Testing | 3.70 - 5.10 | EXTERNAL | | | COUNT | performed at [facility], [address] | M/uL | LAB | | | | [address], | | | | | | [place] [address] | | | | + + + + + + | Hgb | 12.6Comment: Testing | 11.3 - 15.5 | EXTERNAL | | | | performed at [facility], [address] | g/dL | LAB | | | | [address], | | | | | | [place] [address] | | | | + + + + + + | Hematocrit, | 36.6Comment: Testing | 34.0 - 46.0 % | EXTERNAL | | | POC | performed at [facility], [address] | | LAB | | | | [address], | | | | | | [place] [address] | | | | + + + + + + | MCV | 92.0Comment: Testing | 80.0 - 100.0 fl | EXTERNAL | | | | performed at [facility], [address] | | LAB | | | | [address], | | | | | | [place] [address] | | | | + + + + + + | MCH | 31.6Comment: Testing | 27.0 - 34.0 pg | EXTERNAL | | | | performed at [facility], [address] | | LAB | | | | [address], | | | | | | [place] [address] | | | | + + + + + + | MCHC | 34.4Comment: Testing | 32.0 - 35.5 | EXTERNAL | | | | performed at [facility], [address] | g/dL | LAB | | | | [address], | | | | | | [place] [address] | | | | + + + + + + | RDW-CV | 42.9Comment: Testing | 37 - 53 fl | EXTERNAL | | | | performed at [facility], [address] | | LAB | | | | [address], | | | | | | [place] [address] | | | | + + + + + + | Platelet | 210Comment: Testing | 150 - 400 K/uL | EXTERNAL | | | Count | performed at [facility], [address] | | LAB | | | Plasma | [address], | | | | | | [place] [address] | | | | + + + + + + | MPV | 9.7Comment: Testing | fl | EXTERNAL | | | | performed at [facility], [address] | | LAB | | | | [address], | | | | | | [place] [address] | | | | + + + + + + | Differentia | AUTOMATEDComment: | | EXTERNAL | | | l Type | Testing performed at | | LAB | | | | [facility], [address] | | | | | | [place] | | | | | | [address] | | | | + + + + + + | % Segmented | 78.3Comment: Testing | % | EXTERNAL | | | | performed at [facility], [address] | | LAB | | | Neutrophils | [address] [place], | | | | | | [place] [address] | | | | + + + + + + | % | 14.7Comment: Testing | % | EXTERNAL | | | Lymphocytes | performed at [facility], [address] | | LAB | | | | [address], | | | | | | [place] [address] | | | | + + + + + + | % Monocytes | 6.0Comment: Testing | % | EXTERNAL | | | | performed at [facility], [address] | | LAB | | | | [address], | | | | | | [place] [address] | | | | + + + + + + | % | 0.7Comment: Testing | % | EXTERNAL | | | Eosinophils | performed at [facility], [address] | | LAB | | | | [address], | | | | | | [place] [address] | | | | + + + + + + | % Basophils | 0.3Comment: Testing | % | EXTERNAL | | | | performed at [facility], [address] | | LAB | | | | [address], | | | | | | [place] [address] | | | | + + + + + + | Absolute | 11.6 (H)Comment: Testing | 1.9 - 7.4 K/uL | EXTERNAL | | | Segmented | performed at [facility], [address] | | LAB | | | Neutrophils | [address], | | | | | | [place] [address] | | | | + + + + + + | Absolute | 2.2Comment: Testing | 1.0 - 3.9 K/uL | EXTERNAL | | | Lymphocytes | performed at [facility], [address] | | LAB | | | | [address], | | | | | | [place] [address] | | | | + + + + + + | Absolute | 0.9 (H)Comment: Testing | 0 - 0.8 K/uL | EXTERNAL | | | Monocytes | performed at [facility], [address] | | LAB | | | | [address], | | | | | | [place] [address] | | | | + + + + + + | Absolute | 0.1Comment: Testing | 0 - 0.5 K/uL | EXTERNAL | | | Eosinophils | performed at [facility], [address] | | LAB | | | | [address], | | | | | | [place] [address] | | | | + + + + + + | Absolute | 0.1Comment: Testing | 0 - 0.1 K/uL | EXTERNAL | | | Basophils | performed at [facility], [address] | | LAB | | | | [address], | | | | | | [place] [address] | | | | + + + [...] EXTERNAL | | | | performed at [facility], [address] | | LAB | | | | [address], | | | | | | [place] [address] | | | | + + + + + + | RED CELL | 3.74Comment: Testing | 3.70 - 5.10 | EXTERNAL | | | COUNT | performed at [facility], [address] | M/uL | LAB | | | | [address], | | | | | | [place] [address] | | | | + + + + + + | Hgb | 11.8Comment: Testing | 11.3 - 15.5 | EXTERNAL | | | | performed at [facility], [address] | g/dL | LAB | | | | [address], | | | | | | [place] [address] | | | | + + + + + + | Hematocrit, | 34.2Comment: Testing | 34.0 - 46.0 % | EXTERNAL | | | POC | performed at [facility], [address] | | LAB | | | | [address], | | | | | | [place] [address] | | | | + + + + + + | MCV | 91.4Comment: Testing | 80.0 - 100.0 fl | EXTERNAL | | | | performed at [facility], [address] | | LAB | | | | [address], | | | | | | [place] [address] | | | | + + + + + + | MCH | 31.5Comment: Testing | 27.0 - 34.0 pg | EXTERNAL | | | | performed at [facility], [address] | | LAB | | | | [address], | | | | | | [place] [address] | | | | + + + + + + | MCHC | 34.4Comment: Testing | 32.0 - 35.5 | EXTERNAL | | | | performed at [facility], [address] | g/dL | LAB | | | | [address], | | | | | | [place] [address] | | | | + + + + + + | RDW-CV | 41.6Comment: Testing | 37 - 53 fl | EXTERNAL | | | | performed at [facility], [address] | | LAB | | | | [address], | | | | | | [place] [address] | | | | + + + + + + | Platelet | 193Comment: Testing | 150 - 400 K/uL | EXTERNAL | | | Count | performed at [facility], [address] | | LAB | | | Plasma | [address], | | | | | | [place] [address] | | | | + + + + + + | MPV | 9.6Comment: Testing | fl | EXTERNAL | | | | performed at [facility], [address] | | LAB | | | | [address], | | | | | | [place] [address] | | | | + + + + + + | Differentia | AUTOMATEDComment: | | EXTERNAL | | | l Type | Testing performed at | | LAB | | | | [facility], [address] | | | | | | [place] | | | | | | [address] | | | | + + + + + + | % Segmented | 70.4Comment: Testing | % | EXTERNAL | | | | performed at [facility], [address] | | LAB | | | Neutrophils | [address], | | | | | | [place] [address] | | | | + + + + + + | % | 20.6Comment: Testing | % | EXTERNAL | | | Lymphocytes | performed at [facility], [address] | | LAB | | | | [address], | | | | | | [place] [address] | | | | + + + + + + | % Monocytes | 7.9Comment: Testing | % | EXTERNAL | | | | performed at [facility], [address] | | LAB | | | | [address], | | | | | | [place] [address] | | | | + + + + + + | % | 0.8Comment: Testing | % | EXTERNAL | | | Eosinophils | performed at [facility], [address] | | LAB | | | | [address], | | | | | | [place] [address] | | | | + + + + + + | % Basophils | 0.3Comment: Testing | % | EXTERNAL | | | | performed at [facility], [address] | | LAB | | | | [address], | | | | | | [place] [address] | | | | + + + + + + | Absolute | 10.6 (H)Comment: Testing | 1.9 - 7.4 K/uL | EXTERNAL | | | Segmented | performed at [facility], [address] | | LAB | | | Neutrophils | [address], | | | | | | [place] [address] | | | | + + + + + + | Absolute | 3.1Comment: Testing | 1.0 - 3.9 K/uL | EXTERNAL | | | Lymphocytes | performed at [facility], [address] | | LAB | | | | [address], | | | | | | [place] [address] | | | | + + + + + + | Absolute | 1.2 (H)Comment: Testing | 0 - 0.8 K/uL | EXTERNAL | | | Monocytes | performed at [facility], [address] | | LAB | | | [address], | | | | | | [place] [address] | | | | + + + + + + | Absolute | 0.1Comment: Testing | 0 - 0.5 K/uL | EXTERNAL | | | Eosinophils | performed at [facility], [address] | | LAB | | | | [address], | | | | | | [place] [address] | | | | + + + + + + | Absolute | 0.0Comment: Testing | 0 - 0.1 K/uL | EXTERNAL | | | Basophils | performed at [facility], [address] | | LAB | | | | [address], | | | | | | [place] [address] | | | | + + + [...] EXTERNAL | | | | performed at [facility] | | LAB | | | | [address];[place] | | | | | | [address] | | | | + + + + + + | RED CELL | 3.93Comment: Testing | 3.70 - 5.10 | EXTERNAL | | | COUNT | performed at [facility];[address] | M/uL | LAB | | | | [address];[place] | | | | | | [address] | | | | + + + + + + | Hgb | 12.2Comment: Testing | 11.3 - 15.5 | EXTERNAL | | | | performed at [facility];[address] | g/dL | LAB | | | | [address];[place] | | | | | | [address] | | | | + + + + + + | Hematocrit, | 35.4Comment: Testing | 34.0 - 46.0 % | EXTERNAL | | | POC | performed at [facility];[address] | | LAB | | | | [address];[place] | | | | | | [address] | | | | + + + + + + | MCV | 90.0Comment: Testing | 80.0 - 100.0 fl | EXTERNAL | | | | performed at [facility];[address] | | LAB | | | | [address];[place] | | | | | | [address] | | | | + + + + + + | MCH | 31.0Comment: Testing | 27.0 - 34.0 pg | EXTERNAL | | | | performed at [facility];[address] | | LAB | | | | [address];[place] | | | | | | [address] | | | | + + + + + + | MCHC | 34.5Comment: Testing | 32.0 - 35.5 | EXTERNAL | | | | performed at [facility];[address] | g/dL | LAB | | | | [address];[place] | | | | | | [address] | | | | + + + + + + | RDW-CV | 42.9Comment: Testing | 37 - 53 fl | EXTERNAL | | | | performed at [facility];[address] | | LAB | | | | [address];[place] | | | | | | [address] | | | | + + + + + + | Platelet | 213Comment: Testing | 150 - 400 K/uL | EXTERNAL | | | Count | performed at [facility];[address] | | LAB | | | Plasma | [address];[place] | | | | | | [address] | | | | + + + + + + | MPV | 8.9Comment: Testing | fl | EXTERNAL | | | | performed at [facility];[address] | | LAB | | | | [address];[place] | | | | | | [address] | | | | + + + + + + | Differentia | AUTOMATEDComment: | | EXTERNAL | | | l Type | Testing performed at | | LAB | | | | [facility];[address] | | [address];[place] [address] | | | | + + + + + + | % Segmented | 70.7Comment: Testing | % | EXTERNAL | | | | performed at [facility];[address] | | LAB | | | Neutrophils | [address];[place] | | | | | | [address] | | | | + + + + + + | % | 21.5Comment: Testing | % | EXTERNAL | | | Lymphocytes | performed at [facility];[address] | | LAB | | | | [address];[place] | | | | | | [address] | | | | + + + + + + | % Monocytes | 6.2Comment: Testing | % | EXTERNAL | | | | performed at [facility];[address] | | LAB | | | | [address];[place] | | | | | | [address] | | | | + + + + + + | % | 1.3Comment: Testing | % | EXTERNAL | | | Eosinophils | performed at [facility];[address] | | LAB | | | | [address];[place] | | | | | | [address] | | | | + + + + + + | % Basophils | 0.3Comment: Testing | % | EXTERNAL | | | | performed at [facility];[address] | | LAB | | | | [address];[place] | | | | | | [address] | | | | + + + + + + | Absolute | 9.3 (H)Comment: Testing | 1.9 - 7.4 K/uL | EXTERNAL | | | Segmented | performed at [facility];[address] | | LAB | | | Neutrophils | [address];[place] | | | | | | [address] | | | | + + + + + + | Absolute | 2.8Comment: Testing | 1.0 - 3.9 K/uL | EXTERNAL | | | Lymphocytes | performed at [facility];[address] | | LAB | | | | [address];[place] | | | | | | [address] | | | | + + + + + + | Absolute | 0.8Comment: Testing | 0 - 0.8 K/uL | EXTERNAL | | | Monocytes | performed at [facility];[address] | | LAB | | | | [address];[place] | | | | | | [address] | | | | + + + + + + | Absolute | 0.2Comment: Testing | 0 - 0.5 K/uL | EXTERNAL | | | Eosinophils | performed at [facility];[address] | | LAB | | | | [address];[place] | | | | | | [address] | | | | + + + + + + | Absolute | 0.0Comment: Testing | 0 - 0.1 K/uL | EXTERNAL | | | Basophils | performed at [facility];[address] | | LAB | | | | [address];[place] | | | | | | [address] | | | | + + + [...] EXTERNAL | | | | performed at [facility];[address] | | LAB | | | | [address];[place] | | | | | | [address] | | | | + + + + + + | RED CELL | 4.01Comment: Testing | 3.70 - 5.10 | EXTERNAL | | | COUNT | performed at [facility];[address] | M/uL | LAB | | | | [address];[place] | | | | | | [address] | | | | + + + + + + | Hgb | 12.4Comment: Testing | 11.3 - 15.5 | EXTERNAL | | | | performed at [facility];[address] | g/dL | LAB | | | | [address];[place] | | | | | | [address] | | | | + + + + + + | Hematocrit, | 36.1Comment: Testing | 34.0 - 46.0 % | EXTERNAL | | | POC | performed at [facility];[address] | | LAB | | | | [address];[place] | | | | | | [address] | | | | + + + + + + | MCV | 89.9Comment: Testing | 80.0 - 100.0 fl | EXTERNAL | | | | performed at [facility];[address] | | LAB | | | | [address];[place] | | | | | | [address] | | | | + + + + + + | MCH | 31.0Comment: Testing | 27.0 - 34.0 pg | EXTERNAL | | | | performed at [facility];[address] | | LAB | | | | [address];[place] | | | | | | [address] | | | | + + + + + + | MCHC | 34.5Comment: Testing | 32.0 - 35.5 | EXTERNAL | | | | performed at [facility];[address] | g/dL | LAB | | | | [address];[place] | | | | | | [address] | | | | + + + + + + | RDW-CV | 42.0Comment: Testing | 37 - 53 fl | EXTERNAL | | | | performed at [facility];[address] | | LAB | | | | [address];[place] | | | | | | [address] | | | | + + + + + + | Platelet | 235Comment: Testing | 150 - 400 K/uL | EXTERNAL | | | Count | performed at [facility];[address] | | LAB | | | Plasma | [address];[place] | | | | | | [address] | | | | + + + + + + | MPV | 9.0Comment: Testing | fl | EXTERNAL | | | | performed at [facility];[address] | | LAB | | | | [address];[place] | | | | | | [address] | | | | + + + + + + | Differentia | AUTOMATEDComment: | | EXTERNAL | | | l Type | Testing performed at | | LAB | | | | [facility];[address] | [address];[place] [address] | | | | + + + + + + | % Segmented | 74.5Comment: Testing | % | EXTERNAL | | | | performed at [facility];[address] | | LAB | | | Neutrophils | [address];[place] | | | | | | [address] | | | | + + + + + + | % | 16.8Comment: Testing | % | EXTERNAL | | | Lymphocytes | performed at [facility];[address] | | LAB | | | | [address];[place] | | | | | | [address] | | | | + + + + + + | % Monocytes | 7.5Comment: Testing | % | EXTERNAL | | | | performed at [facility];[address] | | LAB | | | | [address];[place] | | | | | | [address] | | | | + + + + + + | % | 1.1Comment: Testing | % | EXTERNAL | | | Eosinophils | performed at [facility];[address] | | LAB | | | | [address];[place] | | | | | | [address] | | | | + + + + + + | % Basophils | 0.1Comment: Testing | % | EXTERNAL | | | | performed at [facility];[address] | | LAB | | | | [address];[place] | | | | | | [address] | | | | + + + + + + | Absolute | 11.3 (H)Comment: Testing | 1.9 - 7.4 K/uL | EXTERNAL | | | Segmented | performed at [facility];[address] | | LAB | | | Neutrophils | [address];[place] | | | | | | [address] | | | | + + + + + + | Absolute | 2.6Comment: Testing | 1.0 - 3.9 K/uL | EXTERNAL | | | Lymphocytes | performed at [facility];[address] | | LAB | | | | [address];[place] | | | | | | [address] | | | | + + + + + + | Absolute | 1.1 (H)Comment: Testing | 0 - 0.8 K/uL | EXTERNAL | | | Monocytes | performed at [facility];[address] | | LAB | | | | [address];[place] | | | | | | [address] | | | | + + + + + + | Absolute | 0.2Comment: Testing | 0 - 0.5 K/uL | EXTERNAL | | | Eosinophils | performed at [facility];[address] | | LAB | | | | [address];[place] | | | | | | [address] | | | | + + + + + + | Absolute | 0.0Comment: Testing | 0 - 0.1 K/uL | EXTERNAL | | | Basophils | performed at [facility];[address] | | LAB | | | | [address];[place], [place] | | | | | | [address] | | | | + + + [...] EXTERNAL | | | | performed at [facility];[address] | | LAB | | | | [address];[place] | | | | | | [address] | | | | + + + + + + | RED CELL | 4.00Comment: Testing | 3.70 - 5.10 | EXTERNAL | | | COUNT | performed at [facility];[address] | M/uL | LAB | | | | [address];[place] | | | | | | [address] | | | | + + + + + + | Hgb | 12.3Comment: Testing | 11.3 - 15.5 | EXTERNAL | | | | performed at [facility];[address] | g/dL | LAB | | | | [address];[place] | | | | | | [address] | | | | + + + + + + | Hematocrit, | 35.8Comment: Testing | 34.0 - 46.0 % | EXTERNAL | | | POC | performed at [facility];[address] | | LAB | | | | [address];[place] | | | | | | [address] | | | | + + + + + + | MCV | 89.7Comment: Testing | 80.0 - 100.0 fl | EXTERNAL | | | | performed at [facility];[address] | | LAB | | | | [address];[place] | | | | | | [address] | | | | + + + + + + | MCH | 30.9Comment: Testing | 27.0 - 34.0 pg | EXTERNAL | | | | performed at [facility];[address] | | LAB | | | | [address];[place] | | | | | | [address] | | | | + + + + + + | MCHC | 34.4Comment: Testing | 32.0 - 35.5 | EXTERNAL | | | | performed at [facility];[address] | g/dL | LAB | | | | [address];[place] | | | | | | [address] | | | | + + + + + + | RDW-CV | 42.4Comment: Testing | 37 - 53 fl | EXTERNAL | | | | performed at [facility];[address] | | LAB | | | | [address];[place] | | | | | | [address] | | | | + + + + + + | Platelet | 212Comment: Testing | 150 - 400 K/uL | EXTERNAL | | | Count | performed at [facility];[address] | | LAB | | | Plasma | [address];[place] | | | | | | [address] | | | | + + + + + + | MPV | 8.7Comment: Testing | fl | EXTERNAL | | | | performed at [facility];[address] | | LAB | | | | [address];[place] | | | | | | [address] | | | | + + + + + + | Differentia | AUTOMATEDComment: | | EXTERNAL | | | l Type | Testing performed at | | LAB | | | | [facility];[address] | | [address];[place] [address] | | | | + + + + + + | % Segmented | 68.0Comment: Testing | % | EXTERNAL | | | | performed at [facility];[address] | | LAB | | | Neutrophils | [address];[place] | | | | | | [address] | | | | + + + + + + | % | 23.0Comment: Testing | % | EXTERNAL | | | Lymphocytes | performed at [facility];[address] | | LAB | | | | [address];[place] | | | | | | [address] | | | | + + + + + + | % Monocytes | 6.9Comment: Testing | % | EXTERNAL | | | | performed at [facility];[address] | | LAB | | | | [address];[place] | | | | | | [address] | | | | + + + + + + | % | 1.7Comment: Testing | % | EXTERNAL | | | Eosinophils | performed at [facility];[address] | | LAB | | | | [address];[place] | | | | | | [address] | | | | + + + + + + | % Basophils | 0.4Comment: Testing | % | EXTERNAL | | | | performed at [facility];[address] | | LAB | | | | [address];[place] | | | | | | [address] | | | | + + + + + + | Absolute | 9.1 (H)Comment: Testing | 1.9 - 7.4 K/uL | EXTERNAL | | | Segmented | performed at [facility];[address] | | LAB | | | Neutrophils | [address];[place] | | | | | | [address] | | | | + + + + + + | Absolute | 3.1Comment: Testing | 1.0 - 3.9 K/uL | EXTERNAL | | | Lymphocytes | performed at [facility];[address] | | LAB | | | | [address];[place] | | | | | | [address] | | | | + + + + + + | Absolute | 0.9 (H)Comment: Testing | 0 - 0.8 K/uL | EXTERNAL | | | Monocytes | performed at [facility];[address] | | LAB | | | | [address];[place] | | | | | | [address] | | | | + + + + + + | Absolute | 0.2Comment: Testing | 0 - 0.5 K/uL | EXTERNAL | | | Eosinophils | performed at [facility];[address] | | LAB | | | | [address];[place] | | | | | | [address] | | | | + + + + + + | Absolute | 0.1Comment: Testing | 0 - 0.1 K/uL | EXTERNAL | | | Basophils | performed at [facility];[address] | | LAB | | | | [address];[place] | | | | | | [address] | | | | + + + [...] EXTERNAL | | | | performed at [facility];[address] | | LAB | | | | [address];[place] | | | | | | [address] | | | | + + + [...] EXTERNAL | | | | performed at [facility], [address] | | LAB | | | | [address], | | | | | | [place] [address] | | | | + + + + + + | RED CELL | 4.04Comment: Testing | 3.70 - 5.10 | EXTERNAL | | | COUNT | performed at [facility], [address] | M/uL | LAB | | | | [address], | | | | | | [place] [address] | | | | + + + + + + | Hgb | 12.8Comment: Testing | 11.3 - 15.5 | EXTERNAL | | | | performed at [facility], [address] | g/dL | LAB | | | | [address], | | | | | | [place] [address] | | | | + + + + + + | Hematocrit, | 37.0Comment: Testing | 34.0 - 46.0 % | EXTERNAL | | | POC | performed at [facility], [address] | | LAB | | | | [address], | | | | | | [place] [address] | | | | + + + + + + | MCV | 91.7Comment: Testing | 80.0 - 100.0 fl | EXTERNAL | | | | performed at [facility], [address] | | LAB | | | | [address], | | | | | | [place] [address] | | | | + + + + + + | MCH | 31.8Comment: Testing | 27.0 - 34.0 pg | EXTERNAL | | | | performed at [facility], [address] | | LAB | | | | [address], | | | | | | [place] [address] | | | | + + + + + + | MCHC | 34.6Comment: Testing | 32.0 - 35.5 | EXTERNAL | | | | performed at [facility], [address] | g/dL | LAB | | | | [address], | | | | | | [place] [address] | | | | + + + + + + | RDW-CV | 42.4Comment: Testing | 37 - 53 fl | EXTERNAL | | | | performed at [facility], [address] | | LAB | | | | [address], | | | | | | [place] [address] | | | | + + + + + + | Platelet | 243Comment: Testing | 150 - 400 K/uL | EXTERNAL | | | Count | performed at [facility], [address] | | LAB | | | Plasma | [address], | | | | | | [place] [address] | | | | + + + + + + | MPV | 9.2Comment: Testing | fl | EXTERNAL | | | | performed at [facility], [address] | | LAB | | | | [address], | | | | | | [place] [address] | | | | + + + + + + | Differentia | AUTOMATEDComment: | | EXTERNAL | | | l Type | Testing performed at | | LAB | | | | [facility], [address] | | | | | | [place] | | | | | | [address] | | | | + + + + + + | % Segmented | 69.4Comment: Testing | % | EXTERNAL | | | | performed at [facility], [address] | | LAB | | | Neutrophils | [address], | | | | | | [place] [address] | | | | + + + + + + | % | 22.2Comment: Testing | % | EXTERNAL | | | Lymphocytes | performed at [facility], [address] | | LAB | | | | [address], | | | | | | [place] [address] | | | | + + + + + + | % Monocytes | 6.7Comment: Testing | % | EXTERNAL | | | | performed at [facility], [address] | | LAB | | | | [address], | | | | | | [place] [address] | | | | + + + + + + | % | 1.4Comment: Testing | % | EXTERNAL | | | Eosinophils | performed at [facility], [address] | | LAB | | | | [address], | | | | | | [place] [address] | | | | + + + + + + | % Basophils | 0.3Comment: Testing | % | EXTERNAL | | | | performed at [facility], [address] | | LAB | | | | [address], | | | | | | [place] [address] | | | | + + + + + + | Absolute | 9.9 (H)Comment: Testing | 1.9 - 7.4 K/uL | EXTERNAL | | | Segmented | performed at [facility], [address] | | LAB | | | Neutrophils | [address], | | | | | | [place] [address] | | | | + + + + + + | Absolute | 3.2Comment: Testing | 1.0 - 3.9 K/uL | EXTERNAL | | | Lymphocytes | performed at [facility], [address] | | LAB | | | | [address], | | | | | | [place] [address] | | | | + + + + + + | Absolute | 0.9 (H)Comment: Testing | 0 - 0.8 K/uL | EXTERNAL | | | Monocytes | performed at [facility], [address] | | LAB | | | | [address], | | | | | | [place] [address] | | | | + + + + + + | Absolute | 0.2Comment: Testing | 0 - 0.5 K/uL | EXTERNAL | | | Eosinophils | performed at [facility], [address] | | LAB | | | | [address], | | | | | | [place] [address] | | | | + + + + + + | Absolute | 0.0Comment: Testing | 0 - 0.1 K/uL | EXTERNAL | | | Basophils | performed at [facility], [address] | | LAB | | | | [address], | | | | | | [place] [address] | | | | + + + [...] EXTERNAL | | | | performed at [facility], [facility] | | LAB | | | | [address], | | | | | | [place] [address] | | | | + + + + + + | RED CELL | 3.99Comment: Testing | 3.70 - 5.10 | EXTERNAL | | | COUNT | performed at [facility], [address] | M/uL | LAB | | | | [address], | | | | | | [place] [address] | | | | + + + + + + | Hgb | 12.6Comment: Testing | 11.3 - 15.5 | EXTERNAL | | | | performed at [facility], [address] | g/dL | LAB | | | | [address], | | | | | | [place] [address] | | | | + + + + + + | Hematocrit, | 36.8Comment: Testing | 34.0 - 46.0 % | EXTERNAL | | | POC | performed at [facility], [address] | | LAB | | | | [address], | | | | | | [place] [address] | | | | + + + + + + | MCV | 92.3Comment: Testing | 80.0 - 100.0 fl | EXTERNAL | | | | performed at [facility], [address] | | LAB | | | | [address], | | | | | | [place] [address] | | | | + + + + + + | MCH | 31.6Comment: Testing | 27.0 - 34.0 pg | EXTERNAL | | | | performed at [facility], [address] | | LAB | | | | [address], | | | | | | [place] [address] | | | | + + + + + + | MCHC | 34.2Comment: Testing | 32.0 - 35.5 | EXTERNAL | | | | performed at [facility], [address] | g/dL | LAB | | | | [address], | | | | | | [place] [address] | | | | + + + + + + | RDW-CV | 42.4Comment: Testing | 37 - 53 fl | EXTERNAL | | | | performed at [facility], [address] | | LAB | | | | [address], | | | | | | [place] [address] | | | | + + + + + + | Platelet | 243Comment: Testing | 150 - 400 K/uL | EXTERNAL | | | Count | performed at [facility], [address] | | LAB | | | Plasma | [address], | | | | | | [place] [address] | | | | + + + + + + | MPV | 9.4Comment: Testing | fl | EXTERNAL | | | | performed at [facility], [address] | | LAB | | | | [address], | | | | | | [place] [address] | | | | + + + + + + | Differentia | AUTOMATEDComment: | | EXTERNAL | | | l Type | Testing performed at | | LAB | | | | [facility], [address] | | | | | | [place] | | | | | | [address] | | | | + + + + + + | % Segmented | 71.3Comment: Testing | % | EXTERNAL | | | | performed at [facility], [address] | | LAB | | | Neutrophils | [address], | | | | | | [place] [address] | | | | + + + + + + | % | 21.0Comment: Testing | % | EXTERNAL | | | Lymphocytes | performed at [facility], [address] | | LAB | | | | [address], | | | | | | [place] [address] | | | | + + + + + + | % Monocytes | 6.2Comment: Testing | % | EXTERNAL | | | | performed at [facility], [address] | | LAB | | | | [address], | | | | | | [place] [address] | | | | + + + + + + | % | 1.4Comment: Testing | % | EXTERNAL | | | Eosinophils | performed at [facility], [address] | | LAB | | | | [address], | | | | | | [place] [address] | | | | + + + + + + | % Basophils | 0.1Comment: Testing | % | EXTERNAL | | | | performed at [facility], [address] | | LAB | | | | [address], | | | | | | [place] [address] | | | | + + + + + + | Absolute | 10.7 (H)Comment: Testing | 1.9 - 7.4 K/uL | EXTERNAL | | | Segmented | performed at [facility], [address] | | LAB | | | Neutrophils | [address], | | | | | | [place] [address] | | | | + + + + + + | Absolute | 3.2Comment: Testing | 1.0 - 3.9 K/uL | EXTERNAL | | | Lymphocytes | performed at [facility], [address] | | LAB | | | | [address], | | | | | | [place] [address] | | | | + + + + + + | Absolute | 0.9 (H)Comment: Testing | 0 - 0.8 K/uL | EXTERNAL | | | Monocytes | performed at [facility], [address] | | LAB | | | | [address], | | | | | | [place] [address] | | | | + + + + + + | Absolute | 0.2Comment: Testing | 0 - 0.5 K/uL | EXTERNAL | | | Eosinophils | performed at [facility], [address] | | LAB | | | [address], | | | | | | [place] [address] | | | | + + + + + + | Absolute | 0.0Comment: Testing | 0 - 0.1 K/uL | EXTERNAL | | | Basophils | performed at [facility], [address] | | LAB | | | | [address], | | | | | | [place] [address] | | | | + + + [...] EXTERNAL | | | | performed at [facility];[address] | | LAB | | | | [address];[place] | | | | | | [address] | | | | + + + + + + | RED CELL | 3.82Comment: Testing | 3.70 - 5.10 | EXTERNAL | | | COUNT | performed at [facility];[address] | M/uL | LAB | | | | [address];[place] | | | | | | [address] | | | | + + + + + + | Hgb | 12.0Comment: Testing | 11.3 - 15.5 | EXTERNAL | | | | performed at [facility];888 | g/dL | LAB | | | | [address];[place] | | | | | | [address] | | | | + + + + + + | Hematocrit, | 34.3Comment: Testing | 34.0 - 46.0 % | EXTERNAL | | | POC | performed at [facility];[address] | | LAB | | | | [address];[place] | | | | | | [address] | | | | + + + + + + | MCV | 89.8Comment: Testing | 80.0 - 100.0 fl | EXTERNAL | | | | performed at [facility];[address] | | LAB | | | | [address];[place] | | | | | | [address] | | | | + + + + + + | MCH | 31.5Comment: Testing | 27.0 - 34.0 pg | EXTERNAL | | | | performed at [facility];[address] | | LAB | | | | [address];[place] | | | | | | [address] | | | | + + + + + + | MCHC | 35.1Comment: Testing | 32.0 - 35.5 | EXTERNAL | | | | performed at [facility];888 | g/dL | LAB | | | | [address];[place] | | | | | | [address] | | | | + + + + + + | RDW-CV | 42.0Comment: Testing | 37 - 53 fl | EXTERNAL | | | | performed at [facility];[address] | | LAB | | | | [address];[place] | | | | | | [address] | | | | + + + + + + | Platelet | 190Comment: Testing | 150 - 400 K/uL | EXTERNAL | | | Count | performed at [facility];[address] | | LAB | | | Plasma | [address];[place] | | | | | | [address] | | | | + + + + + + | MPV | 8.7Comment: Testing | fl | EXTERNAL | | | | performed at [facility];[address] | | LAB | | | | [address];[place] | | | | | | [address] | | | | + + + + + + | Differentia | AUTOMATEDComment: | | EXTERNAL | | | l Type | Testing performed at | | LAB | | | | [facility];[address] | | [address];[place] [address] | | | | + + + + + + | % Segmented | 67.2Comment: Testing | % | EXTERNAL | | | | performed at [facility];[address] | | LAB | | | Neutrophils | [address];[place] | | | | | | [address] | | | | + + + + + + | % | 23.6Comment: Testing | % | EXTERNAL | | | Lymphocytes | performed at [facility];[address] | | LAB | | | | [address];[place] | | | | | | [address] | | | | + + + + + + | % Monocytes | 7.8Comment: Testing | % | EXTERNAL | | | | performed at [facility];[address] | | LAB | | | | [address];[place] | | | | | | [address] | | | | + + + + + + | % | 1.1Comment: Testing | % | EXTERNAL | | | Eosinophils | performed at [facility];[address] | | LAB | | | | [address];[place] | | | | | | [address] | | | | + + + + + + | % Basophils | 0.3Comment: Testing | % | EXTERNAL | | | | performed at [facility];[address] | | LAB | | | | [address];[place] | | | | | | [address] | | | | + + + + + + | Absolute | 8.3 (H)Comment: Testing | 1.9 - 7.4 K/uL | EXTERNAL | | | Segmented | performed at [facility];[address] | | LAB | | | Neutrophils | [address];[place] | | | | | | [address] | | | | + + + + + + | Absolute | 2.9Comment: Testing | 1.0 - 3.9 K/uL | EXTERNAL | | | Lymphocytes | performed at [facility];[address] | | LAB | | | | [address];[place] | | | | | | [address] | | | | + + + + + + | Absolute | 1.0 (H)Comment: Testing | 0 - 0.8 K/uL | EXTERNAL | | | Monocytes | performed at [facility];[address] | | LAB | | | | [address];[place] | | | | | | [address] | | | | + + + + + + | Absolute | 0.1Comment: Testing | 0 - 0.5 K/uL | EXTERNAL | | | Eosinophils | performed at [facility];[address] | | LAB | | | | [address];[place] | | | | | | [address] | | | | + + + + + + | Absolute | 0.0Comment: Testing | 0 - 0.1 K/uL | EXTERNAL | | | Basophils | performed at [facility];[address] | | LAB | | | | [address];[place], [place] | | | | | | [address] | | | | + + + [...] | | | | | [place] [address] | | | | + + + + + + | RED CELL | 3.57 (L)Comment: Testing | 3.70 - 5.10 | EXTERNAL | | | COUNT | performed at [facility], [address] | M/uL | LAB | | | | [address], | | | | | | [place] [address] | | | | + + + + + + | Hgb | 11.2 (L)Comment: Testing | 11.3 - 15.5 | EXTERNAL | | | | performed at [facility], [address] | g/dL | LAB | | | | [address], | | | | | | [place] [address] | | | | + + + + + + | Hematocrit, | 32.8 (L)Comment: Testing | 34.0 - 46.0 % | EXTERNAL | | | POC | performed at [facility], [address] | | LAB | | | | [address], | | | | | | [place] [address] | | | | + + + + + + | MCV | 92.0Comment: Testing | 80.0 - 100.0 fl | EXTERNAL | | | | performed at [facility], [address] | | LAB | | | | [address], | | | | | | [place] [address] | | | | + + + + + + | MCH | 31.3Comment: Testing | 27.0 - 34.0 pg | EXTERNAL | | | | performed at [facility], [address] | | LAB | | | | [address], | | | | | | [place] [address] | | | | + + + + + + | MCHC | 34.0Comment: Testing | 32.0 - 35.5 | EXTERNAL | | | | performed at [facility], [address] | g/dL | LAB | | | | [address], | | | | | | [place] [address] | | | | + + + + + + | RDW-CV | 43.8Comment: Testing | 37 - 53 fl | EXTERNAL | | | | performed at [facility], [address] | | LAB | | | | [address], | | | | | | [place] [address] | | | | + + + + + + | Platelet | 180Comment: Testing | 150 - 400 K/uL | EXTERNAL | | | Count | performed at [facility], [address] | | LAB | | | Plasma | [address], | | | | | | [place], [place] [address] | | | | + + + + + + | MPV | 9.3Comment: Testing | fl | EXTERNAL | | | | performed at [facility], [address] | | LAB | | | | [address], | | | | | | [place] [address] | | | | + + + + + + | Differentia | MANUALComment: Testing | | EXTERNAL | | | l Type | performed at [facility], [address] | | LAB | | | | [address], | | | | | | [place] [address] | | | | + + + + + + | Segmented | 63Comment: Testing | % | EXTERNAL | | | Neutrophils | performed at [facility], [address] | | LAB | | | Manual | [address], | | | | | | [place] [address] | | | | + + + + + + | % Bands | 8Comment: Testing | % | EXTERNAL | | | | performed at [facility], [address] | | LAB | | | | [address], | | | | | | [place] [address] | | | | + + + + + + | Lymphocytes | 21Comment: Testing | % | EXTERNAL | | | Manual | performed at [facility], [address] | | LAB | | | | [address], | | | | | | [place] [address] | | | | + + + + + + | Monocytes | 8Comment: Testing | % | EXTERNAL | | | Manual | performed at [facility], [address] | | LAB | | | | [address], | | | | | | [place] [address] | | | | + + + + + + | Absolute | 7.5 (H)Comment: Testing | 1.9 - 7.4 K/uL | EXTERNAL | | | Neutrophils | performed at [facility], [address] | | LAB | | | | [address], | | | | | | [place] [address] | | | | + + + + + + | Bands | 1.0 (H)Comment: Testing | 0 - 0.2 K/uL | EXTERNAL | | | Manual | performed at [facility], [address] | | LAB | | | | [address], | | | | | | [place] [address] | | | | + + + + + + | Absolute | 2.5Comment: Testing | 1.0 - 3.9 K/uL | EXTERNAL | | | Lymphocytes | performed at [facility], [address] | | LAB | | | | [address], | | | | | | [place] [address] | | | | + + + + + + | Absolute | 1.0 (H)Comment: Testing | 0 - 0.8 K/uL | EXTERNAL | | | Monocytes | performed at [facility], [address] | | LAB | | | | [facility], | | | | | | [place] [address] | | | | + + + + + + | RBC | NORMAL PLT MORPHComment: | | EXTERNAL | | | Morphology | NORMAL RBC MORPHTesting | | LAB | | | | performed at [facility], [address] | | | | | | [address] [facility], | | | | | | [place] [address] | | | | + + + [...] EXTERNAL | | | | performed at [facility], [address] | | LAB | | | | [address], | | | | | | [place] [address] | | | | + + + + + + | RED CELL | 3.55 (L)Comment: Testing | 3.70 - 5.10 | EXTERNAL | | | COUNT | performed at [facility], [address] | M/uL | LAB | | | | [address], | | | | | | [place] [address] | | | | + + + + + + | Hgb | 11.2 (L)Comment: Testing | 11.3 - 15.5 | EXTERNAL | | | | performed at [facility], [address] | g/dL | LAB | | | | [address], | | | | | | [place] [address] | | | | + + + + + + | Hematocrit, | 32.5 (L)Comment: Testing | 34.0 - 46.0 % | EXTERNAL | | | POC | performed at [facility], [address] | | LAB | | | | [address], | | | | | | [place] [address] | | | | + + + + + + | MCV | 91.5Comment: Testing | 80.0 - 100.0 fl | EXTERNAL | | | | performed at [facility], [address] | | LAB | | | | [address], | | | | | | [place] [address] | | | | + + + + + + | MCH | 31.5Comment: Testing | 27.0 - 34.0 pg | EXTERNAL | | | | performed at [facility], [address] | | LAB | | | | [address], | | | | | | [place] [address] | | | | + + + + + + | MCHC | 34.4Comment: Testing | 32.0 - 35.5 | EXTERNAL | | | | performed at [facility], [address] | g/dL | LAB | | | | [address], | | | | | | [place] [address] | | | | + + + + + + | RDW-CV | 42.0Comment: Testing | 37 - 53 fl | EXTERNAL | | | | performed at [facility], [address] | | LAB | | | | [address], | | | | | | [place] [address] | | | | + + + + + + | Platelet | 178Comment: Testing | 150 - 400 K/uL | EXTERNAL | | | Count | performed at [facility], [address] | | LAB | | | Plasma | [address], | | | | | | [place] [address] | | | | + + + + + + | MPV | 9.8Comment: Testing | fl | EXTERNAL | | | | performed at [facility], [address] | | LAB | | | | [address], | | | | | | [place] [address] | | | | + + + + + + | Differentia | MANUALComment: Testing | | EXTERNAL | | | l Type | performed at [facility], [address] | | LAB | | | | [address], | | | | | | [place] [address] | | | | + + + + + + | Segmented | 88Comment: Testing | % | EXTERNAL | | | Neutrophils | performed at [facility], [address] | | LAB | | | Manual | [address], | | | | | | [place] [address] | | | | + + + + + + | % Bands | 2Comment: Testing | % | EXTERNAL | | | | performed at [facility], [address] | | LAB | | | | [address], | | | | | | [place] [address] | | | | + + + + + + | Lymphocytes | 6Comment: Testing | % | EXTERNAL | | | Manual | performed at [facility], [address] | | LAB | | | | [address], | | | | | | [place] [address] | | | | + + + + + + | Monocytes | 4Comment: Testing | % | EXTERNAL | | | Manual | performed at [facility], [address] | | LAB | | | | [address], | | | | | | [place] [address] | | | | + + + + + + | Absolute | 12.3 (H)Comment: Testing | 1.9 - 7.4 K/uL | EXTERNAL | | | Neutrophils | performed at [facility], [address] | | LAB | | | | [address], | | | | | | [place] [address] | | | | + + + + + + | Bands | 0.3 (H)Comment: Testing | 0 - 0.2 K/uL | EXTERNAL | | | Manual | performed at [facility], [address] | | LAB | | | | [address], | | | | | | [place] [address] | | | | + + + + + + | Absolute | 0.8 (L)Comment: Testing | 1.0 - 3.9 K/uL | EXTERNAL | | | Lymphocytes | performed at [facility], [address] | | LAB | | | | [address], | | | | | | [place] [address] | | | | + + + + + + | Absolute | 0.6Comment: Testing | 0 - 0.8 K/uL | EXTERNAL | | | Monocytes | performed at [facility], [address] | | LAB | | | | [address], | | | | | | [place] [address] | | | | + + + + + + | RBC | NORMAL RBC MORPHComment: | | EXTERNAL | | | Morphology | NORMAL PLT MORPHTesting | | LAB | | | | performed at [facility], [address] | | | | | | [address], | | | | | | [place] [address] | | | | + + + [...] EXTERNAL | | | | performed at [facility], [facility] | | LAB | | | | [address], | | | | | | [place] [address] | | | | + + + + + + | RED CELL | 3.83Comment: Testing | 3.70 - 5.10 | EXTERNAL | | | COUNT | performed at [facility], [address] | M/uL | LAB | | | | [address], | | | | | | [place], [place] [address] | | | | + + + + + + | Hgb | 12.2Comment: Testing | 11.3 - 15.5 | EXTERNAL | | | | performed at [facility], [address] | g/dL | LAB | | | | [address], | | | | | | [place] [address] | | | | + + + + + + | Hematocrit, | 34.8Comment: Testing | 34.0 - 46.0 % | EXTERNAL | | | POC | performed at [facility], [address] | | LAB | | | | [address], | | | | | | [place] [address] | | | | + + + + + + | MCV | 90.9Comment: Testing | 80.0 - 100.0 fl | EXTERNAL | | | | performed at [facility], [address] | | LAB | | | | [address], | | | | | | [place] [address] | | | | + + + + + + | MCH | 31.9Comment: Testing | 27.0 - 34.0 pg | EXTERNAL | | | | performed at [facility], [address] | | LAB | | | | [address], | | | | | | [place] [address] | | | | + + + + + + | MCHC | 35.0Comment: Testing | 32.0 - 35.5 | EXTERNAL | | | | performed at [facility], [address] | g/dL | LAB | | | | [address], | | | | | | [place] [address] | | | | + + + + + + | RDW-CV | 41.1Comment: Testing | 37 - 53 fl | EXTERNAL | | | | performed at [facility], [address] | | LAB | | | | [address], | | | | | | [place] [address] | | | | + + + + + + | Platelet | 206Comment: Testing | 150 - 400 K/uL | EXTERNAL | | | Count | performed at [facility], [address] | | LAB | | | Plasma | [address], | | | | | | [place] [address] | | | | + + + + + + | MPV | 9.8Comment: Testing | fl | EXTERNAL | | | | performed at [facility], [address] | | LAB | | | | [address], | | | | | | [place] [address] | | | | + + + + + + | Differentia | MANUALComment: Testing | | EXTERNAL | | | l Type | performed at [facility], [address] | | LAB | | | | [address], | | | | | | [place] [address] | | | | + + + + + + | Segmented | 85Comment: Testing | % | EXTERNAL | | | Neutrophils | performed at [facility], [address] | | LAB | | | Manual | [address], | | | | | | [place], [place] [address] | | | | + + + + + + | % Bands | 4Comment: Testing | % | EXTERNAL | | | | performed at [facility], [address] | | LAB | | | | [address], | | | | | | [place] [address] | | | | + + + + + + | Lymphocytes | 7Comment: Testing | % | EXTERNAL | | | Manual | performed at [facility], [address] | | LAB | | | | [address], | | | | | | [place] [address] | | | | + + + + + + | Monocytes | 4Comment: Testing | % | EXTERNAL | | | Manual | performed at [facility], [address] | | LAB | | | | [address], | | | | | | [place] [address] | | | | + + + + + + | Absolute | 11.1 (H)Comment: Testing | 1.9 - 7.4 K/uL | EXTERNAL | | | Neutrophils | performed at [facility], [address] | | LAB | | | | [address], | | | | | | [place] [address] | | | | + + + + + + | Bands | 0.5 (H)Comment: Testing | 0 - 0.2 K/uL | EXTERNAL | | | Manual | performed at [facility], [address] | | LAB | | | | [address], | | | | | | [place] [address] | | | | + + + + + + | Absolute | 0.9 (L)Comment: Testing | 1.0 - 3.9 K/uL | EXTERNAL | | | Lymphocytes | performed at [facility], [address] | | LAB | | | [address], | | | | | | [place] [address] | | | | + + + + + + | Absolute | 0.5Comment: Testing | 0 - 0.8 K/uL | EXTERNAL | | | Monocytes | performed at [facility], [address] | | LAB | | | | [address], | | | | | | [place] [address] | | | | + + + + + + | RBC | RBC AND PLT MORPHOLOGY | | EXTERNAL | | | Morphology | APPEAR NORMALComment: | | LAB | | | | Testing performed at | | | | | | [facility], [address] | | | | | | [address], [place] | | | | | | [address] | | | | + + + [...] | | | | | [place] [address] | | | | + + + + + + | K | 3.9Comment: Testing | 3.5 - 4.9 | EXTERNAL | | | | performed at [facility], [address] | mmol/L | LAB | | | | [address], | | | | | | [place] [address] | | | | + + + + + + | Cl | 105Comment: Testing | 99 - 109 mmol/L | EXTERNAL | | | | performed at [facility], [address] | | LAB | | | | [address], | | | | | | [place] [address] | | | | + + + + + + | CO2 | 22 (L)Comment: Testing | 23 - 32 mmol/L | EXTERNAL | | | | performed at [facility], [address] | | LAB | | | | [address], | | | | | | [place] [address] | | | | + + + + + + | Anion Gap | 8Comment: Testing | 5 - 20 mmol/L | EXTERNAL | | | | performed at [facility], [address] | | LAB | | | | [address], | | | | | | [place] [address] | | | | + + + + + + | Glucose, | 151 (H)Comment: Testing | 65 - 99 mg/dL | EXTERNAL | | | Fasting | performed at [facility], [address] | | LAB | | | | [address], | | | | | | [place] [address] | | | | + + + + + + | BUN | 7 (L)Comment: Testing | 8 - 25 mg/dL | EXTERNAL | | | | performed at [facility], [address] | | LAB | | | | [address], | | | | | | [place] [address] | | | | + + + + + + | Creatinine | 0.43 (L)Comment: Testing | 0.50 - 1.00 | EXTERNAL | | | | performed at [facility], [address] | mg/dL | LAB | | | | [address], | | | | | | [place] [address] | | | | + + + + + + | BUN/Creatin | 16Comment: Testing | | EXTERNAL | | | ine Ratio | performed at [facility], [address] | | LAB | | | | [address], | | | | | | [place] [address] | | | | + + + + + + | Calcium | 7.5 (L)Comment: NOTE NEW | 8.5 - 10.5 | EXTERNAL | | | | REFERENCE RANGETesting | mg/dL | LAB | | | | performed at [facility], [address] | | | | | | [address], | | | | | | [place] [address] | | | | + + + + + + | Protein, | 5.8 (L)Comment: Testing | 6.3 - 8.2 g/dL | EXTERNAL | | | Total | performed at [facility], [address] | | LAB | | | [address], | | | | | | [place] [address] | | | | + + + + + + | Albumin | 2.9 (L)Comment: Testing | 3.6 - 5.0 g/dL | EXTERNAL | | | | performed at [facility], [address] | | LAB | | | | [address], | | | | | | [place] [address] | | | | + + + + + + | Globulin | 2.9Comment: Testing | 1.3 - 4.9 g/dL | EXTERNAL | | | | performed at [facility], [address] | | LAB | | | | [address], | | | | | | [place] [address] | | | | + + + + + + | A/G Ratio | 1.0Comment: Testing | 1.0 - 2.4 | EXTERNAL | | | | performed at [facility], [address] | | LAB | | | | [address], | | | | | | [place] [address] | | | | + + + + + + | Bilirubin | 0.3Comment: Testing | 0.1 - 1.5 mg/dL | EXTERNAL | | | Total | performed at [facility], [address] | | LAB | | | | [address], | | | | | | [place] [address] | | | | + + + + + + | ALP, | 93Comment: Testing | 35 - 115 U/L | EXTERNAL | | | External | performed at [facility], [address] | | LAB | | | | [address], | | | | | | [place] [address] | | | | + + + + + + | AST | 18Comment: Testing | 10 - 45 U/L | EXTERNAL | | | | performed at [facility], [address] | | LAB | | | | [address], | | | | | | [place] [address] | | | | + + + + + + | ALT | 10Comment: Testing | 10 - 65 U/L | EXTERNAL | | | | performed at [facility], [address] | | LAB | | | | [address], | | | | | | [place] [address] | | | | + + + [...] | | | | | | at [facility], [address] | | | | | | [facility], | | | | | | [place] [address] | | | | + + + [...] | | | | | performed at [facility];[address] | | | | | | [address];[place] | | | | | | [address] | | | | + + + [...] ISOLATED Testing | | | performed at [facility], [address] [facility] [place] [address] | | + + + + +---------+ [...]
--- OUTSIDE RECORDS SUMMARY | ~2019-01-23 | XMS | Clinical Summary ---
Demographics + + + | Address | [address] | | | [place] [address] | + + + | Home Phone | | + + + | Preferred Language | Unknown | + + + | Marital Status | Single | + + + | Buddhism Affiliation | 1077 | + + + | Race | Unknown | + + + | Ethnic Group | Unknown | + + + Author + + + | Author | [facility] | | | and [place] | + + + | Organization | [facility] | | | [...] Team Providers + +------+ + | Care International Manager Name | Role | Phone | + [...]
--- OUTSIDE RECORDS SUMMARY | ~2019-01-23 | XMS | Encounter Summary ---
Demographics + + + | Address | [address] | | | [place] [address] | + + + | Home Phone | | + + + | Preferred Language | Unknown | + + + | Marital Status | Single | + + + | Scientologist Affiliation | Unknown | + + + | Race | Unknown | + + + | Ethnic Group | Not or | + + + Author + + + | Author | [facility] | + + + | Organization | [facility] | + + + | Address | Unknown | + + + | Phone | Unavailable | + + + Support + + +---------+ + | Name | Relationship | Address | Phone | + + +---------+ + | Carlita Nawaf | ECON | Unknown | | + + +---------+ + Care Team Providers + +------+ + | Care Power Saw Operator Name | Role | Phone | + [...] | Dizziness | [address] | [address] [place], | | | | | and | Rd | [place] | | | | | giddiness | [place], [place] | [address] | | | | | Procedures | [address] | | | | | | CONSULT TO | Phone: | | | | | | NEUROLOGY | [phone] | | | | | | | Fax: | | | | | | | [phone] | | +--------+--------+ + + + + [...] | | [facility] [address] | [address] | | | | | [address] | [place], [place] | | | | | Mailcode: PV01 | [phone] | | | | | [facility] | [phone] | | | | | [place], [place] | | | | | | [address] | | | | | | [phone] | | | +--------+---------+ + + + [...] months ago at a youth conference in [place], not otherwise ill. She has headache before [...] Frenzel lenses. Normal head thrust. N ormal iomgkz-[id number], wwzr-pz-eknv, and rapid alternating motion. Negative Hallpike. Negativ [...] Dr. Silvino Porter in neurology here at [facility].Electronically signed by Marina cobos 07/21/2007 10:37 AM [...]
--- OUTSIDE RECORDS SUMMARY | ~2019-01-23 | XMS | Encounter Summary ---
Demographics + + + | Address | [address] | | | [place] [address] | + + + | Home Phone [...] + + + | Author | [facility] | + + + | Organization | [facility] | + + + | Address | Unknown | + + + | Phone | Unavailable | + + + Support + + +---------+ + | Name | Relationship | Address | Phone | + + +---------+ + | Carlita Nawaf | ECON | Unknown | | + + +---------+ + Care Team Providers + +------+ + | Care Laser Operator Name | Role | Phone | [...] and counseling | | | | [facility] | [place], [place] | | | | | [address] | [address] | | | | | Lesa Castillo Mailcode: | [phone] | | | | | [address] | | | | | | [place], [place] | | | | | | [address] | | | | | | [phone] | | | +--------+ + + + [...]
--- OUTSIDE RECORDS SUMMARY | ~2019-01-23 | XMS | Encounter Summary ---
Demographics + + + | Address | [address] | | | [place] [address] | + + + | Home Phone | | + + + | Preferred Language | Unknown | + + + | Marital Status | Single | + + + | Jehovah'S Witness Affiliation | Unknown | + + + | Race | Unknown | + + + | Ethnic Group | Not or | + + + Author + + + | Author | [facility] | + + + | Organization | [facility] | + + + | Address | Unknown | + + + | Phone | Unavailable | + + + Support + + +---------+ + | Name | Relationship | Address | Phone | + + +---------+ + | Carlita Nawaf | ECON | Unknown | | + + +---------+ + Care Team Providers + +------+ + | Care Desktop Architect Name | Role | Phone | [...] | | | | [facility] | [place], [place] | | | | | [address] | [address] | | | | | Lesa Castillo Mailcode: | [phone] | | | | | [address] | | | | | | [place], [place] | | | | | | [address] | | | | | | [phone] | | | +--------+ + + + [...] + + + | [facility] | [address] [facility] | [place], [place] | | | | | [address] | | + + + + + [...] Lab) [facility] | | | [place] [address] | | | [place] [address] | | + + + + + + + + | Performing | Address | City/State/Zipcode | Phone Number | | Organization | | | | + + + + + | [facility] | [address] | [place] [address] | | | LABORATORY | | | [...] [facility] ([facility]) | | | [facility] [address] [facility] | | | [place] [address] | | + + + + + + + + | Performing | Address | City/State/Zipcode | Phone Number | | Organization | | | | + + + + + | [facility] | [address] | [place] [address] | | | LABORATORY | | | | + + + + + documented in this encounter Visit Diagnoses + + | Diagnosis | + + | Abnormal laboratory test - Primary Other abnormal clinical finding | + + documented in this encounter"
--- OUTSIDE RECORDS SUMMARY | ~2019-01-23 | XMS | Clinical Summary ---
Demographics + + + | Address | [address] | | | [place] [address] | + + + | Home Phone | | + + + | Preferred Language | Unknown | + + + | Marital Status | Single | + + + | Anabaptism Affiliation | 1077 | + + + | Race | Unknown | + + + | Ethnic Group | Unknown | + + + Author + + + | Author | [facility] (Historical as of | | | 10-08-18) | + + + | Organization | [facility] (Historical as of | | | 10-08-18) | + + + | Address | Unknown | + + + | Phone | Unavailable | + + + Support + + +---------+ + | Name | Relationship | Address | Phone | + + +---------+ + | Chrystal Cote | ECON | Unknown | | + + +---------+ + | Carlita Mccracken | ECON | Unknown | | + + +---------+ + Care Team Providers + +------+ + | Care Screen Tacker Name | Role | Phone | + +------+ + | Pascale Alan | PP | | + +------+ + Allergies + + + + + + | Active Allergy | Reactions | Severity | Noted | Comments | | | | | Date | | + + + + + + | Amoxicillin | Hives | High | 03/19/19 | | | | | | 15 | | + + + + + + | Amoxicillin-Pot | Hives | High | 03/19/19 | | | Clavulanate | | | 15 | | + + + + + + Current Medications + + + +---------+------+------+-------+ | Prescription | Sig. | Disp. | Refills | Star | End | Statu | | | | | | t | Date | s | | | | | | Date | | | + + + +---------+------+------+-------+ | | Take by mouth. | | | | | Activ | | [id number]-[id number]-FA | | | | | | e | | ( #2 PO) | | | | | | | + + + +---------+------+------+-------+ | Breast Pump | Dispense and provide | 1 each | 0 | 02/0 | | Activ | | (medical terminologist) | instruction as | | | 8/20 | | e | | | needed. | | | 15 | | | + + + +---------+------+------+-------+ | docusate sodium | One po bid for stool | 60 | 0 | 02/1 | | Activ | | (COLACE) 100 MG | softening | capsule | | 0/20 | | e | | capsule | | | | 15 | | | + + + +---------+------+------+-------+ | FENUGREEK PO | Take 9 capsules by | | | | | Activ | | | mouth daily. | | | | | e | + + + +---------+------+------+-------+ | buPROPion | Take 1 tablet by | 30 | 11 | 02/2 | | Activ | | (WELLBUTRIN XL) 150 | mouth every morning. | tablet | | 6/20 | | e | | MG 24 hr tablet | | | | 15 | | | + + + +---------+------+------+-------+ Active Problems + + + | Problem | Noted Date | + + + | depression | 05/17/2014 | + + + | Hx of abnormal Pap smear | 05/17/2014 | + + + | premature rupture of membranes in third trimester, Mar 19 | 03/19/2014 | + + + Immunizations +------+ + + | Name | Dates Previously Given | Next Due | +------+ + + | Tdap | 03/22/2014 | | +------+ + + Social History + +-------+ +--------+------+ | Tobacco Use | Types | Packs/Day | Years | Date | | | | | Used | | + +-------+ +--------+------+ | Former Smoker | | | | | + +-------+ +--------+------+ + + +---------+ + | Alcohol Use | Drinks/We | oz/Week | Comments | | | ek | | | + + +---------+ + | No | | | | + + +---------+ + + + + | Sex Assigned at | Date Recorded | | | | + + + | Not on file | | + + + Last Filed Vital Signs + + + + | Vital Sign | Reading | Time Taken | + + + + | Blood Pressure | 120/64 | 05/17/2014 4:43 PM PDT | + + + + | Pulse | 89 | 04/03/2014 6:50 PM PST | + + + + | Temperature | 36.7 C (98.1 F) | 04/03/2014 6:50 PM PST | + + + + | Respiratory Rate | 20 | 04/03/2014 6:50 PM PST | + + + + | Oxygen Saturation | 98% | 04/01/2014 4:44 AM PST | + + + + | Inhaled Oxygen | - | - | | Concentration | | | + + + + | Weight | 84.4 kg (186 lb) | 05/17/2014 4:43 PM PDT | + + + + | Height | 170.2 cm (5' 7") | 05/17/2014 4:43 PM PDT | + + + + | Body Mass Index | 29.13 | 05/17/2014 4:43 PM PDT | + + + + Plan of Treatment [...] filefrom Last 3 Months Insurance + +--------+ +------+-------+ + | Payer | Benefi | Subscriber | Type | Phone | Address | | | t Plan | ID | | | | | | / | | | | | | | Group | | | | | + +--------+ +------+-------+ + | CIGNA | CIGNA | [id number] | | | | | | - | | | | | | | [place] | | | | | | | [place] | | | | | + +--------+ +------+-------+ + | PREMERA | PREMER | [id number] | | | [address] [address] | | | A BLUE | 9 | | | [place] | | | CARD | | | | [address] | + +--------+ +------+-------+ + | MEDICAID | MEDICA | [id number] | | | [address] | | | ID - | | | | [place] | | | [place] | | | | [phone] | + +--------+ +------+-------+ + + +--------+ +--------+ + + | Guarantor Name | Accoun | Relation to | Date | Phone | Billing Address | | | t Type | Patient | of | | | | | | | | | | + +--------+ +--------+ + + | NADIRA MCCRACKEN | Person | Self [birth year] | Home: | [address] | | | [place] | | 1990 | [phone] | [place] | | | [place] | | | [phone] | [phone] | + +--------+ +--------+ + +
--- OUTSIDE RECORDS SUMMARY | ~2019-01-23 | XMS | Encounter Summary ---
Demographics + + + | Address | [address] | | | [place] [address] | + + + | Home Phone | | + + + | Preferred Language | Unknown | + + + | Marital Status | Single | + + + | Yazidism Affiliation | Unknown | + + + | Race | Unknown | + + + | Ethnic Group | Not or | + + + Author + + + | Author | [facility] | + + + | Organization | [facility] | + + + | Address | Unknown | + + + | Phone | Unavailable | + + + Support + + +---------+ + | Name | Relationship | Address | Phone | + + +---------+ + | Carlita Nawaf | ECON | Unknown | | + + +---------+ + Care Team Providers + +------+ + | Care Clinical Exercise Physiologist Name | Role | Phone | + +------+ + | Sally Morales DO | PCP | | + +------+ + Encounter Details +--------+ + + + + | Date | Type | Department | Care Team | Description | +--------+ + + + + | 05/16/ | Ancillary | Registration [id number] | | | | 2007 | Reg[address] | [address] | | | | | [address] | [address] Mailcode: [id number] | | | | | | [place], [place] | | | | | | [address] | | | | | | [phone] | | | +--------+ + + + [...]
--- OUTSIDE RECORDS SUMMARY | ~2019-01-23 | XMS | Clinical Summary ---
Demographics + + + | Address | [address] | | | [place] [address] | + + + | Home Phone | | + + + | Preferred Language | Unknown | + + + | Marital Status | Single | + + + | Tenriism Affiliation | 1077 | + + + | Race | Unknown | + + + | Ethnic Group | Unknown | + + + Author + + + | Author | [facility] (Historical as of | | | 10-08-18) | + + + | Organization | [facility] (Historical as of | | | 10-08-18) [...] Team Providers + +------+ + | Care Customer Success Intern Name | Role | Phone | + [...] | | | | Activ | | [id number]-Upo-[id number]-FA | | | | | | e | | ( #2 PO) | | | | | | | + + + +---------+------+------+-------+ | Breast Pump | Dispense and provide | 1 each | 0 | 02/0 | | Activ | | (medical office receptionist) | instruction as | | | 8/20 [...] +------+-------+ + | CIGNA | CIGNA | [id number] | | | | | | - | | | | | | | [place] | | | | | | | [place] | | | | | + +--------+ +------+-------+ + | PREMERA | PREMER | [id number] | | | [address] [address] | | | A BLUE | 9 | | | [place] | | | CARD | | | | [address] | + +--------+ +------+-------+ + | MEDICAID | MEDICA | [id number] | | | [address] | | | ID - | | | | [place] | | | [place] | | | | [address] | + +--------+ +------+-------+ + + +--------+ [...] | | [place] | | 1990 | [phone] | [place] | | | [place] | | | [phone] | [address] | + +--------+ +--------+ + +
[~2019-01-23 19:05] MED LIST changes: +TOPROL XL25 MG PO; +ULTRAM50 MG PO; +XULANE PATCH1 EACH TD
[2019-01-23] MEDS ORDERED: PSEUDOEPHEDRINE60 MG PO (19:56)
== END 2019-01-23 20:17 | disposition home or self-care (01) ==
LOC: ED 19:05
DX: H65.92 Unspecified nonsuppurative otitis media, left ear (principal); F17.200 Nicotine dependence, unspecified, uncomplicated; Z88.0 Allergy status to penicillin; Z88.8 Allergy status to other drugs, medicaments and biological substances
CPT/HCPCS: 99282

== ENCOUNTER 2019-08-11 20:48 | Emergency (ER) | payer SELFPAY ==
[~2019-08-11] VITALS: Ht 170.2 cm; Wt 74.8 kg
[~2019-08-11 20:48] MED LIST changes: +PSEUDOEPHEDRINE60 MG PO
== END 2019-08-11 21:22 | disposition home or self-care (01) ==
LOC: ED 20:48
DX: N75.0 Cyst of Bartholin's gland (principal); F17.200 Nicotine dependence, unspecified, uncomplicated; Z88.0 Allergy status to penicillin; Z88.8 Allergy status to other drugs, medicaments and biological substances
CPT/HCPCS: 99282

== ENCOUNTER 2022-01-14 09:47 | Emergency (ER) | payer OTHER ==
[~2022-01-14] VITALS: Ht 170.2 cm; Wt 74.8 kg
[2022-01-14] MEDS ORDERED: MORPHINE SULFAT15 MG PO (17:04)
[2022-01-14] MEDS ORDERED: NAPROSYN500 MG PO (17:04)
[2022-01-14] MEDS ORDERED: ONDANSETRON ODT4 MG PO (17:04)
== END 2022-01-14 17:22 | disposition home or self-care (01) ==
LOC: ED 09:47
DX: N83.202 Unspecified ovarian cyst, left side (principal); N83.201 Unspecified ovarian cyst, right side; Z20.822 Contact with and (suspected) exposure to COVID-19; Z88.0 Allergy status to penicillin; Z88.8 Allergy status to other drugs, medicaments and biological substances; F17.200 Nicotine dependence, unspecified, uncomplicated
CPT/HCPCS: 36415; 74176; 76830; 76856; 80053; 81003; 84703; 85025; 96374; 96375; 99284-25; 99406; C9803; J1170; J2405; J7030; U0003